=== PATIENT | male | born 1960 | race Hispanic/Latino ===

== ENCOUNTER 2018-12-23 13:56 | Inpatient (IN) | payer MEDICARE ==
[2018-12-23] MEDS ORDERED: D50W (25GM) Syringe IV PRN (15:18)
[2018-12-23] MEDS ORDERED: TYLENOL PO PRN (15:34)
[2018-12-23] MEDS ORDERED: DULCOLAX PR PRN (15:34)
--- NOTE | 2018-12-23 15:45 | History and Physical Report ---
History of Present Illness Date: 12/23/18 Date of admission: 12/23/2018 Chief Complaint: Left BKA History of present illness: 58-year-old gentleman with a recent history of left great toe amputation was discharged home with IV antibiotics. Developed worsening infection and upon evaluation at the ER was admitted for further treatment of the infection with more antibiotics. Vascular surgery was consulted and after further evaluation recommended BKA due to gangrenous changes and poor vascular supply. He was evaluated by therapy and found to need acute inpatient rehabilitation in order to facilitate a safe discharge home with the best functional improvement po ssible. He will need a follow-up appointment with his vascular surgeon in the next week or so. Pain is poorly controlled and the patient states that he was on IV pain medications up until time of discharge. Informed him that he will be on oral pain medications here and that he should've been transitioned to oral pain medications before he was transferred for rehabilitation. We'll monitor his pain level and treat appropriately he is currently taking Dilaudid by mouth. Patient also states that he is having significant nausea without vomiting. In going over his medications it also appears that he has chronic constipation at home for which he does take lactulose on a daily basis with each meal. After the patient was cleared medically he was transferred for further rehabilitation. Past History Past Medical History: CAD, diabetes (Type 1), dialysis, hypertension, PVD, renal failure (hemodialysis) Past Surgical History: cholecystectomy, CABG, Other (fistula, lens implants, renal stone) Social history: , lives with family, full code. denies: smoking, alcohol abuse, prescription drug abuse Family history: CAD, diabetes, stroke Medications and Allergies Allergies Allergy/AdvReac Type Severity Reaction Status Date / Time morphine Allergy Nausea Verified 12/23/18 14:00 &VOMITING oxycodone Allergy Nausea & Verified 12/23/18 14:00 VOMITING Active Meds: Active Medications Acetaminophen (Tylenol) 650 mg PO Q6H PRN PRN Reason: Non Cardiac Pain or Temp>100.5 Amlodipine Besylate (Norvasc) 10 mg PO QDAY ESTELA Ascorbic Acid (Vitamin C) 250 mg PO QDAY ESTELA Aspirin (Halfprin Ec) 81 mg PO QDAY ESTELA Bisacodyl (Dulcolax) 10 mg [place] QDAY PRN PRN Reason: Constipation Calcitriol (Rocaltrol) 0.25 mcg PO QDAY ESTELA Dextrose (D50w (25gm) Syringe) 50 ml IV PRN PRN PRN Reason: Hypoglycemia Heparin Sodium (Porcine) (Heparin) 5,000 unit SUB-Q Q8HR ESTELA Hydromorphone HCl (Dilaudid) 2 mg PO Q6H PRN PRN Reason: Pain , Severe (7-10) Insulin Human Lispro (Humalog) 0 unit SUB-Q ACHS ESTELA; Protocol Isosorbide Mononitrate (Imdur) 60 mg PO QDAY ESTELA Lanthanum Carbonate (Fosrenol) 1,000 mg PO TIDWM [facility] Ondansetron HCl (Zofran Odt) 4 mg PO Q8H PRN PRN Reason: Nausea And Vomiting Pantoprazole Sodium (Protonix) 40 mg PO QDAY ESTELA Polyethylene Glycol (Miralax 3350) 17 gm PO QDAY PRN PRN Reason: Constipation Sodium Hypochlorite (Dakin's Half Strength) 1 applic TP DAILY ESTELA Zinc Sulfate (Zinc Sulfate) 220 mg PO QDAY ESTELA Review of Systems All systems: negative (ROS negative for 12 systems except as noted below with pertinent positives and negatives.) Constitutional: fatigue, no weight loss Ears, nose, mouth and throat: no decreased hearing, no dysphagia Cardiovascular: high blood pressure, decreased exercise tolerance, no chest pain, no orthopnea, no palpitations, no rapid/irregular heart beat Respiratory: snoring, no shortness of breath, no dyspnea on exertion Gastrointestinal: nausea, constipation, no vomiting, no diarrhea Genitourinary Male: no dysuria Musculoskeletal: shooting leg pain, leg numbness/tingling, limitation of motion, gait dysfunction, prior amputations, no shooting arm pain, no arm numbness/tingling Integumentary: wounds (left BKA), no rash, no pruritis, no redness Neurological: weakness, numbness, tingling, no head injury Psychiatric: no anxiety, no memory loss Endocrine: no cold intolerance Exam - Exam Narrative exam: MUSCULOSKELETAL SPECIALTY EXAM CONSTITUTIONAL: Well developed, well nourished, appropriately groomed LYMPHATIC: No appreciable abnormalities palpable in neck EENT: Visual scott full to confrontation. EOMI. Oropharynx clear. Hearing intact to soft voice RESPIRATORY: Clear to auscultation bilaterally, no increased work of breathing CARDIOVASCULAR: Regular Rate/ Rhythm, no swelling, edema or tenderness in BUE or BLE. Pulses palpable in all extremities. All extremities warm. GI: + bowel sounds, soft, NTTP, nondistended. INTEGUMENTARY: Normal, no lesion, rash, masses or bruising noted in extremities except for left BKA MUSCULOSKELETAL: BUE and BLE normal without defect, crepitus, subluxation, effusion, arthritic changes or TTP except for left BKA. BUE 4+/5, good ROM, with normal tone. RLE 4+/5 good ROM, with normal tone. LLE is reduced range of motion and strength primarily due to pain. NEURO: CN 2-12 grossly intact. Sensation intact in all extremities. Reflexes 2+ bilaterally at biceps, brachioradialis and right patella. No clonus at ankle. Coordination intact in BUE. No tremor noted in 4 extremities. POSTURE and GAIT: Sitting posture good. Balance appears reasonable. Gait deferred until seen with therapy. PSYCH: Alert, oriented x3, affect appears normal. Insight appears intact. Assessment and Plan Assessment and plan: Patient was assessed and evaluated for Acute Inpatient Rehab Unit. Due to the patients above-mentioned medical complexity, along with decreased functional mobility and self care, this patient continues to require and be sabiha ropriate for a comprehensive, multidisciplinary [id number] rehabilitation program. These needs cannot be met in an outpatient or other less intensive setting. The patient would continue to benefit from skilled therapy intervention for at least 3 hours per day, five days a week, with techniques specific to the needs of the patient to improve function, activities of daily living, and reintegration into the community. The patient continues to require: -- OT to improve ROM, self-care, and learn use of adaptive equipment -- PT to improve strength and balance, functional transfers, and ambulation with energy conservation techniques to improve functional mobility -- 24 hour RN to ensure and prevent skin breakdown, promote progressive independence while ensuring safety, ensure education regarding medications, and incorporation of the rehabilitation at the bedside -- 24 hour Poly Area Supervisor to coordinate this interdisciplinary program, and to manage/prevent complications as a result of the patients medical comorbidities. -Plan of care by day 4 -Weekly team conferences With such a program, there is a reasonable certainty that the goals individualized for this patient can be achieved within the specified length of stay. Status post left BKA: Monitor residual limb for any signs of infection are skin breakdown. We'll also monitor for any phantom sensation or phantom pain which the patient denies at this time. Patient does have sharp postsurgical pain which is still present and poorly controlled. Encouraged patient to maintain the stump protector in order to protect the residual limb. We'll work with the patient to develop his ability to improve his independent mobility, range of motion and strengthening of the residual limb in order to be an acceptable candidate for a prosthesis. Have discussed with the patient the increased level of work that is required to ambulate with a prosthetic limb and will encourage him to continue with maintaining his cardiovascular health. Diabetes type 1: Maintain the patient on his insulin pump. He is able to maintain his sugars reasonably at home and should be O to continue with that here. We will spot check him with our meter as well to ensure that he is not getting hyper-or hypoglycemic. Hypertension continue medications and adjust as needed for normotension. End-stage renal disease on hemodialysis: Thursday. Medications have been started from previous hospital. Have consulted nephrology for management of end-stage renal disease and hemodialysis. CAD: Continue aspirin, monitor for any further signs of cardiac issues. Patient is s/p CABG Constipation: Problem for the patient at home as well, he states that he does take lactulose typically with every meal. Have order that for him here as well with hold orders. Z73.6 ADL dysfunction: OT will work on improving ability to perform ADLs (including assistive devices) to increase independence and decrease caregiver burden and improve functional transfers and mobility training. R26.2 Difficulty walking: PT will work on gait training and proper use of assistive devices and advance as appropriate to use of stairs and outside ambulation on uneven surfaces. R26.81 Unsteadiness on feet: PT will work on improving static and dynamic sitting and standing balance as well as proper use of assistive devices to decrease risk of falls. R26.89 Abnormality of gait: PT will work to improve safety and efficiency of gait through neuromotor training and gait training along with instruction on proper use of assistive devices. M62.81 Muscle weakness: PT & OT will work on strengthening exercises to improve functional strength including mixture of closed and open kinetic chain exercises. R53.81 Debility: PT & OT will work on improving overall functional status to improve participation with ADLs, mobility and social involvement. R53.83 Fatigue: PT & OT will work on improving endurance through aerobic exercises and therapeutic activity while monitoring patients tolerance for activity and vital signs as needed. DVT ppx: Heparin Pain: Continue physical modalities in therapy and pain medications as needed to achieve functional pain control. Sleep: Monitor and address as needed. Bowel: Monitor and address as needed. Appetite: Monitor and address as needed. Discharge planning: Pending therapy progress and care plan meeting. Will continue discussion with therapy team, SW, patient and family. Restrictions/ Precautions: Falls WB status: FWB Functional Hx: ADLs: Independent Cognition: Independent Mobility: No AD Barriers to Discharge: Decreased mobility and ability to perform self care, balance deficits, weakness, poorly controlled pain, constipation Estimated Length of Stay: 1418 days Discharge Destination: Home with family POST ADMISSION PHYSICIAN EVALUATION I have examined the patient and find that functional status, medical condition and appropriateness for IRF admission are essentially unchanged from those described in the preadmission screening. Will monitor for worsening pain from the amputation site as well as phantom pain, wound infection, DVT/PE, bowel and bladder complications and complications due to ESRD, hypertension, diabetes and electrolyte abnormalities. Will attempt to avoid occurrence of these issues or treat them if they present themselves.
[2018-12-23] MEDS ORDERED: HumaLOG SUB-Q SCH (16:30)
[2018-12-23] MEDS: DILAUDID PO PRN ×2 (17:26→23:36)
[2018-12-23] MEDS ORDERED: Renal Caps PO ONE (18:00)
[2018-12-23] MEDS: [UNRECOGNIZED DRUG - OTHER] SUB-Q SCH (22:12)
[2018-12-23] MEDS: FOSRENOL PO SCH (22:13)
[2018-12-23] MEDS: HEPARIN SUB-Q SCH (22:13)
[2018-12-23] MEDS: CEPHULAC PO SCH (22:13)
[2018-12-24] MEDS: DILAUDID PO PRN ×3 (05:35→22:06)
[2018-12-24] MEDS: HEPARIN SUB-Q SCH ×3 (05:36→22:07)
[2018-12-24] MEDS: ZOFRAN ODT PO PRN (05:41)
[2018-12-24 06:32] LABS: Hematocrit 25.6 % (35.5-45.6); Hemoglobin 8.6 gm/dl (11.8-15.2); Mean Corpuscular HGB Conc 34 % (32-34); Mean Corpuscular Volume 97 fl (84-94); Platelet Count 244 K/mm3 (140-440); Red Blood Count 2.64 M/mm3 (3.65-5.03); Red Cell Distribution Width 14.5 % (13.2-15.2)
[2018-12-24 06:52] LABS: Albumin 3.1 g/dL (3.9-5); Calcium 9.2 mg/dL (8.4-10.2)
[2018-12-24] MEDS: [UNRECOGNIZED DRUG - OTHER] SUB-Q SCH ×4 (08:00→23:27)
[2018-12-24] MEDS: VITAMIN C PO SCH (08:45)
[2018-12-24] MEDS: ROCALTROL PO SCH (08:45)
[2018-12-24] MEDS: IMDUR PO SCH (08:45)
[2018-12-24] MEDS: NORVASC PO SCH (08:45)
[2018-12-24] MEDS: CEPHULAC PO SCH ×3 (08:46→22:06)
[2018-12-24] MEDS: HALFPRIN EC PO SCH (08:46)
[2018-12-24] MEDS: FOSRENOL PO SCH ×3 (08:46→22:07)
[2018-12-24] MEDS: PROTONIX PO SCH (08:46)
[2018-12-24] MEDS ORDERED: NACL 0.9% 100 ML IV PRN (09:00)
[2018-12-24] MEDS ORDERED: DAKIN'S HALF STRENGTH TP SCH (10:00)
[2018-12-24] MEDS: DAKIN'S HALF STRENGTH TP SCH (11:05)
[2018-12-24 11:15] LABS: Hepatitis B Surface Antigen Non-Reactive (Negative); Hepatitis C Virus Antibody Non-Reactive (NonReactive)
[2018-12-24] MEDS: ZINC SULFATE PO SCH (12:21)
--- NOTE | 2018-12-24 13:36 | Progress Note ---
Subjective Date of service: 12/24/18 Principal diagnosis: Left BKA Interval history: 58-year-old gentleman with a recent history of left great toe amputation was discharged home with IV antibiotics. Developed worsening infection and upon evaluation at the ER was admitted for further treatment of the infection with more antibiotics. Vascular surgery was consulted and after further evaluation recommended BKA due to gangrenous changes and poor vascular supply. He was evaluated by therapy and found to need acute inpatient rehabilitation in order to facilitate a safe discharge home with the best functional improvement possible. He will need a follow-up appointment with his vascular surgeon in the next week or so. Pain is poorly controlled and the patient states that he was on IV pain medications up until time of discharge. Informed him that he will be on oral pain medications here and that he should've been transitioned to oral pain medications before he was transferred for rehabilitation. We'll monitor his pain level and treat appropriately he is currently taking Dilaudid by mouth. Patient also states that he is having significant nausea without vomiting. In going over his medications it also appears that he has chronic constipation at home for which he does take lactulose on a daily basis with each meal. After the patient was cleared medically he was transferred for further rehabilitation. Patient is participating in therapy and making reasonable progress. Taking rest breaks as needed. -BM / + flatus. Discussed use of suppository. States pain is not well controlled. Will increase frequency of pain medication. Denies palpitations, dyspnea, cough, N/V, weakness, or joint pain. Looked at wound with team this AM. All records, vitals, labs and medications were reviewed. No other issues per patient, nursing or therapy. Objective - Exam Narrative Exam: MUSCULOSKELETAL SPECIALTY EXAM CONSTITUTIONAL: Well developed, well nourished, appropriately groomed EENT: EOMI. Hearing intact to soft voice RESPIRATORY: Clear to auscultation bilaterally, no increased work of breathing CARDIOVASCULAR: Regular Rate/ Rhythm, no swelling, edema or tenderness in BUE or BLE. All extremities warm. GI: + bowel sounds, soft, NTTP, nondistended. INTEGUMENTARY: Normal, no lesion, rash, masses or bruising noted in extremities except for left BKA which has sutures and pao in place with minimal serosanguinous drainage. No signs of infection MUSCULOSKELETAL: BUE and BLE normal without defect, crepitus, subluxation, effusion, arthritic changes or TTP except for left BKA. BUE 4+/5, good ROM, with normal tone. RLE 4+/5 good ROM, with normal tone. LLE is reduced range of motion and strength primarily due to pain. NEURO: CN 2-12 grossly intact. Sensation intact in all extremities. No tremor noted in 4 extremities. POSTURE and GAIT: Sitting posture good. Balance appears reasonable. Gait deferred until seen with therapy. PSYCH: Alert, oriented x3, affect appears normal. Insight appears intact. - Constitutional Vitals: Vital Signs - 12hr 12/24/18 12/24/18 12/24/18 04:01 04:44 07:34 Temperature 36.3 C L 37.1 C 36.8 C Pulse Rate 102 H 96 H Respiratory 18 18 Rate Blood Pressure 152/65 160/65 O2 Sat by Pulse 97 94 Oximetry 12/24/18 12/24/18 08:45 12:14 Temperature 36.7 C Pulse Rate 96 H 117 H Respiratory 18 Rate Blood Pressure 160/65 178/64 O2 Sat by Pulse 98 Oximetry - Allied health notes Allied health notes reviewed: nursing, PT, OT FIMS assessment as documented by PT/OT/ST: Social interaction/Memory/Problem solving Social Interaction FIM Score 7. Complete [place] (Interacts appropriately. Controls temper.) Memory FIM Score 7. Complete [place] (Remembers people and routines.) Problem Solving FIM Score 7. Complete [place] (Solves complex problems. Self corrects.) - Labs CBC & Chem 7: 12/24/18 06:14 12/24/18 06:14 Labs: Laboratory Results - last 72 hr 12/24/18 12/24/18 12/24/18 06:14 06:14 10:01 WBC 11.3 H RBC 2.64 L Hgb 8.6 L Hct 25.6 L MCV 97 H MCH 33 H MCHC 34 RDW 14.5 Plt Count 244 Sodium 136 L Potassium 4.7 Chloride 95.0 L Carbon Dioxide 28 Anion Gap 18 BUN 35 H Creatinine 6.9 H Estimated GFR 8 BUN/Creatinine Ratio 5 Glucose 123 H POC Glucose Calcium 9.2 Total Bilirubin 0.30 AST 24 ALT 20 Alkaline Phosphatase 98 Total Protein 6.0 L Albumin 3.1 L Albumin/Globulin Ratio 1.1 Hepatitis A IgM Ab Non-reactive Hep Bs Antigen Non-reactive Hep B Core IgM Ab Non-reactive Hepatitis C Antibody Non-reactive 12/24/18 11:59 WBC RBC Hgb Hct MCV MCH MCHC RDW Plt Count Sodium Potassium Chloride Carbon Dioxide Anion Gap BUN Creatinine Estimated GFR BUN/Creatinine Ratio Glucose POC Glucose 215 H Calcium Total Bilirubin AST ALT Alkaline Phosphatase Total Protein Albumin Albumin/Globulin Ratio Hepatitis A IgM Ab Hep Bs Antigen Hep B Core IgM Ab Hepatitis C Antibody Assessment and Plan Status post left BKA: Monitor residual limb for any signs of infection are skin breakdown. We'll also monitor for any phantom sensation or phantom pain which the patient denies at this time. Patient does have sharp postsurgical pain which is still present and poorly controlled. Encouraged patient to maintain the stump protector in order to protect the residual limb. We'll work with the patient to develop his ability to improve his independent mobility, range of motion and strengthening of the residual limb in order to be an acceptable candidate for a prosthesis. Have discussed with the patient the increased level of work that is required to ambulate with a prosthetic limb and will encourage him to continue with maintaining his cardiovascular health. Diabetes type 1: Maintain the patient on his insulin pump. He is able to maintain his sugars reasonably at home and should be able to continue with that here. We will spot check him with our meter as well to ensure that he is not getting hyper-or hypoglycemic. Hypertension continue medications and adjust as needed for normotension. End-stage renal disease on hemodialysis: Thursday. Medications have been started from previous hospital. Have consulted nephrology for management of end-stage renal disease and hemodialysis. CAD: Continue aspirin, monitor for any further signs of cardiac issues. Patient is s/p CABG Constipation: Problem for the patient at home as well, he states that he does take lactulose typically with every meal. Have order that for him here as well with hold orders. Z73.6 ADL dysfunction: OT will work on improving ability to perform ADLs (including assistive devices) to increase independence and decrease caregiver burden and improve functional transfers and mobility training. R26.2 Difficulty walking: PT will work on gait training and proper use of assistive devices and advance as appropriate to use of stairs and outside ambulation on uneven surfaces. R26.81 Unsteadiness on feet: PT will work on improving static and dynamic sitting and standing balance as well as proper use of assistive devices to decrease risk of falls. R26.89 Abnormality of gait: PT will work to improve safety and efficiency of gait through neuromotor training and gait training along with instruction on proper use of assistive devices. M62.81 Muscle weakness: PT & OT will work on strengthening exercises to improve functional strength including mixture of closed and open kinetic chain exercises. R53.81 Debility: PT & OT will work on improving overall functional status to improve participation with ADLs, mobility and social involvement. R53.83 Fatigue: PT & OT will work on improving endurance through aerobic exercises and therapeutic activity while monitoring patients tolerance for activity and vital signs as needed. DVT ppx: Heparin Pain: Continue physical modalities in therapy and pain medications as needed to achieve functional pain control. Increase pain med frequency Sleep: Monitor and address as needed. Bowel: Monitor and address as needed. Appetite: Monitor and address as needed. Discharge planning: Pending therapy progress and care plan meeting. Will con tinue discussion with therapy team, SW, patient and family. Restrictions/ Precautions: Falls WB status: FWB Functional Hx: ADLs: Independent Cognition: Independent Mobility: No AD Barriers to Discharge: Decreased mobility and ability to perform self care, balance deficits, weakness, poorly controlled pain, constipation Estimated Length of Stay: 1418 days Discharge Destination: Home with family
--- NOTE | 2018-12-24 14:01 | Consultation ---
History of Present Illness - Reason for Consult Consult date: 12/24/18 end stage renal disease - History of Present Illness This is a 58 year old man with ESRD who presents for acute inpatient rehab. He had a recent left great toe amputation but developed worsening infection and ultimately had BKA due to gangrenous changes and poor vascular supply. He usually dialyzes MWF at [facility], and has been doing well his recent sessions and denies any issues with HD. No recent cramping, lightheadedness, dizziness. Currently, in good spirits and states that he wants to work on his strength. No chest pain, dyspnea, nausea, vomiting noted. Access has been working well. Past History Past Medical History: CAD, diabetes (Type 1), dialysis, hypertension, PVD, renal failure (hemodialysis) Past Surgical History: cholecystectomy, CABG, Other (fistula, lens implants, renal stone) Social history: , lives with family, full code. denies: smoking, alcohol abuse, prescription drug abuse Family history: CAD, diabetes, stroke Medications and Allergies Allergies Allergy/AdvReac Type Severity Reaction Status Date / Time morphine Allergy Nausea Verified 12/23/18 14:00 &VOMITING oxycodone Allergy Nausea & Verified 12/23/18 14:00 VOMITING Home Medications Medication Instructions Recorded Confirmed Last Taken Type Ascorbic Acid [Vitamin C] 250 mg PO QDAY 12/24/18 12/24/18 Unknown History Bimatoprost [Lumigan] 1 drop OU HS 12/24/18 12/24/18 Unknown History Calcitriol [Rocaltrol] 0.25 mcg PO DAILY 12/24/18 12/24/18 Unknown History ISOSORBIDE MONOnitrate [Imdur ER] 60 mg PO DAILY 12/24/18 12/24/18 Unknown History Lactulose 20 gram PO TID 12/24/18 12/24/18 Unknown History Lanthanum Carbonate [Fosrenol] 1,000 mg PO DAILY 12/24/18 12/24/18 Unknown H istory Latanoprost 0.005% 1 drop OU HS 12/24/18 12/24/18 Unknown History Losartan [Cozaar] 25 mg PO DAILY 12/24/18 12/24/18 Unknown History Pantoprazole [Protonix] 40 mg PO QDAY 12/24/18 12/24/18 Unknown History Prochlorperazine [Compazine] 1 tab PO TID PRN 12/24/18 12/24/18 Unknown History Rivaroxaban [Xarelto] 2.5 mg PO DAILY 12/24/18 12/24/18 Unknown History Senna 1 tab PO BID 12/24/18 12/24/18 Unknown History Zinc Sulfate 1 cap PO DAILY 12/24/18 12/24/18 Unknown History amLODIPine [Norvasc] 10 mg PO DAILY 12/24/18 12/24/18 Unknown History Active Meds: Active Medications Acetaminophen (Tylenol) 650 mg PO Q6H PRN PRN Reason: Non Cardiac Pain or Temp>100.5 Amlodipine Besylate (Norvasc) 10 mg PO QDAY [facility] Last Admin: 12/24/18 08:45 Dose: 10 mg Documented by: Ascorbic Acid (Vitamin C) 250 mg PO QDAY [facility] Last Admin: 12/24/18 08:45 Dose: 250 mg Documented by: Aspirin (Halfprin Ec) 81 mg PO QDAY [facility] Last Admin: 12/24/18 08:46 Dose: 81 mg Documented by: Bisacodyl (Dulcolax) 10 mg [place] QDAY PRN PRN Reason: Constipation Calcitriol (Rocaltrol) 0.25 mcg PO QDAY [facility] Last Admin: 12/24/18 08:45 Dose: 0.25 mcg Documented by: Dextrose (D50w (25gm) Syringe) 50 ml IV PRN PRN PRN Reason: Hypoglycemia Epoetin Zack (Procrit) 4,000 unit IV ALFRED PRN PRN Reason: hemodialysis Heparin Sodium (Porcine) (Heparin) 5,000 unit SUB-Q Q8HR [facility] Last Admin: 12/24/18 05:36 Dose: 5,000 unit Documented by: Heparin Sodium (Porcine) (Heparin 10,000 Units/10 Ml) 2,000 unit IV ALFRED PRN PRN Reason: hemodialysis Heparin Sodium (Porcine) (Heparin 10,000 Units/10 Ml) 400 unit IV ALFRED PRN PRN Reason: hemodialysis Hydromorphone HCl (Dilaudid) 2 mg PO Q4H PRN PRN Reason: Pain , Severe (7-10) Sodium Chloride (Nacl 0.9%) 100 mls @ 999 mls/hr IV ALFRED PRN PRN Reason: Hypotension Isosorbide Mononitrate (Imdur) 60 mg PO QDAY [facility] Last Admin: 12/24/18 08:45 Dose: 60 mg Documented by: Lactulose (Cephulac) 20 gm PO TID [facility] Last Admin: 12/24/18 08:46 Dose: 20 gm Documented by: Lanthanum Carbonate (Fosrenol) 1,000 mg PO TIDWM [facility] Last Admin: 12/24/18 12:21 Dose: 1,000 mg Documented by: Miscellaneous Medication (Nph) 0 pump SUB-Q ACHS [facility] Last Admin: 12/24/18 12:03 Dose: Not Given Documented by: Ondansetron HCl (Zofran Odt) 4 mg PO Q8H PRN PRN Reason: Nausea And Vomiting Last Admin: 12/24/18 05:41 Dose: 4 mg Documented by: Pantoprazole Sodium (Protonix) 40 mg PO QDAY [facility] Last Admin: 12/24/18 08:46 Dose: 40 mg Documented by: Paricalcitol (Zemplar) 1 mcg IV ALFRED PRN PRN Reason: hemodialysis Polyethylene Glycol (Miralax 3350) 17 gm PO QDAY PRN PRN Reason: Constipation Sodium Hypochlorite (Dakin's Half Strength) 1 applic TP DAILY [facility] Zinc Sulfate (Zinc Sulfate) 220 mg PO QDAY [facility] Last Admin: 12/24/18 12:21 Dose: 220 mg Documented by: Review of Systems All systems: negative (as per HPI) Exam - Vital Signs Vital signs: Vital Signs Resp 18 12/23/18 17:26 - General Appearance General appearance: well-developed, well-nourished, appears stated age EENT: PERRL, mucous membranes moist Neck: Present: neck supple, trachea midline. Absent: JVD/HJR, Masses Respiratory: Clear to Ascultation Heart: regular, normal heart rate, S1S2, no murmurs Gastrointestinal: Present: normal. Absent: tenderness, distended, masses, guarding Integumentary: no rash, warm and dry Neurologic: no focal deficit, alert and oriented x3, gait normal, strength 5/5 Musculoskeletal: Present: other (BKA noted) Psychiatric: mood/affect appropriate, cooperative Additional exam: RUE AVF with good thrill, bruit Results - Lab Results 12/24/18 06:14 12/24/18 06:14 Most recent lab results Calcium 9.2 mg/dL (8.4-10.2) 12/24/18 06:14 Assessment and Plan Assessment: -ESRD on HD -s/p left BKA -DM on insulin pump -HTN -CAD s/p CABG This is a 58 year old man with ESRD who presents with need for inpatient rehab s/p BKA Plan: -continue HD MWF while inpatient -will continue outpatient ESAs and vitamin D agonists with HD -hold IV iron given need for antibiotics -UF as tolerated -continue home HTN medications -avoid nephrotoxins, renally dose all medications Thank you for this consult. Please do not hesitate to reach out to us with questions or concerns.
[2018-12-24] MEDS: HEPARIN 10,000 UNITS/10 ML IV PRN ×2 (15:35→16:00)
[2018-12-24] MEDS ORDERED: NACL 0.9 (PRIMING MACHINE ONLY DIALYSIS) MC ONE (17:42)
[2018-12-24] MEDS: ZEMPLAR IV PRN (18:34)
[2018-12-24] MEDS: PROCRIT IV PRN (18:34)
[2018-12-25] MEDS: HEPARIN SUB-Q SCH ×3 (05:35→23:59)
[2018-12-25] MEDS: DILAUDID PO PRN ×2 (05:38→20:20)
[2018-12-25] MEDS: IMDUR PO SCH (09:14)
[2018-12-25] MEDS: HALFPRIN EC PO SCH (09:14)
[2018-12-25] MEDS: ZINC SULFATE PO SCH (09:14)
[2018-12-25] MEDS: CEPHULAC PO SCH ×3 (09:14→22:09)
[2018-12-25] MEDS: VITAMIN C PO SCH (09:14)
[2018-12-25] MEDS: FOSRENOL PO SCH ×3 (09:15→17:32)
[2018-12-25] MEDS: PROTONIX PO SCH (09:15)
[2018-12-25] MEDS: NORVASC PO SCH (09:15)
[2018-12-25] MEDS: ROCALTROL PO SCH (09:15)
[2018-12-25] MEDS: [UNRECOGNIZED DRUG - OTHER] SUB-Q SCH ×4 (09:23→23:35)
[2018-12-25] MEDS: DAKIN'S HALF STRENGTH TP SCH (12:45)
[2018-12-25] MEDS: ZOFRAN ODT PO PRN (12:46)
--- NOTE | 2018-12-25 13:11 | Progress Note ---
Assessment and Plan Assessment: -ESRD on HD -s/p left BKA -DM on insulin pump -HTN -CAD s/p CABG Plan: -continue HD MWF while inpatient -will continue outpatient ESAs and vitamin D agonists with HD -hold IV iron given need for antibiotics -UF as tolerated -continue home HTN medications -avoid nephrotoxins, renally dose all medications Subjective Date of service: 12/25/18 Principal diagnosis: Left BKA Interval history: resting in bed today Objective - Exam Narrative Exam: General appearance: well-developed, well-nourished, appears stated age EENT: PERRL, mucous membranes moist Neck: Present: neck supple, trachea midline. Absent: JVD/HJR, Masses Respiratory: Clear to Ascultation Heart: regular, normal heart rate, S1S2, no murmurs Gastrointestinal: Present: normal. Absent: tenderness, distended, masses, guarding Integumentary: no rash, warm and dry Neurologic: no focal deficit, alert and oriented x3, gait normal, strength 5/5 Musculoskeletal: Present: other (BKA noted) Psychiatric: mood/affect appropriate, cooperative Additional exam: RUE AVF with good thrill, bruit - Vital Signs Vital signs: Vital Signs - 12hr 12/25/18 12/25/18 12/25/18 05:00 07:58 09:14 Temperature 98.3 F 98.7 F Pulse Rate 96 H 84 84 Respiratory 18 18 Rate Blood Pressure 143/57 143/57 Blood Pressure 146/51 [Left] O2 Sat by Pulse 97 96 Oximetry 12/25/18 12:01 Temperature 98.1 F Pulse Rate 93 H Respiratory 18 Rate Blood Pressure 131/47 Blood Pressure [Left] O2 Sat by Pulse 98 Oximetry - Lab 12/24/18 06:14 12/24/18 06:14 Most recent lab results Calcium 9.2 mg/dL (8.4-10.2) 12/24/18 06:14 Medications & Allergies - Medications Allergies/Adverse Reactions: Allergies morphine Allergy (Verified 12/23/18 14:00) Nausea &VOMITING oxycodone Allergy (Verified 12/23/18 14:00) Nausea & VOMITING Home Medications: Home Medications Medication Instructions Recorded Confirmed Last Taken Type Ascorbic Acid [Vitamin C] 250 mg PO QDAY 12/24/18 12/24/18 Unknown History Bimatoprost [Lumigan] 1 drop OU HS 12/24/18 12/24/18 Unknown History Calcitriol [Rocaltrol] 0.25 mcg PO DAILY 12/24/18 12/24/18 Unknown History ISOSORBIDE MONOnitrate [Imdur ER] 60 mg PO DAILY 12/24/18 12/24/18 Unknown History Lactulose 20 gram PO TID 12/24/18 12/24/18 Unknown History Lanthanum Carbonate [Fosrenol] 1,000 mg PO DAILY 12/24/18 12/24/18 Unknown History Latanoprost 0.005% 1 drop OU HS 12/24/18 12/24/18 Unknown History Losartan [Cozaar] 25 mg PO DAILY 12/24/18 12/24/18 Unknown History Pantoprazole [Protonix] 40 mg PO QDAY 12/24/18 12/24/18 Unknown History Prochlorperazine [Compazine] 1 tab PO TID PRN 12/24/18 12/24/18 Unknown History Rivaroxaban [Xarelto] 2.5 mg PO DAILY 12/24/18 12/24/18 Unknown History Senna 1 tab PO BID 12/24/18 12/24/18 Unknown History Zinc Sulfate 1 cap PO DAILY 12/24/18 12/24/18 Unknown History amLODIPine [Norvasc] 10 mg PO DAILY 12/24/18 12/24/18 Unknown History Active Medications: Generic Name Dose Route Start Last Admin Trade Name Freq PRN Reason Stop Dose Admin Acetaminophen 650 mg 12/23/18 15:34 Tylenol PO Q6H PRN Non Cardiac Pain or Temp>100.5 Amlodipine Besylate 10 mg 12/24/18 08:00 12/25/18 09:15 Norvasc PO 10 mg QDAY ESTELA Administration Ascorbic Acid 250 mg 12/24/18 08:00 12/25/18 09:14 Vitamin C PO 250 mg QDAY ESTELA Administration Aspirin 81 mg 12/24/18 08:00 12/25/18 09:14 Halfprin Ec PO 81 mg QDAY ESTELA Administration Bisacodyl 10 mg 12/23/18 15:34 Dulcolax [place] QDAY PRN Constipation Calcitriol 0.25 mcg 12/24/18 08:00 12/25/18 09:15 Rocaltrol PO 0.25 mcg QDAY ESTELA Administration Dextrose 50 ml 12/23/18 15:18 D50w (25gm) Syringe IV PRN PRN Hypoglycemia Epoetin Zack 4,000 unit 12/24/18 09:00 12/24/18 18:34 Procrit IV 4,000 unit ALFRED PRN Administration hemodialysis Heparin Sodium (Porcine) 5,000 unit 12/23/18 22:00 12/25/18 05:35 Heparin SUB-Q 5,000 unit Q8HR ESTELA Administration Heparin Sodium (Porcine) 2,000 unit 12/24/18 09:00 12/24/18 15:35 Heparin 10,000 Units/10 Ml IV 2,000 unit ALFRED PRN Administration hemodialysis Heparin Sodium (Porcine) 400 unit 12/24/18 09:00 12/24/18 16:00 Heparin 10,000 Units/10 Ml IV 400 unit ALFRED PRN Administration hemodialysis Hydromorphone HCl 2 mg 12/24/18 12:41 12/25/18 05:38 Dilaudid PO 2 mg Q4H PRN Administration Pain , Severe (7-10) Sodium Chloride 100 mls @ 999 mls/hr 12/24/18 09:00 Nacl 0.9% IV ALFRED PRN Hypotension Isosorbide Mononitrate 60 mg 12/24/18 08:00 12/25/18 09:14 Imdur PO 60 mg QDAY ESTELA Administration Lactulose 20 gm 12/23/18 20:00 12/25/18 09:14 Cephulac PO 20 gm TID ESTELA Administration Lanthanum Carbonate 1,000 mg 12/23/18 17:00 12/25/18 12:43 Fosrenol PO 1,000 mg TIDWM ESTELA Administration Miscellaneous Medication 0 pump 12/23/18 22:00 12/25/18 12:52 Nph SUB-Q Not Given ACHS ESTELA Ondansetron HCl 4 mg 12/23/18 15:34 12/25/18 12:46 Zofran Odt PO 4 mg Q8H PRN Administration Nausea And Vomiting Pantoprazole Sodium 40 mg 12/24/18 08:00 12/25/18 09:15 Protonix PO 40 mg QDAY ESTELA Administration Paricalcitol 1 mcg 12/24/18 09:00 12/24/18 18:34 Zemplar IV 1 mcg ALFRED PRN Administration hemodialysis Polyethylene Glycol 17 gm 12/23/18 15:34 Miralax 3350 PO QDAY PRN Constipation Sodium Hypochlorite 1 applic 12/24/18 10:00 12/25/18 12:45 Dakin's Half Strength TP 1 applicatio DAILY ESTELA Administration Zinc Sulfate 220 mg 12/24/18 08:00 12/25/18 09:14 Zinc Sulfate PO 220 mg QDAY ESTELA Administration
[2018-12-25] MEDS ORDERED: ZOFRAN ODT PO PRN (17:44)
--- NOTE | 2018-12-25 18:25 | XRay Report ---
ABDOMEN 1 VIEW INDICATION / CLINICAL INFORMATION: Nausea with vomiting, constipation. COMPARISON: None available. FINDINGS: TUBES / LINES: None. BOWEL GAS PATTERN: The colon contains a very large amount of stool with scattered gas. No dilated bow el loops are seen. FREE AIR / EXTRALUMINAL GAS: None seen. ADDITIONAL FINDINGS: There is severe generalized atherosclerosis. IMPRESSION: Findings consistent with constipation. Signer Name: Abdulkadir Salomon MD Signed: 12/25/2018 6:21 PM Workstation Name: [id number]
[2018-12-25 19:54] LABS: Hematocrit 26.7 % (35.5-45.6); Mean Corpuscular HGB Conc 34 % (32-34); Mean Corpuscular Volume 97 fl (84-94); Platelet Count 289 K/mm3 (140-440); Red Blood Count 2.75 M/mm3 (3.65-5.03); Red Cell Distribution Width 15.4 % (13.2-15.2)
[2018-12-25] MEDS: PHENERGAN PO PRN (20:19)
[2018-12-25 21:29] LABS: Calcium 9.4 mg/dL (8.4-10.2)
--- NOTE | 2018-12-25 21:35 | IRU Plan of Care ---
Interdisciplinary Plan of Care - IP IRU INTERDISCIPLINARY PLAN: [facility] Unit Plan of Care IRU Interdisciplinary Care Plan Start: 12/23/18 16:58 Freq: Admission then PRN Status: Active Protocol: Document 12/25/18 19:20 TH (Rec: 12/25/18 19:24 TH [id number]) Interdisciplinary Problem List Interdisciplinary Problem List Interdisciplinary Problem List Impaired Dressing,Impaired Query Text:Answers will Trigger Problems Mobility,Impaired Transfers, and Outcomes on Worklist. Impaired Toileting,Pain Management,Knowledge Deficits, Impaired Skin/Tissue Integrity ,Adjustment to Disability, Discharge Concerns,Community Reintergration,Impaired Home Management,Impaired Safety, Medications Education,Impaired Cardiovascular System IRU Interdisciplinary Care Plan Therapy Services Therapy Services Will Include: Physical Therapy,Occupational Query Text:Patient will be seen for a Therapy minimum of 3 hours of daily therapy 5 out of 7 days a week. Therapy intensity may be adjusted within a 7 consecutive day period to effectively serve the individual needs of the patient. Treatment Frequency/Intensity/Duration Treatment Frequency 5 days per week Treatment Intensity 3 hours per day Treatment Duration 10-14 days Problem Area: Eating/Swallowing Eating/Swallowing Outcomes Eating/Swallowing Interventions Problem Area: Bathing/Grooming Bathing/Grooming Outcomes Improve [place] w/ Grooming,Improve [place] w/ Bathing Bathing/Grooming Interventions ADL Training,Use of Assistive Devices,Therapeutic Exercise, Therapeutic Activity, Neuromuscular Re-Education, Balance Work,Activity Tolerance Work,Patient/ Caregiver Education Problem Area: Dressing Dressing Outcomes Improve [place] w/ UB Dressing,Improve [place] w/ LB Dressing Dressing Interventions ADL Training,Use of Assistive Devices,Neuromuscular Re- Education,Therapeutic Exercise ,Balance Work,Modalities, Patient/Caregiver Education Problem Area: Mobility Mobility Outcomes Improve [place] w/ Bed Mobility,Improve [place] w/ Ambulation,Improve [place] w/ Wheelchair Mobility Interventions Therapeutic Exercise, Neuromuscular Re-Ed.,Activity Tolerance Work,Modalities,Use of Assistive Devices,Patient/ Caregiver Education,Bed Mobility Work,Household Mobility Work,W/C Mobility Work Problem Area: Transfers Transfers Outcomes Improve [place] w/ Bed Transfers,Improve [place] w/ Toilet Transfers,Improve [place] w/ Tub/Shower Transfers Transfers Interventions Transfer Training,Therapeutic Exercise,Neuromuscular Re- Education,Visual/Perceptual Training,Activity Tolerance Work,Use of Assistive Devices, Patient/Caregiver Education Problem Area: Bowel/Bladder Managment Bowel/Bladder Outcomes Bowel/Bladder Interventions Problem Area: Toileting Toileting Outcomes Improve [place] w/ Toileting Toileting Interventions ADL Training,Balance Work Problem Area: Nutrition Nutrition Outcomes Nutrition Interventions Problem Area: Comprehension Comprehension Outcomes Comprehension Interventions Problem Area: Expression Expression Outcomes Expression Interventions Problem Area: Problem Solving Problem Solving Outcomes Problem Solving Interventions Problem Area: Memory Memory Outcomes Memory Interventions Problem Area: Pain Management Pain Management Outcomes Pain Management Interventions Problem Area: Knowledge Deficits Knowledge Deficits Outcomes Knowledge Deficits Interventions Problem Area: Skin/Tissue Integrity Skin/Tissue Integrity Outcomes Exhibit Healing of Wound/ Incision,Demonstrate Understanding of Self Wound Care Skin/Tissue Integrity Interventions Skin/Wound Care,Dressing Change Education Problem Area: Social Interaction Social Interaction Outcomes Social Interaction Interventions Problem Area: Adjustment to Disability Adjustment to Disability Outcomes Adjustment to Disability Interventions Problem Area: Discharge Concerns Discharge Concerns Outcomes Discharge w/ Necessary Equipment,Have Home Health/ Outpatient Services Discharge Concerns Interventions Discharge Planning,Family/ Caregiver Training Problem Area: Community Reintegration Community Reintegration Outcomes Community Reintegration Interventions Problem Area: Home Management Home Management Outcomes Improve [place] w/ Home Management Home Management Interventions Meal Preparation,Clothing Care ,Activity Tolerance Work, Leisure Skills Development, House Cleaning,Shopping, Patient/Caregiver Education Problem Area: Safety Safety Outcomes Provide Safe Environment, Perform Selfcare Safely, Demonstrate Good Safety w/ Transfers/Mobility Safety Interventions Identify Fall Risk,[place] Pt. to Environment,Reduce Environmental Hazards,Neuro Check Assessment,Implement Mechanical Devices, i.e. Chair Alarm (Post Fall Update),Re- Educate Patient/Caregiver for Safety (Post Fall Update) Problem Area: Medication Education Medication Education Outcomes Medication Education Interventions Problem Area: Diabetes Education Diabetes Education Outcomes Demonstrate Knowledge of Resources Availlable in Diabetic Ed. Folder Diabetes Education Interventions Give Pt. Diabetes Education Folder,Discuss Pathophysiology of Diabetes Problem Area: Oxygenation Oxygenation Outcomes Oxygenation Interventions Problem Area: Cardiovascular Cardiovascular Outcomes Cardiovascular Interventions Physician Only Medical Prognosis and Rehabilitation Good medical prognosis and good rehab potential. Will continue to work to improve ability to perform ADLs and mobility and prepare him for acceptance of prosthesis and return home. Potential (Completed by Physician) This plan of care has been developed based on the findings from the pre- admission assessment, post admission physician evaluation, information gathered from the assessments from all therapy disciplines and other pertinent clinicians. The plan of care has been reviewed and discussed in collaboration with the interdisciplinary team. The plan of care will be reviewed and updated at least weekly.
[2018-12-25] MEDS ORDERED: FLEET MINERAL OIL PR ONE (22:00)
[2018-12-25] MEDS: SENOKOT PO SCH (23:00)
[2018-12-26] MEDS: HEPARIN SUB-Q SCH ×4 (05:41→22:39)
[2018-12-26] MEDS: DILAUDID PO PRN ×3 (06:27→20:10)
[2018-12-26] MEDS: PHENERGAN PO PRN ×2 (06:31→18:26)
[2018-12-26] MEDS: [UNRECOGNIZED DRUG - OTHER] SUB-Q SCH ×4 (08:35→22:40)
[2018-12-26] MEDS: PROTONIX PO SCH (10:30)
[2018-12-26] MEDS: ZINC SULFATE PO SCH (10:30)
[2018-12-26] MEDS: SENOKOT PO SCH ×2 (10:30→22:38)
[2018-12-26] MEDS: ROCALTROL PO SCH (10:30)
[2018-12-26] MEDS: VITAMIN C PO SCH (10:30)
[2018-12-26] MEDS: IMDUR PO SCH (10:31)
[2018-12-26] MEDS: HALFPRIN EC PO SCH (10:31)
[2018-12-26] MEDS: NORVASC PO SCH (10:31)
[2018-12-26] MEDS: FOSRENOL PO SCH ×3 (10:32→17:51)
[2018-12-26] MEDS: CEPHULAC PO SCH ×3 (10:39→20:11)
[2018-12-26] MEDS: DAKIN'S HALF STRENGTH TP SCH (13:15)
[2018-12-27] MEDS: HEPARIN SUB-Q SCH ×3 (05:46→21:51)
[2018-12-27 07:54] LABS: Hematocrit 26.8 % (35.5-45.6); Mean Corpuscular HGB Conc 34 % (32-34); Mean Corpuscular Volume 98 fl (84-94); Platelet Count 282 K/mm3 (140-440); Red Blood Count 2.74 M/mm3 (3.65-5.03); Red Cell Distribution Width 15.2 % (13.2-15.2)
[2018-12-27 08:05] LABS: Calcium 9.2 mg/dL (8.4-10.2)
[2018-12-27] MEDS: FOSRENOL PO SCH ×4 (09:14→21:48)
[2018-12-27] MEDS: PROTONIX PO SCH (09:14)
[2018-12-27] MEDS: ZINC SULFATE PO SCH (09:14)
[2018-12-27] MEDS: HALFPRIN EC PO SCH (09:15)
[2018-12-27] MEDS: ROCALTROL PO SCH (09:15)
[2018-12-27] MEDS: CEPHULAC PO SCH ×3 (09:15→21:48)
[2018-12-27] MEDS: VITAMIN C PO SCH (09:15)
[2018-12-27] MEDS: SENOKOT PO SCH ×2 (09:16→22:03)
[2018-12-27] MEDS: DILAUDID PO PRN ×2 (09:16→21:50)
[2018-12-27] MEDS: [UNRECOGNIZED DRUG - OTHER] SUB-Q SCH ×4 (09:17→21:54)
[2018-12-27] MEDS: IMDUR PO SCH (09:21)
[2018-12-27] MEDS: NORVASC PO SCH (09:21)
[2018-12-27] MEDS: PHENERGAN PO PRN (09:27)
--- NOTE | 2018-12-27 09:53 | Progress Note ---
Subjective Date of service: 12/27/18 Principal diagnosis: Left BKA Interval history: 58-year-old gentleman with a recent history of left great toe amputation was discharged home with IV antibiotics. Developed worsening infection and upon evaluation at the ER was admitted for further treatment of the infection with more antibiotics. Vascular surgery was consulted and after further evaluation recommended BKA due to gangrenous changes and poor vascular supply. He was evaluated by therapy and found to need acute inpatient rehabilitation in order to facilitate a safe discharge home with the best functional improvement possible. He will need a follow-up appointment with his vascular surgeon in the next week or so. Pain is poorly controlled and the patient states that he was on IV pain medications up until time of discharge. Informed him that he will be on oral pain medications here and that he should've been transitioned to oral pain medications before he was transferred for rehabilitation. We'll monitor his pain level and treat appropriately he is currently taking Dilaudid by mouth. Patient also states that he is having significant nausea without vomiting. In going over his medications it also appears that he has chronic constipation at home for which he does take lactulose on a daily basis with each meal. After the patient was cleared medically he was transferred for further rehabilitation. Patient is participating in therapy and making reasonable progress. Taking rest breaks as needed. +BM. I was called this weekend due to nausea and vomiting. Patient has issues with constipation so I ordered a KUB which showed significant stool burden without signs of ileus or obstruction. I adjusted bowel medications based on those findings. Patient apparently refused an enema but did finally started to have several large bowel movements with the rest of the medications he was taking. He states today that he is not having nausea and vomiting and feels better than he did over the weekend. States pain is still not well controlled and feels like the pain medications are not lasting long enough. On Thursday we decreased the interval time from every 6 hours to every 4 hours. He still describes the pain as sharp in nature with an occasional feeling of an electrical shock, improved with medication but states this wears off fairly quickly. He is aware of taking more pain medications will also increase his issue with constipation. Denies palpitations, dyspnea, cough, N/V, weakness, or joint pain. Looked at wound this morning and he still has some scant drainage on the lateral side that is serosanguineous in nature. The lateral side also has a little more erythema than previous on the flap. Contacted his vascular surgeon to report the findings and he asked for IV vanc. Slight transient WBC increase over the weekend without fever, no other signs of infection. All records, vitals, labs and medications were reviewed. No other issues per patient, nursing or therapy. Objective - Exam Narrative Exam: MUSCULOSKELETAL SPECIALTY EXAM CONSTITUTIONAL: Well developed, well nourished, appropriately groomed EENT: EOMI. Hearing intact to soft voice RESPIRATORY: Clear to auscultation bilaterally, no increased work of breathing CARDIOVASCULAR: Regular Rate/ Rhythm, no swelling, edema or tenderness in BUE or BLE. All extremities warm. GI: + bowel sounds, soft, NTTP, nondistended. INTEGUMENTARY: Normal, no lesion, rash, masses or bruising noted in extremities except for left BKA which has sutures and pao in place with minimal serosanguinous drainage and slight erythema today. No signs of infection MUSCULOSKELETAL: BUE and BLE normal without defect, crepitus, subluxation, effusion, arthritic changes or TTP except for left BKA. BUE 4+/5, good ROM, with normal tone. RLE 4+/5 good ROM, with normal tone. LLE is reduced range of motion and strength primarily due to pain. NEURO: CN 2-12 grossly intact. Sensation intact in all extremities. No tremor noted in 4 extremities. POSTURE and GAIT: Sitting posture good. Balance appears reasonable. Gait deferred until seen with therapy. PSYCH: Alert, oriented x3, affect appears normal. Insight appears intact. - Constitutional Vitals: Vital Signs - 12hr 12/27/18 12/27/18 12/27/18 05:55 07:51 09:16 Temperature 36.4 C 36.7 C Pulse Rate 93 H 92 H Respiratory 18 18 20 Rate Blood Pressure 133/55 152/69 O2 Sat by Pulse 96 99 Oximetry - Allied health notes Allied health notes reviewed: nursing, PT, OT FIMS assessment as documented by PT/OT/ST: Grooming Patient cleans teeth/dentures: Yes Patient brooks/brushes hair: Yes Patient washes, rinses and Yes dries face: Patient washes, rinses and Yes dries hands: Patient shaves: No Patient applies make-up: No Patient performs (no make-up/ /4 (100%) shaving): Grooming FIM Score 5. Supervision ([place] applies toothpaste or opens containers.) Toileting Toileting Device Urinal Patient able to: Adjust clothes before,Clean self,Adjust clothes after Patient able to perform: 3/3 (100%) Toileting FIM Score 5. Supv./Set-Up (Needs stand-by, set-up, applying prosth/orth.) Social interaction/Memory/Problem solving Social Interaction FIM Score 6. Mod. [place] (Mostly appropriate. May need meds. No supv.) Memory FIM Score 5. Supervision (Needs cueing <10%, stressful/ unfamiliar situations.) Problem Solving FIM Score 5. Supervision (Needs cueing <10% to solve routine problems.) Transfers Mode of Locomotion: Wheelchair Bed/Chair/Wheelchair Transfers 5. Supervision (Needs supv. or set-up for FIM Score sliding board, foot rests.) Toilet Transfers FIM Score 4. Minimal Assistance (Patient = 75% or more. Needs touching.) Patient transferred to: Shower Shower Transfers FIM Score 4. Minimal Assistance (Patient = 75% or more. Needs touching.) Locomotion- Stairs Device used on Stairs Handrail/s Number of Stairs Ascended/ 2 Descended Patient used handrail/support: Yes Stairs FIM Score 1. Total Assistance (Pt. < 25%, 2 person assist, or <4 stairs.) Locomotion- walk/wheelchair Most Frequent Mode of Wheelchair Locomotion: Ambulation Distance 45 Walking FIM Score 1. Total Assistance (Pt. < 25%, 2 or more person assist, or <50 ft.) Wheelchair Propulsion Distance 240 Wheelchair FIM Score 5. Supervision (Minimum 150 ft. supv./cues or 50 ft. independently.) Eating Eating FIM Score 6. Modified [place] (Special consistency or uses device.) Dressing-Upper body Patient retrieves clothing No items: Patient applies/removes UE No prosthesis or orthosis: Upper Body Dressing FIM Score 6. Modified [place] (Needs equipment, velcro or pros./orth.) Dressing-lower body Patient retrieves clothing No items: Patient applies/removes LE No prosthesis or orthosis: Lower Body Dressing FIM Score 5. Supv./Set-Up ([place] sets out clothes or applies pros./orth.) - Labs CBC & Chem 7: 12/27/18 06:56 12/27/18 06:56 Labs: Laboratory Results - last 72 hr 12/24/18 12/24/18 12/24/18 10:01 11:59 21:31 WBC RBC Hgb Hct MCV MCH MCHC RDW Plt Count Sodium Potassium Chloride Carbon Dioxide Anion Gap BUN Creatinine Estimated GFR BUN/Creatinine Ratio Glucose POC Glucose 215 H 118 H Calcium Hepatitis A IgM Ab Non-reactive Hep Bs Antigen Non-reactive Hep B Core IgM Ab Non-reactive Hepatitis C Antibody Non-reactive 12/25/18 12/25/18 12/25/18 19:41 19:44 22:03 WBC 12.7 H RBC 2.75 L Hgb 9.0 L Hct 26.7 L MCV 97 H MCH 33 H MCHC 34 RDW 15.4 H Plt Count 289 Sodium 136 L Potassium 4.6 Chloride 95.1 L Carbon Dioxide 30 Anion Gap 16 BUN 25 H Creatinine 5.6 H Estimated GFR 11 BUN/Creatinine Ratio 4 Glucose 104 H POC Glucose 86 Calcium 9.4 Hepatitis A IgM Ab Hep Bs Antigen Hep B Core IgM Ab Hepatitis C Antibody 12/26/18 12/27/18 12/27/18 21:39 06:56 06:56 WBC 11.9 H RBC 2.74 L Hgb 9.0 L Hct 26.8 L MCV 98 H MCH 33 H MCHC 34 RDW 15.2 Plt Count 282 Sodium 136 L Potassium 4.8 Chloride 94.9 L Carbon Dioxide 28 Anion Gap 18 BUN 41 H Creatinine 7.8 H Estimated GFR 7 BUN/Creatinine Ratio 5 Glucose 154 H POC Glucose 57 L Calcium 9.2 Hepatitis A IgM Ab Hep Bs Antigen Hep B Core IgM Ab Hepatitis C Antibody - Imaging and cardiology Abdominal x-ray: report reviewed, image reviewed Assessment and Plan Status post left BKA: Monitor residual limb for any signs of infection are skin breakdown. We'll also monitor for any phantom sensation or phantom pain which the patient denies at this time. Patient does have sharp postsurgical pain which is still present and poorly controlled. Encouraged patient to maintain the stump protector in order to protect the residual limb. We'll work with the patient to develop his ability to improve his independent mobility, range of m otion and strengthening of the residual limb in order to be an acceptable candidate for a prosthesis. Have discussed with the patient the increased level of work that is required to ambulate with a prosthetic limb and will encourage him to continue with maintaining his cardiovascular health. Start vanc for wound infection ppx in residual limb. Diabetes type 1: Maintain the patient on his insulin pump. He is able to maintain his sugars reasonably at home and should be able to continue with that here. We will spot check him with our meter as well to ensure that he is not getting hyper-or hypoglycemic. Hypertension continue medications and adjust as needed for normotension. End-stage renal disease on hemodialysis: Thursday. Medications have been started from previous hospital. Have consulted nephrology for management of end-stage renal disease and hemodialysis. CAD: Continue aspirin, monitor for any further signs of cardiac issues. Patient is s/p CABG Constipation: Problem for the patient at home as well, he states that he does take lactulose typically with every meal. Have order that for him here as well with hold orders. KUB showed significant stool burden. Increased meds over weekend with final success. De-escalate as needed. Z73.6 ADL dysfunction: OT will work on improving ability to perform ADLs (including assistive devices) to increase independence and decrease caregiver burden and improve functional transfers and mobility training. R26.2 Difficulty walking: PT will work on gait training and proper use of assistive devices and advance as appropriate to use of stairs and outside ambulation on uneven surfaces. R26.81 Unsteadiness on feet: PT will work on improving static and dynamic sitting and standing balance as well as proper use of assistive devices to decrease risk of falls. R26.89 Abnormality of gait: PT will work to improve safety and efficiency of gait through neuromotor training and gait training along with instruction on pr oper use of assistive devices. M62.81 Muscle weakness: PT & OT will work on strengthening exercises to improve functional strength including mixture of closed and open kinetic chain exercises. R53.81 Debility: PT & OT will work on improving overall functional status to improve participation with ADLs, mobility and social involvement. R53.83 Fatigue: PT & OT will work on improving endurance through aerobic exercises and therapeutic activity while monitoring patients tolerance for activity and vital signs as needed. DVT ppx: Heparin Pain: Continue physical modalities in therapy and pain medications as needed to achieve functional pain control. Increase pain med frequency Sleep: Monitor and address as needed. Bowel: Monitor and address as needed. Appetite: Monitor and address as needed. Discharge planning: Pending therapy progress and care plan meeting. Will continue discussion with therapy team, SW, patient and family. Restrictions/ Precautions: Falls WB status: FWB Functional Hx: ADLs: Independent Cognition: Independent Mobility: No AD Barriers to Discharge: Decreased mobility and ability to perform self care, balance deficits, weakness, poorly controlled pain, constipation Estimated Length of Stay: 1418 days Discharge Destination: Home with family
--- NOTE | 2018-12-27 11:12 | Progress Note ---
Assessment and Plan - Patient Problems (1) End stage renal disease Current Visit: Yes Status: Acute Plan to address problem: End-stage renal disease dialysis AV fistula We'll initiate dialysis Continue Thursday (2) Hyponatremia Current Visit: Yes Status: Acute Plan to address problem: Hyponatremia : - 2/2 free water excess : - free water restriction - HD. (3) Hypertension Current Visit: Yes Status: Acute Plan to address problem: Hypertension controlled Ensure medications Monitor fingerstick. (4) Diabetes mellitus Current Visit: Yes Status: Acute Qualifiers: Diabetes mellitus complication detail: with other circulatory complications Plan to address problem: Diabetes mellitus type 2 status below knee amputation Subjective Principal diagnosis: Left BKA Interval history: 58-year-old gentleman with metastatic renal disease on hemodialysis Thursday Status post amputation below the knee amputation possible underlying history of diabetes and hypertension patient seen today Denies any orthopnea PND Denies any fevers or chills Objective - Vital Signs Vital signs: Vital Signs - 12hr 12/27/18 12/27/18 12/27/18 05:55 07:51 09:16 Temperature 97.6 F 98.0 F Pulse Rate 93 H 92 H Respiratory 18 18 20 Rate Blood Pressure 133/55 152/69 O2 Sat by Pulse 96 99 Oximetry - General Appearance General appearance: well-developed, well-nourished EENT: ATNC, PERRL Neck: no JVD Respiratory: Present: Clear to Ascultation Cardiology: regular, S1S2 Gastrointestinal: normal, normoactive bowel sounds Neurologic: alert and oriented x3, CN 3-12 intact Psychiatric: mood/affect appropriate - Lab 12/27/18 06:56 12/27/18 06:56 Most recent lab results Calcium 9.2 mg/dL (8.4-10.2) 12/27/18 06:56 - Imaging Chest x-ray: image reviewed (I reviewed chest x-ray without overt edema) Medications & Allergies - Medications Allergies/Adverse Reactions: Allergies morphine Allergy (Verified 12/23/18 14:00) Nausea &VOMITING oxycodone Allergy (Verified 12/23/18 14:00) Nausea & VOMITING Home Medications: Home Medications Medication Instructions Recorded Confirmed Last Taken Type Ascorbic Acid [Vitamin C] 250 mg PO QDAY 12/24/18 12/24/18 Unknown History Bimatoprost [Lumigan] 1 drop OU HS 12/24/18 12/24/18 Unknown History Calcitriol [Rocaltrol] 0.25 mcg PO DAILY 12/24/18 12/24/18 Unknown History ISOSORBIDE MONOnitrate [Imdur ER] 60 mg PO DAILY 12/24/18 12/24/18 Unknown History Lactulose 20 gram PO TID 12/24/18 12/24/18 Unknown History Lanthanum Carbonate [Fosrenol] 1,000 mg PO DAILY 12/24/18 12/24/18 Unknown History Latanoprost 0.005% 1 drop OU HS 12/24/18 12/24/18 Unknown History Losartan [Cozaar] 25 mg PO DAILY 12/24/18 12/24/18 Unknown History Pantoprazole [Protonix] 40 mg PO QDAY 12/24/18 12/24/18 Unknown History Prochlorperazine [Compazine] 1 tab PO TID PRN 12/24/18 12/24/18 Unknown History Rivaroxaban [Xarelto] 2.5 mg PO DAILY 12/24/18 12/24/18 Unknown History Senna 1 tab PO BID 12/24/18 12/24/18 Unknown History Zinc Sulfate 1 cap PO DAILY 12/24/18 12/24/18 Unknown History amLODIPine [Norvasc] 10 mg PO DAILY 12/24/18 12/24/18 Unknown History Active Medications: Generic Name Dose Route Start Last Admin Trade Name Freq PRN Reason Stop Dose Admin Acetaminophen 650 mg 12/23/18 15:34 Tylenol PO Q6H PRN Non Cardiac Pain or Temp>100.5 Amlodipine Besylate 10 mg 12/24/18 08:00 12/27/18 09:21 Norvasc PO Not Given QDAY ESTELA Ascorbic Acid 250 mg 12/24/18 08:00 12/27/18 09:15 Vitamin C PO 250 mg QDAY ESTELA Administration Aspirin 81 mg 12/24/18 08:00 12/27/18 09:15 Halfprin Ec PO 81 mg QDAY ESTELA Administration Bisacodyl 10 mg 12/23/18 15:34 Dulcolax DE QDAY PRN Constipation Calcitriol 0.25 mcg 12/24/18 08:00 12/27/18 09:15 Rocaltrol PO 0.25 mcg QDAY ESTELA Administration Dextrose 50 ml 12/23/18 15:18 D50w (25gm) Syringe IV PRN PRN Hypoglycemia Epoetin Zack 4,000 unit 12/24/18 09:00 12/24/18 18:34 Procrit IV 4,000 unit ALFRED PRN Administration hemodialysis Heparin Sodium (Porcine) 5,000 unit 12/23/18 22:00 12/27/18 05:46 Heparin SUB-Q 5,000 unit Q8HR ESTELA Administration Heparin Sodium (Porcine) 2,000 unit 12/24/18 09:00 12/24/18 15:35 Heparin 10,000 Units/10 Ml IV 2,000 unit ALFRED PRN Administration hemodialysis Heparin Sodium (Porcine) 400 unit 12/24/18 09:00 12/24/18 16:00 Heparin 10,000 Units/10 Ml IV 400 unit ALFRED PRN Administration hemodialysis Hydromorphone HCl 2 mg 12/24/18 12:41 12/27/18 09:16 Dilaudid PO 2 mg Q4H PRN Administration Pain , Severe (7-10) Sodium Chloride 100 mls @ 999 mls/hr 12/24/18 09:00 Nacl 0.9% IV ALFRED PRN Hypotension Isosorbide Mononitrate 60 mg 12/24/18 08:00 12/27/18 09:21 Imdur PO Not Given QDAY [facility] Lactulose 20 gm 12/23/18 20:00 12/27/18 09:15 Cephulac PO Not Given TID [facility] Lanthanum Carbonate 1,000 mg 12/23/18 17:00 12/27/18 09:14 Fosrenol PO 1,000 mg TIDWM ESTELA Administration Miscellaneous Medication 0 pump 12/23/18 22:00 12/27/18 09:17 Nph SUB-Q Not Given ACHS [facility] Ondansetron HCl 8 mg 12/25/18 17:44 Zofran Odt PO Q8H PRN Nausea And Vomiting Pantoprazole Sodium 40 mg 12/24/18 08:00 12/27/18 09:14 Protonix PO 40 mg QDAY ESTELA Administration Paricalcitol 1 mcg 12/24/18 09:00 12/24/18 18:34 Zemplar IV 1 mcg ALFRED PRN Administration hemodialysis Polyethylene Glycol 17 gm 12/23/18 15:34 Miralax 3350 PO QDAY PRN Constipation Promethazine HCl 25 mg 12/25/18 17:52 12/27/18 09:27 Phenergan PO 25 mg Q6H PRN Administration Nausea And Vomiting Senna 8.6 mg 12/25/18 22:00 12/27/18 09:16 Senokot PO Not Given Q12H [facility] Sodium Hypochlorite 1 applic 12/24/18 10:00 12/26/18 13:15 Dakin's Half Strength TP 1 applicatio DAILY ESTELA Administration Zinc Sulfate 220 mg 12/24/18 08:00 12/27/18 09:14 Zinc Sulfate PO 220 mg QDAY ESTELA Administration
[2018-12-27] MEDS: DAKIN'S HALF STRENGTH TP SCH (11:27)
[2018-12-27] MEDS ORDERED: VANCOMYCIN PHARMACY TO DOSE IV SCH (12:00)
[2018-12-27] MEDS: HEPARIN 10,000 UNITS/10 ML IV PRN ×2 (16:08→16:12)
[2018-12-27] MEDS ORDERED: NACL 0.9 (PRIMING MACHINE ONLY DIALYSIS) MC ONE (16:24)
[2018-12-27] MEDS ORDERED: VANCOMYCIN 1,250 MG in NACL 0.9% 250ML 250 ML IV ONE (20:00)
[2018-12-28] MEDS: HEPARIN SUB-Q SCH ×3 (05:15→22:24)
[2018-12-28 06:38] LABS: Hematocrit 28.5 % (35.5-45.6); Hemoglobin 9.6 gm/dl (11.8-15.2); Mean Corpuscular HGB Conc 34 % (32-34); Mean Corpuscular Volume 98 fl (84-94); Platelet Count 289 K/mm3 (140-440); Red Blood Count 2.91 M/mm3 (3.65-5.03); Red Cell Distribution Width 15.5 % (13.2-15.2)
[2018-12-28 07:01] LABS: Calcium 8.9 mg/dL (8.4-10.2)
[2018-12-28] MEDS: [UNRECOGNIZED DRUG - OTHER] SUB-Q SCH ×4 (07:49→22:27)
[2018-12-28] MEDS: ZINC SULFATE PO SCH (08:37)
[2018-12-28] MEDS: VITAMIN C PO SCH (08:38)
[2018-12-28] MEDS: HALFPRIN EC PO SCH (08:38)
[2018-12-28] MEDS: PROTONIX PO SCH (08:38)
[2018-12-28] MEDS: ROCALTROL PO SCH (08:39)
[2018-12-28] MEDS: NORVASC PO SCH (08:39)
[2018-12-28] MEDS: CEPHULAC PO SCH ×3 (08:44→22:26)
[2018-12-28] MEDS: IMDUR PO SCH (08:44)
[2018-12-28] MEDS: DILAUDID PO PRN ×2 (08:45→22:23)
[2018-12-28] MEDS: FOSRENOL PO SCH ×3 (08:45→17:05)
[2018-12-28] MEDS: SENOKOT PO SCH ×2 (09:09→22:23)
--- NOTE | 2018-12-28 09:37 | Progress Note ---
Subjective Date of service: 12/28/18 Principal diagnosis: Left BKA Interval history: 58-year-old gentleman with a recent history of left great toe amputation was discharged home with IV antibiotics. Developed worsening infection and upon evaluation at the ER was admitted for further treatment of the infection with more antibiotics. Vascular surgery was consulted and after further evaluation recommended BKA due to gangrenous changes and poor vascular supply. He was evaluated by therapy and found to need acute inpatient rehabilitation in order to facilitate a safe discharge home with the best functional improvement possible. He will need a follow-up appointment with his vascular surgeon in the next week or so. Pain is poorly controlled and the patient states that he was on IV pain medications up until time of discharge. Informed him that he will be on oral pain medications here and that he should've been transitioned to oral pain medications before he was transferred for rehabilitation. We'll monitor his pain level and treat appropriately he is currently taking Dilaudid by mouth. Patient also states that he is having significant nausea without vomiting. In going over his medications it also appears that he has chronic constipation at home for which he does take lactulose on a daily basis with each meal. After the patient was cleared medically he was transferred for further rehabilitation. Patient is participating in therapy and making reasonable progress. Taking rest breaks as needed. +BM. Feels much better after several BMs. Pain seems a little better controlled, he still describes the pain as sharp in nature with an occasional feeling of an electrical shock, improved with medication. Denies palpitations, dyspnea, cough, N/V, weakness, or joint pain. Pt denied phantom pain but said he had some with therapy. WIll monitor, may need low dose gabapentin. Tolerated Vanc, WBC improved, afebrile, no other signs of infection. Volunteered to allow nursing students to examine his fistula and was very interactive with them. All records, vitals, labs and medications were reviewed. No other issues per patient, nursing or therapy. Objective - Exam Narrative Exam: MUSCULOSKELETAL SPECIALTY EXAM CONSTITUTIONAL: Well developed, well nourished, appropriately groomed EENT: EOMI. Hearing intact to soft voice RESPIRATORY: Clear to auscultation bilaterally, no increased work of breathing CARDIOVASCULAR: Regular Rate/ Rhythm, no swelling, edema or tenderness in BUE or BLE. All e xtremities warm. GI: + bowel sounds, soft, NTTP, nondistended. INTEGUMENTARY: Normal, no lesion, rash, masses or bruising noted in extremities except for left BKA which has sutures and pao in place. MUSCULOSKELETAL: BUE and BLE normal without defect, crepitus, subluxation, effusion, arthritic changes or TTP except for left BKA. BUE 4+/5, good ROM, with normal tone. RLE 4+/5 good ROM, with normal tone. LLE is reduced range of motion and strength primarily due to pain. NEURO: CN 2-12 grossly intact. Sensation intact in all extremities. No tremor noted in 4 extremities. POSTURE and GAIT: Sitting posture good. Balance appears reasonable. Gait with RW and hops progressing. PSYCH: Alert, oriented x3, affect appears normal. Insight appears intact. - Constitutional Vitals: Vital Signs - 12hr 12/28/18 12/28/18 12/28/18 04:44 08:00 08:39 Temperature 36.7 C 36.8 C Pulse Rate 92 H 81 93 H Respiratory 19 20 Rate Blood Pressure 157/64 Blood Pressure 165/53 143/55 [Left] O2 Sat by Pulse 97 98 Oximetry 12/28/18 12/28/18 08:44 08:45 Temperature Pulse Rate 93 H Respiratory 20 Rate Blood Pressure 157/64 Blood Pressure [Left] O2 Sat by Pulse Oximetry - Allied health notes Allied health notes reviewed: nursing, PT, OT FIMS assessment as documented by PT/OT/ST: Grooming Patient cleans teeth/dentures: Yes Patient brooks/brushes hair: Yes Patient washes, rinses and Yes dries face: Patient washes, rinses and Yes dries hands: Patient shaves: Yes Patient applies make-up: No Patient performs (no make-up/ 4/4 (100%) shaving): Patient performs (w/ make-up/ 5/5 (100%) shaving): Grooming FIM Score 5. Supervision (Platinum applies toothpaste or opens containers.) Toileting Toileting Device Commode over Toilet Patient able to: Adjust clothes before,Clean self,Adjust clothes after Patient able to perform: 3/3 (100%) Toileting FIM Score 5. Supv./Set-Up (Needs stand-by, set-up, applying prosth/orth.) Social interaction/Memory/Problem solving Social Interaction FIM Score 7. Complete Lander (Interacts appropriately. Controls temper.) Memory FIM Score 6. Modified Lander(Mild difficulty remembering people/routines.) Problem Solving FIM Score 5. Supervision (Needs cueing <10% to solve routine problems.) Transfers Mode of Locomotion: Wheelchair Bed/Chair/Wheelchair Transfers 5. Supervision (Needs supv. or set-up for FIM Score sliding board, foot rests.) Toilet Transfers FIM Score 5. Supervision (Needs supervision or cueing.) Patient transferred to: Shower Shower Transfers FIM Score 4. Minimal Assistance (Patient = 75% or more. Needs touching.) Locomotion- Stairs Device used on Stairs Handrail/s Number of Stairs Ascended/ 2 Descended Patient used handrail/support: Yes Stairs FIM Score 1. Total Assistance (Pt. < 25%, 2 person assist, or <4 stairs.) Locomotion- walk/wheelchair Most Frequent Mode of Wheelchair Locomotion: Ambulation Distance 100 Walking FIM Score 2. Maximal Assistance (Patient = 25% or more. Minimum of 50 ft.) Wheelchair Propulsion Distance 250 Wheelchair FIM Score 5. Supervision (Minimum 150 ft. supv./cues or 50 ft. independently.) Eating Eating FIM Score 6. Modified Lander (Special consistency or uses device.) Dressing-Upper body Patient retrieves clothing Yes items: Patient applies/removes UE No prosthesis or orthosis: Upper Body Dressing FIM Score 5. Supv./Set-Up (Platinum sets out clothes or applies pros./orth.) Dressing-lower body Patient retrieves clothing Yes items: Patient applies/removes LE Yes prosthesis or orthosis: Lower Body Dressing FIM Score 5. Supv./Set-Up (Platinum sets out clothes or applies pros./orth.) - Labs CBC & Chem 7: 12/28/18 06:24 12/28/18 06:24 Labs: Laboratory Results - last 72 hr 12/25/18 12/25/18 12/25/18 19:41 19:44 22:03 WBC 12.7 H RBC 2.75 L Hgb 9.0 L Hct 26.7 L MCV 97 H MCH 33 H MCHC 34 RDW 15.4 H Plt Count 289 Sodium 136 L Potassium 4.6 Chloride 95.1 L Carbon Dioxide 30 Anion Gap 16 BUN 25 H Creatinine 5.6 H Estimated GFR 11 BUN/Creatinine Ratio 4 Glucose 104 H POC Glucose 86 Calcium 9.4 12/26/18 12/27/18 12/27/18 21:39 06:56 06:56 WBC 11.9 H RBC 2.74 L Hgb 9.0 L Hct 26.8 L MCV 98 H MCH 33 H MCHC 34 RDW 15.2 Plt Count 282 Sodium 136 L Potassium 4.8 Chloride 94.9 L Carbon Dioxide 28 Anion Gap 18 BUN 41 H Creatinine 7.8 H Estimated GFR 7 BUN/Creatinine Ratio 5 Glucose 154 H POC Glucose 57 L Calcium 9.2 12/28/18 12/28/18 12/28/18 06:24 06:24 07:48 WBC 9.0 RBC 2.91 L Hgb 9.6 L Hct 28.5 L MCV 98 H MCH 33 H MCHC 34 RDW 15.5 H Plt Count 289 Sodium 138 Potassium 4.1 Chloride 97.6 L Carbon Dioxide 28 Anion Gap 17 BUN 26 H Creatinine 4.8 H Estimated GFR 13 BUN/Creatinine Ratio 5 Glucose 201 H POC Glucose 259 H Calcium 8.9 Assessment and Plan Status post left BKA: Monitor residual limb for any signs of infection are skin breakdown. We'll also monitor for any phantom sensation or phantom pain which the patient denies at this time. Patient does have sharp postsurgical pain which is still present and poorly controlled. Encouraged patient to maintain the stump protector in order to protect the residual limb. We'll work with the patient to develop his ability to improve his independent mobility, range of motion and strengthening of the residual limb in order to be an acceptable candidate for a prosthesis. Have discussed with the patient the increased level of work that is required to ambulate with a prosthetic limb and will encourage him to continue with maintaining his cardiovascular health. Start vanc for wound infection ppx in residual limb. Diabetes type 1: Maintain the patient on his insulin pump. He is able to maintain his sugars reasonably at home and should be able to continue with that here. We will spot check him with our meter as well to ensure that he is not getting hyper-or hypoglycemic. Hypertension continue medications and adjust as needed for normotension. Slightly elevated earlier today, monitor End-stage renal disease on hemodialysis: Thursday. Medications have been started from previous hospital. Have consulted nephrology for manage ment of end-stage renal disease and hemodialysis. CAD: Continue aspirin, monitor for any further signs of cardiac issues. Patient is s/p CABG Constipation: Problem for the patient at home as well, he states that he does take lactulose typically with every meal. Have order that for him here as well with hold orders. KUB showed significant stool burden. Increased meds over weekend with final success. De-escalate as needed. Z73.6 ADL dysfunction: OT will work on improving ability to perform ADLs (including assistive devices) to increase independence and decrease caregiver burden and improve functional transfers and mobility training. R26.2 Difficulty walking: PT will work on gait training and proper use of assistive devices and advance as appropriate to use of stairs and outside ambul ation on uneven surfaces. R26.81 Unsteadiness on feet: PT will work on improving static and dynamic sitting and standing balance as well as proper use of assistive devices to decrease risk of falls. R26.89 Abnormality of gait: PT will work to improve safety and efficiency of gait through neuromotor training and gait training along with instruction on proper use of assistive devices. M62.81 Muscle weakness: PT & OT will work on strengthening exercises to improve functional strength including mixture of closed and open kinetic chain exercises. R53.81 Debility: PT & OT will work on improving overall functional status to improve participation with ADLs, mobility and social involvement. R53.83 Fatigue: PT & OT will work on improving endurance through aerobic exercises and therapeutic activity while monitoring patients tolerance for activity and vital signs as needed. DVT ppx: Heparin Pain: Continue physical modalities in therapy and pain medications as needed to achieve functional pain control. Increase pain med frequency Sleep: Monitor and address as needed. Bowel: Monitor and address as needed. Appetite: Monitor and address as needed. Discharge planning: Pending therapy progress and care plan meeting. Will continue discussion with therapy team, SW, patient and family. Restrictions/ Precautions: Falls WB status: FWB Functional Hx: ADLs: Independent Cognition: Independent Mobility: No AD Barriers to Discharge: Decreased mobility and ability to perform self care, balance deficits, weakness, poorly controlled pain, constipation Estimated Length of Stay: 1418 days Discharge Destination: Home with family
[2018-12-28] MEDS: DAKIN'S HALF STRENGTH TP SCH (14:00)
--- NOTE | 2018-12-28 15:42 | Progress Note ---
Assessment and Plan - Patient Problems (1) End stage renal disease Current Visit: Yes Status: Acute Plan to address problem: End-stage renal disease dialysis AV fistula We'll initiate dialysis Continue Thursday (2) Hyponatremia Current Visit: Yes Status: Acute Plan to address problem: Hyponatremia : - 2/2 free water excess : - free water restriction - continue HD. (3) Hypertension Current Visit: Yes Status: Acute Plan to address problem: Hypertension controlled Ensure medications Monitor blood pressure. (4) Diabetes mellitus Current Visit: Yes Status: Acute Qualifiers: Diabetes mellitus complication detail: with other circulatory complications Plan to address problem: Diabetes mellitus type 2 status below knee amputation ensure medicatiosn Monitor fingerstick. Subjective Principal diagnosis: Left BKA Interval history: 58-year-old gentleman with metastatic renal disease on hemodialysis Thursday Status post amputation below the knee amputation possible underlying history of diabetes and hypertension He is undergoing rehab. Denies any orthopnea PND Denies any fevers or chills Objective - Vital Signs Vital signs: Vital Signs - 12hr 12/28/18 12/28/18 12/28/18 04:44 08:00 08:39 Temperature 98.1 F 98.2 F Pulse Rate 92 H 81 93 H Respiratory 19 20 Rate Blood Pressure 157/64 Blood Pressure 165/53 143/55 [Left] O2 Sat by Pulse 97 98 Oximetry 12/28/18 12/28/18 08:44 08:45 Temperature Pulse Rate 93 H Respiratory 20 Rate Blood Pressure 157/64 Blood Pressure [Left] O2 Sat by Pulse Oximetry - General Appearance General appearance: well-developed, well-nourished EENT: ATNC, PERRL, mucous membranes moist Neck: no JVD Respiratory: Present: Clear to Ascultation Cardiology: regular, S1S2 Gastrointestinal: normal, normoactive bowel sounds Integumentary: no rash Neurologic: alert and oriented x3, CN 3-12 intact Psychiatric: mood/affect appropriate - Lab 12/28/18 06:24 12/28/18 06:24 Most recent lab results Calcium 8.9 mg/dL (8.4-10.2) 12/28/18 06:24 - Imaging Other: image reviewed (I reviewed abdominal x ray with evidence of constipation ) Medications & Allergies - Medications Allergies/Adverse Reactions: Allergies morphine Allergy (Verified 12/23/18 14:00) Nausea &VOMITING oxycodone Allergy (Verified 12/23/18 14:00) Nausea & VOMITING Home Medications: Home Medications Medication Instructions Recorded Confirmed Last Taken Type Ascorbic Acid [Vitamin C] 250 mg PO QDAY 12/24/18 12/24/18 Unknown History Bimatoprost [Lumigan] 1 drop OU HS 12/24/18 12/24/18 Unknown History Calcitriol [Rocaltrol] 0.25 mcg PO DAILY 12/24/18 12/24/18 Unknown History ISOSORBIDE MONOnitrate [Imdur ER] 60 mg PO DAILY 12/24/18 12/24/18 Unknown History Lactulose 20 gram PO TID 12/24/18 12/24/18 Unknown History Lanthanum Carbonate [Fosrenol] 1,000 mg PO DAILY 12/24/18 12/24/18 Unknown History Latanoprost 0.005% 1 drop OU HS 12/24/18 12/24/18 Unknown History Losartan [Cozaar] 25 mg PO DAILY 12/24/18 12/24/18 Unknown History Pantoprazole [Protonix] 40 mg PO QDAY 12/24/18 12/24/18 Unknown History Prochlorperazine [Compazine] 1 tab PO TID PRN 12/24/18 12/24/18 Unknown History Rivaroxaban [Xarelto] 2.5 mg PO DAILY 12/24/18 12/24/18 Unknown History Senna 1 tab PO BID 12/24/18 12/24/18 Unknown History Zinc Sulfate 1 cap PO DAILY 12/24/18 12/24/18 Unknown History amLODIPine [Norvasc] 10 mg PO DAILY 12/24/18 12/24/18 Unknown History Active Medications: Generic Name Dose Route Start Last Admin Trade Name Freq PRN Reason Stop Dose Admin Acetaminophen 650 mg 12/23/18 15:34 Tylenol PO Q6H PRN Non Cardiac Pain or Temp>100.5 Amlodipine Besylate 10 mg 12/24/18 08:00 12/28/18 08:39 Norvasc PO 10 mg QDAY ESTELA Administration Ascorbic Acid 250 mg 12/24/18 08:00 12/28/18 08:38 Vitamin C PO 250 mg QDAY ESTELA Administration Aspirin 81 mg 12/24/18 08:00 12/28/18 08:38 Halfprin Ec PO 81 mg QDAY ESTELA Administration Bisacodyl 10 mg 12/23/18 15:34 Dulcolax [place] QDAY PRN Constipation Calcitriol 0.25 mcg 12/24/18 08:00 12/28/18 08:39 Rocaltrol PO 0.25 mcg QDAY ESTELA Administration Dextrose 50 ml 12/23/18 15:18 D50w (25gm) Syringe IV PRN PRN Hypoglycemia Epoetin Zack 4,000 unit 12/24/18 09:00 12/24/18 18:34 Procrit IV 4,000 unit ALFRED PRN Administration hemodialysis Heparin Sodium (Porcine) 5,000 unit 12/23/18 22:00 12/28/18 14:12 Heparin SUB-Q 5,000 unit Q8HR ESTELA Administration Heparin Sodium (Porcine) 2,000 unit 12/24/18 09:00 12/27/18 16:08 Heparin 10,000 Units/10 Ml IV 2,000 unit ALFRED PRN Administration hemodialysis Heparin Sodium (Porcine) 400 unit 12/24/18 09:00 12/27/18 16:12 Heparin 10,000 Units/10 Ml IV 400 unit ALFRED PRN Administration hemodialysis Hydromorphone HCl 2 mg 12/24/18 12:41 12/28/18 08:45 Dilaudid PO 2 mg Q4H PRN Administration Pain , Severe (7-10) Sodium Chloride 100 mls @ 999 mls/hr 12/24/18 09:00 Nacl 0.9% IV ALFRED PRN Hypotension Vancomycin HCl 1 gm in 250 mls @ 167.007 mls/hr 12/29/18 18:00 Vancomycin/Ns 1 Gm/250 Ml IV 01/10/19 19:30 [email or web address] [facility] Isosorbide Mononitrate 60 mg 12/24/18 08:00 12/28/18 08:44 Imdur PO Not Given QDAY [facility] Lactulose 20 gm 12/23/18 20:00 12/28/18 14:00 Cephulac PO Not Given TID [facility] Lanthanum Carbonate 1,000 mg 12/23/18 17:00 12/28/18 12:07 Fosrenol PO 1,000 mg TIDWM ESTELA Administration Miscellaneous Medication 0 pump 12/23/18 22:00 12/28/18 12:09 Nph SUB-Q Not Given ACHS ESTELA Ondansetron HCl 8 mg 12/25/18 17:44 Zofran Odt PO Q8H PRN Nausea And Vomiting Pantoprazole Sodium 40 mg 12/24/18 08:00 12/28/18 08:38 Protonix PO 40 mg QDAY ESTELA Administration Paricalcitol 1 mcg 12/24/18 09:00 12/24/18 18:34 Zemplar IV 1 mcg ALFRED PRN Administration hemodialysis Polyethylene Glycol 17 gm 12/23/18 15:34 Miralax 3350 PO QDAY PRN Constipation Promethazine HCl 25 mg 12/25/18 17:52 12/27/18 09:27 Phenergan PO 25 mg Q6H PRN Administration Nausea And Vomiting Senna 8.6 mg 12/25/18 22:00 12/28/18 09:09 Senokot PO 8.6 mg Q12H ESTELA Administration Zinc Sulfate 220 mg 12/24/18 08:00 12/28/18 08:37 Zinc Sulfate PO 220 mg QDAY ESTELA Administration
[2018-12-29] MEDS: HEPARIN SUB-Q SCH ×3 (05:24→23:55)
[2018-12-29 07:16] LABS: Hematocrit 27.7 % (35.5-45.6); Hemoglobin 9.6 gm/dl (11.8-15.2); Mean Corpuscular HGB Conc 35 % (32-34); Mean Corpuscular Volume 98 fl (84-94); Platelet Count 298 K/mm3 (140-440); Red Blood Count 2.84 M/mm3 (3.65-5.03); Red Cell Distribution Width 15.4 % (13.2-15.2)
[2018-12-29 07:28] LABS: Calcium 9.5 mg/dL (8.4-10.2)
[2018-12-29] MEDS: [UNRECOGNIZED DRUG - OTHER] SUB-Q SCH ×4 (07:30→23:53)
--- NOTE | 2018-12-29 07:55 | Progress Note ---
Subjective Date of service: 12/29/18 Principal diagnosis: Left BKA Interval history: 58-year-old gentleman with a recent history of left great toe amputation was discharged home with IV antibiotics. Developed worsening infection and upon evaluation at the ER was admitted for further treatment of the infection with more antibiotics. Vascular surgery was consulted and after further evaluation recommended BKA due to gangrenous changes and poor vascular supply. He was evaluated by therapy and found to need acute inpatient rehabilitation in order to facilitate a safe discharge home with the best functional improvement possible. He will need a follow-up appointment with his vascular surgeon in the next week or so. Pain is poorly controlled and the patient states that he was on IV pain medications up until time of discharge. Informed him that he will be on oral pain medications here and that he should've been transitioned to oral pain medications before he was transferred for rehabilitation. We'll monitor his pain level and treat appropriately he is currently taking Dilaudid by mouth. Patient also states that he is having significant nausea without vomiting. In going over his medications it also appears that he has chronic constipation at home for which he does take lactulose on a daily basis with each meal. After the patient was cleared medically he was transferred for further rehabilitation. Patient is participating in therapy and making reasonable progress. Taking rest breaks as needed. Had an episode of N/V this AM, small amount, no distress. If it continues will obtain another KUB. Had several large BMs since previous KUB. +BM. Pain better controlled, he still describes the pain as sharp in nature with an occasional feeling of an electrical shock, improved with medication. Denies palpitations, dyspnea, cough, weakness, or joint pain. Cont to monitor for phantom pain. Tolerating Vanc, WBC improved, afebrile, no other signs of infection. All records, vitals, labs and medications were reviewed. No other issues per patient, nursing or therapy. Objective - Exam Narrative Exam: MUSCULOSKELETAL SPECIALTY EXAM CONSTITUTIONAL: Well developed, well nourished, appropriately groomed EENT: EOMI. Hearing intact to soft voice RESPIRATORY: Clear to auscultation bilaterally, no increased work of breathing CARDIOVASCULAR: Regular Rate/ Rhythm, no swelling, edema or tenderness in BUE or BLE. All extremities warm. GI: + bowel sounds, soft, NTTP, nondistended. INTEGUMENTARY: Normal, no lesion, rash, masses or bruising noted in extremities except for left BKA which has sutures and pao in place. MUSCULOSKELETAL: BUE and BLE normal without defect, crepitus, subluxation, effusion, arthritic changes or TTP except for left BKA. BUE 4+/5, good ROM, with normal tone. RLE 4+/5 good ROM, with normal tone. LLE is reduced range of motion and strength primarily due to pain. NEURO: CN 2-12 grossly intact. Sensation intact in all extremities. No tremor noted in 4 extremities. POSTURE and GAIT: Sitting posture good. Balance appears reasonable. Gait with RW and hops progressing. PSYCH: Alert, oriented x3, affect appears normal. Insight appears intact. - Constitutional Vitals: Vital Signs - 12hr 12/29/18 12/29/18 12/29/18 04:46 07:30 07:45 Temperature 36.6 C 36.1 C L 36.6 C Pulse Rate 89 80 Respiratory 18 20 Rate Blood Pressure 145/59 Blood Pressure 131/54 [Left] O2 Sat by Pulse 99 98 Oximetry - Allied health notes Allied health notes reviewed: nursing, PT, OT FIMS assessment as documented by PT/OT/ST: Grooming Patient cleans teeth/dentures: Yes Patient brooks/brushes hair: Yes Patient washes, rinses and Yes dries face: Patient washes, rinses and Yes dries hands: Patient shaves: Yes Patient applies make-up: No Patient performs (no make-up/ /4 (100%) shaving): Patient performs (w/ make-up/ 5/5 (100%) shaving): Grooming FIM Score 5. Supervision ([place] applies toothpaste or opens containers.) Toileting Toileting Device Commode over Toilet Patient able to: Adjust clothes before,Clean self,Adjust clothes after Patient able to perform: 3/3 (100%) Toileting FIM Score 5. Supv./Set-Up (Needs stand-by, set-up, applying prosth/orth.) Social interaction/Memory/Problem solving Social Interaction FIM Score 7. Complete [place] (Interacts appropriately. Controls temper.) Memory FIM Score 6. Modified [place](Mild difficulty remembering people/routines.) Problem Solving FIM Score 5. Supervision (Needs cueing <10% to solve routine problems.) Transfers Mode of Locomotion: Wheelchair Bed/Chair/Wheelchair Transfers 5. Supervision (Needs supv. or set-up for FIM Score sliding board, foot rests.) Toilet Transfers FIM Score 5. Supervision (Needs supervision or cueing.) Patient transferred to: Shower Shower Transfers FIM Score 4. Minimal Assistance (Patient = 75% or more. Needs touching.) Locomotion- Stairs Device used on Stairs Handrail/s Number of Stairs Ascended/ 2 Descended Patient used handrail/support: Yes Stairs FIM Score 1. Total Assistance (Pt. < 25%, 2 person assist, or <4 stairs.) Locomotion- walk/wheelchair Most Frequent Mode of Wheelchair Locomotion: Ambulation Distance 100 Walking FIM Score 2. Maximal Assistance (Patient = 25% or more. Minimum of 50 ft.) Wheelchair Propulsion Distance 250 Wheelchair FIM Score 5. Supervision (Minimum 150 ft. supv./cues or 50 ft. independently.) Eating Eating FIM Score 6. Modified [place] (Special consistency or uses device.) Dressing-Upper body Patient retrieves clothing Yes items: Patient applies/removes UE No prosthesis or orthosis: Upper Body Dressing FIM Score 5. Supv./Set-Up ([place] sets out clothes or applies pros./orth.) Dressing-lower body Patient retrieves clothing Yes items: Patient applies/removes LE Yes prosthesis or orthosis: Lower Body Dressing FIM Score 5. Supv./Set-Up ([place] sets out clothes or applies pros./orth.) - Labs CBC & Chem 7: 12/29/18 07:10 12/29/18 07:10 Labs: Laboratory Results - last 72 hr 12/26/18 12/27/18 12/27/18 21:39 06:56 06:56 WBC 11.9 H RBC 2.74 L Hgb 9.0 L Hct 26.8 L MCV 98 H MCH 33 H MCHC 34 RDW 15.2 Plt Count 282 Sodium 136 L Potassium 4.8 Chloride 94.9 L Carbon Dioxide 28 Anion Gap 18 BUN 41 H Creatinine 7.8 H Estimated GFR 7 BUN/Creatinine Ratio 5 Glucose 154 H POC Glucose 57 L Calcium 9.2 12/28/18 12/28/18 12/28/18 06:24 06:24 07:48 WBC 9.0 RBC 2.91 L Hgb 9.6 L Hct 28.5 L MCV 98 H MCH 33 H MCHC 34 RDW 15.5 H Plt Count 289 Sodium 138 Potassium 4.1 Chloride 97.6 L Carbon Dioxide 28 Anion Gap 17 BUN 26 H Creatinine 4.8 H Estimated GFR 13 BUN/Creatinine Ratio 5 Glucose 201 H POC Glucose 259 H Calcium 8.9 12/28/18 12/28/18 12/29/18 11:26 20:49 07:10 WBC 9.9 RBC 2.84 L Hgb 9.6 L Hct 27.7 L MCV 98 H MCH 34 H MCHC 35 H RDW 15.4 H Plt Count 298 Sodium Potassium Chloride Carbon Dioxide Anion Gap BUN Creatinine Estimated GFR BUN/Creatinine Ratio Glucose POC Glucose 120 H 204 H Calcium 12/29/18 07:10 WBC RBC Hgb Hct MCV MCH MCHC RDW Plt Count Sodium 136 L Potassium 4.3 Chloride 96.2 L Carbon Dioxide 31 H Anion Gap 13 BUN 39 H Creatinine 6.2 H Estimated GFR 9 BUN/Creatinine Ratio 6 Glucose 126 H POC Glucose Calcium 9.5 Assessment and Plan Status post left BKA: Monitor residual limb for any signs of infection are skin breakdown. We'll also monitor for any phantom sensation or phantom pain which the patient denies at this time. Patient does have sharp postsurgical pain which is still present and poorly controlled. Encouraged patient to maintain the stump protector in order to protect the residual limb. We'll work with the patient to develop his ability to improve his independent mobility, range of motion and strengthening of the residual limb in order to be an acceptable candidate for a prosthesis. Have discussed with the patient the increased level of work that is required to ambulate with a prosthetic limb and will encourage him to continue with maintaining his cardiovascular health. Start vanc for wound infection ppx in residual limb. Diabetes type 1: Maintain the patient on his insulin pump. He is able to maintain his sugars reasonably at home and should be able to continue with that here. We will spot check him with our meter as well to ensure that he is not ge tting hyper-or hypoglycemic. Hypertension continue medications and adjust as needed for normotension. Slightly elevated in mornings, monitor End-stage renal disease on hemodialysis: Thursday. Medications have been started from previous hospital. Have consulted nephrology for prabhjot gement of end-stage renal disease and hemodialysis. CAD: Continue aspirin, monitor for any further signs of cardiac issues. Patient is s/p CABG Constipation: Problem for the patient at home as well, he states that he does take lactulose typically with every meal. Have order that for him here as well with hold orders. KUB showed significant stool burden. Increased meds over weekend with final success. De-escalate as needed. Z73.6 ADL dysfunction: OT will work on improving ability to perform ADLs (including assistive devices) to increase independence and decrease caregiver burden and improve functional transfers and mobility training. R26.2 Difficulty walking: PT will work on gait training and proper use of assistive devices and advance as appropriate to use of stairs and outside amb ulation on uneven surfaces. R26.81 Unsteadiness on feet: PT will work on improving static and dynamic sitting and standing balance as well as proper use of assistive devices to decrease risk of falls. R26.89 Abnormality of gait: PT will work to improve safety and efficiency of gait through neuromotor training and gait training along with instruction on proper use of assistive devices. M62.81 Muscle weakness: PT & OT will work on strengthening exercises to improve functional strength including mixture of closed and open kinetic chain exercises. R53.81 Debility: PT & OT will work on improving overall functional status to improve participation with ADLs, mobility and social involvement. R53.83 Fatigue: PT & OT will work on improving endurance through aerobic exercises and therapeutic activity while monitoring patients tolerance for activity and vital signs as needed. DVT ppx: Heparin Pain: Continue physical modalities in therapy and pain medications as needed to achieve functional pain control. Increase pain med frequency Sleep: Monitor and address as needed. Bowel: Monitor and address as needed. Appetite: Monitor and address as needed. Discharge planning: Pending therapy progress and care plan meeting. Will continue discussion with therapy team, SW, patient and family. Restrictions/ Precautions: Falls WB status: FWB Functional Hx: ADLs: Independent Cognition: Independent Mobility: No AD Barriers to Discharge: Decreased mobility and ability to perform self care, bal ance deficits, weakness, poorly controlled pain, constipation Estimated Length of Stay: 1418 days Discharge Destination: Home with family
[2018-12-29] MEDS: VITAMIN C PO SCH (08:24)
[2018-12-29] MEDS: PROTONIX PO SCH (08:25)
[2018-12-29] MEDS: HALFPRIN EC PO SCH (08:25)
[2018-12-29] MEDS: ROCALTROL PO SCH (08:25)
[2018-12-29] MEDS: ZINC SULFATE PO SCH (08:25)
[2018-12-29] MEDS: FOSRENOL PO SCH ×3 (08:26→18:53)
[2018-12-29] MEDS: NORVASC PO SCH (08:26)
[2018-12-29] MEDS: IMDUR PO SCH (08:29)
[2018-12-29] MEDS: CEPHULAC PO SCH ×3 (08:30→23:37)
[2018-12-29] MEDS: SENOKOT PO SCH ×3 (08:36→23:50)
--- NOTE | 2018-12-29 14:33 | Progress Note ---
Assessment and Plan - Patient Problems (1) End stage renal disease Current Visit: Yes Status: Acute Plan to address problem: End-stage renal disease dialysis AV fistula We'll initiate dialysis Continue Thursday (2) Hyponatremia Current Visit: Yes Status: Acute Plan to address problem: Hyponatremia : - 2/2 free water excess : - free water restriction - continue HD. (3) Hypertension Current Visit: Yes Status: Acute Qualifiers: Hypertension type: essential hypertension Qualified Code(s): I10 - Essential (primary) hypertension Plan to address problem: Hypertension controlled Ensure medications Monitor blood pressure. (4) Diabetes mellitus Current Visit: Yes Status: Acute Qualifiers: Diabetes mellitus complication detail: with other circulatory complications Plan to address problem: Diabetes mellitus type 2 status below knee amputation ensure medicatiosn Monitor fingerstick. Subjective Principal diagnosis: Left BKA Interval history: 58-year-old gentleman with metastatic renal disease on hemodialysis Thursday Status post amputation below the knee amputation possible underlying history of diabetes and hypertension He is undergoing rehab. Denies any orthopnea PND Denies any fevers or chills plan for dialysis MWF. Objective - Vital Signs Vital signs: Vital Signs - 12hr 12/29/18 12/29/18 12/29/18 04:46 07:30 07:45 Temperature 97.9 F 97 F L 97.9 F Pulse Rate 89 80 Respiratory 18 20 Rate Blood Pressure 145/59 Blood Pressure 131/54 [Left] O2 Sat by Pulse 99 98 Oximetry 12/29/18 12/29/18 12/29/18 08:26 08:29 11:00 Temperature 98.3 F Pulse Rate 90 90 79 Respiratory 20 Rate Blood Pressure 154/53 154/53 120/48 Blood Pressure [Left] O2 Sat by Pulse 97 Oximetry - General Appearance General appearance: well-developed, well-nourished, appears stated age EENT: ATNC, PERRL, mucous membranes moist Neck: no JVD Respiratory: Present: Clear to Ascultation Cardiology: regular, S1S2 Gastrointestinal: normal, normoactive bowel sounds Integumentary: no rash Neurologic: alert and oriented x3, CN 3-12 intact Musculoskeletal: other (left BKA. ) Psychiatric: mood/affect appropriate - Lab 12/29/18 07:10 12/29/18 07:10 Most recent lab results Calcium 9.5 mg/dL (8.4-10.2) 12/29/18 07:10 Medications & Allergies - Medications Allergies/Adverse Reactions: Allergies morphine Allergy (Verified 12/23/18 14:00) Nausea &VOMITING oxycodone Allergy (Verified 12/23/18 14:00) Nausea & VOMITING Home Medications: Home Medications Medication Instructions Recorded Confirmed Last Taken Type Ascorbic Acid [Vitamin C] 250 mg PO QDAY 12/24/18 12/24/18 Unknown History Bimatoprost [Lumigan] 1 drop OU HS 12/24/18 12/24/18 Unknown History Calcitriol [Rocaltrol] 0.25 mcg PO DAILY 12/24/18 12/24/18 Unknown History ISOSORBIDE MONOnitrate [Imdur ER] 60 mg PO DAILY 12/24/18 12/24/18 Unknown History Lactulose 20 gram PO TID 12/24/18 12/24/18 Unknown History Lanthanum Carbonate [Fosrenol] 1,000 mg PO DAILY 12/24/18 12/24/18 Unknown History Latanoprost 0.005% 1 drop OU HS 12/24/18 12/24/18 Unknown History Losartan [Cozaar] 25 mg PO DAILY 12/24/18 12/24/18 Unknown History Pantoprazole [Protonix] 40 mg PO QDAY 12/24/18 12/24/18 Unknown History Prochlorperazine [Compazine] 1 tab PO TID PRN 12/24/18 12/24/18 Unknown History Rivaroxaban [Xarelto] 2.5 mg PO DAILY 12/24/18 12/24/18 Unknown History Senna 1 tab PO BID 12/24/18 12/24/18 Unknown History Zinc Sulfate 1 cap PO DAILY 12/24/18 12/24/18 Unknown History amLODIPine [Norvasc] 10 mg PO DAILY 12/24/18 12/24/18 Unknown History Active Medications: Generic Name Dose Route Start Last Admin Trade Name Freq PRN Reason Stop Dose Admin Acetaminophen 650 mg 12/23/18 15:34 Tylenol PO Q6H PRN Non Cardiac Pain or Temp>100.5 Amlodipine Besylate 10 mg 12/24/18 08:00 12/29/18 08:26 Norvasc PO 10 mg QDAY ESTELA Administration Ascorbic Acid 250 mg 12/24/18 08:00 12/29/18 08:24 Vitamin C PO 250 mg QDAY ESTELA Administration Aspirin 81 mg 12/24/18 08:00 12/29/18 08:25 Halfprin Ec PO 81 mg QDAY ESTELA Administration Bisacodyl 10 mg 12/23/18 15:34 Dulcolax [place] QDAY PRN Constipation Calcitriol 0.25 mcg 12/24/18 08:00 12/29/18 08:25 Rocaltrol PO 0.25 mcg QDAY ESTELA Administration Dextrose 50 ml 12/23/18 15:18 D50w (25gm) Syringe IV PRN PRN Hypoglycemia Epoetin Zack 4,000 unit 12/24/18 09:00 12/24/18 18:34 Procrit IV 4,000 unit ALFRED PRN Administration hemodialysis Heparin Sodium (Porcine) 5,000 unit 12/23/18 22:00 12/29/18 05:24 Heparin SUB-Q 5,000 unit Q8HR ESTELA Administration Heparin Sodium (Porcine) 2,000 unit 12/24/18 09:00 12/27/18 16:08 Heparin 10,000 Units/10 Ml IV 2,000 unit ALFRED PRN Administration hemodialysis Heparin Sodium (Porcine) 400 unit 12/24/18 09:00 12/27/18 16:12 Heparin 10,000 Units/10 Ml IV 400 unit ALFRED PRN Administration hemodialysis Hydromorphone HCl 2 mg 12/24/18 12:41 12/28/18 22:23 Dilaudid PO 2 mg Q4H PRN Administration Pain , Severe (7-10) Sodium Chloride 100 mls @ 999 mls/hr 12/24/18 09:00 Nacl 0.9% IV ALFRED PRN Hypotension Vancomycin HCl 1 gm in 250 mls @ 167.007 mls/hr 12/29/18 18:00 Vancomycin/Ns 1 Gm/250 Ml IV 01/10/19 19:30 [email or web address] [facility] Isosorbide Mononitrate 60 mg 12/24/18 08:00 12/29/18 08:29 Imdur PO Not Given QDAY [facility] Lactulose 20 gm 12/23/18 20:00 12/29/18 08:30 Cephulac PO Not Given TID [facility] Lanthanum Carbonate 1,000 mg 12/23/18 17:00 12/29/18 08:26 Fosrenol PO 1,000 mg TIDWM ESTELA Administration Miscellaneous Medication 0 pump 12/23/18 22:00 12/29/18 12:24 Nph SUB-Q Not Given ACHS [facility] Ondansetron HCl 8 mg 12/25/18 17:44 12/29/18 08:24 Zofran Odt PO 8 mg Q8H PRN Administration Nausea And Vomiting Pantoprazole Sodium 40 mg 12/24/18 08:00 12/29/18 08:25 Protonix PO 40 mg QDAY [facility] Administration Paricalcitol 1 mcg 12/24/18 09:00 12/24/18 18:34 Zemplar IV 1 mcg ALFRED PRN Administration hemodialysis Polyethylene Glycol 17 gm 12/23/18 15:34 Miralax 3350 PO QDAY PRN Constipation Promethazine HCl 25 mg 12/25/18 17:52 12/27/18 09:27 Phenergan PO 25 mg Q6H PRN Administration Nausea And Vomiting Senna 8.6 mg 12/25/18 22:00 12/29/18 08:36 Senokot PO 8.6 mg Q12H ESTELA Administration Zinc Sulfate 220 mg 12/24/18 08:00 12/29/18 08:25 Zinc Sulfate PO 220 mg QDAY ESTELA Administration
[2018-12-29] MEDS: VANCOMYCIN/NS 1 GM/250 ML 1 GM/250 ML BAG IV SCH (23:36)
[2018-12-29] MEDS: PROCRIT IV PRN (23:37)
[2018-12-29] MEDS: ZEMPLAR IV PRN (23:38)
[2018-12-30] MEDS: HEPARIN SUB-Q SCH ×3 (05:47→21:37)
[2018-12-30 06:17] LABS: Hematocrit 29.2 % (35.5-45.6); Hemoglobin 9.8 gm/dl (11.8-15.2); Mean Corpuscular HGB Conc 34 % (32-34); Mean Corpuscular Volume 97 fl (84-94); Platelet Count 308 K/mm3 (140-440); Red Cell Distribution Width 15.1 % (13.2-15.2)
[2018-12-30 06:25] LABS: Calcium 9.2 mg/dL (8.4-10.2)
[2018-12-30] MEDS: [UNRECOGNIZED DRUG - OTHER] SUB-Q SCH ×4 (07:45→21:35)
[2018-12-30] MEDS: PROTONIX PO SCH (08:15)
[2018-12-30] MEDS: ROCALTROL PO SCH (08:15)
[2018-12-30] MEDS: PHENERGAN PO PRN (08:15)
[2018-12-30] MEDS: FOSRENOL PO SCH ×3 (08:15→17:59)
[2018-12-30] MEDS: HALFPRIN EC PO SCH (08:15)
[2018-12-30] MEDS: CEPHULAC PO SCH ×3 (08:15→21:37)
[2018-12-30] MEDS: NORVASC PO SCH (08:16)
[2018-12-30] MEDS: ZINC SULFATE PO SCH (08:16)
[2018-12-30] MEDS: VITAMIN C PO SCH (08:31)
--- NOTE | 2018-12-30 09:08 | Progress Note ---
Subjective Date of service: 12/30/18 Principal diagnosis: Left BKA Interval history: 58-year-old gentleman with a recent history of left great toe amputation was discharged home with IV antibiotics. Developed worsening infection and upon evaluation at the ER was admitted for further treatment of the infection with more antibiotics. Vascular surgery was consulted and after further evaluation recommended BKA due to gangrenous changes and poor vascular supply. He was evaluated by therapy and found to need acute inpatient rehabilitation in order to facilitate a safe discharge home with the best functional improvement possible. He will need a follow-up appointment with his vascular surgeon in the next week or so. Pain is poorly controlled and the patient states that he was on IV pain medications up until time of discharge. Informed him that he will be on oral pain medications here and that he should've been transitioned to oral pain medications before he was transferred for rehabilitation. We'll monitor his pain level and treat appropriately he is currently taking Dilaudid by mouth. Patient also states that he is having significant nausea without vomiting. In going over his medications it also appears that he has chronic constipation at home for which he does take lactulose on a daily basis with each meal. After the patient was cleared medically he was transferred for further rehabilitation. Patient is participating in therapy and making reasonable progress. Taking rest breaks as needed. No N/V this AM. Had several large BMs since previous KUB. - BM today so far. Pain better controlled and less frequent, he still describes the pain as sharp in nature with an occasional feeling of an electrical shock, improved with medication. Denies palpitations, dyspnea, cough, weakness, or joint pain. Cont to monitor for phantom pain. Tolerating Vanc, WBC improved, afebrile, no other signs of infection. Discussed in Team Conference. Doing ok with therapy progress, limited due to GI upset at times. Performing most ADLs independently or before OT arrives. Siomara- Sup for mobility. Will look to d/c next week 01/05. Will need w/c, 3 in 1. Follow up with surgeon for staple removal. Will need to continue vancomycin in dialysis. All records, vitals, labs and medications were reviewed. No other issues per patient, nursing or therapy. Objective - Exam Narrative Exam: MUSCULOSKELETAL SPECIALTY EXAM CONSTITUTIONAL: Well developed, well nourished, appropriately groomed EENT: EOMI. Hearing intact to soft voice RESPIRATORY: Clear to auscultation bilaterally, no increased work of breathing CARDIOVASCULAR: Regular Rate/ Rhythm, no swelling, edema or tenderness in BUE or BLE. All extr emities warm. GI: + bowel sounds, soft, NTTP, nondistended. INTEGUMENTARY: Normal, no lesion, rash, masses or bruising noted in extremities except for left BKA which has sutures and pao in place. MUSCULOSKELETAL: BUE and BLE normal without defect, crepitus, subluxation, effusion, arthritic changes or TTP except for left BKA. BUE 4+/5, good ROM, with normal tone. RLE 4+/5 good ROM, with normal tone. LLE is reduced range of motion and strength primarily due to pain. NEURO: CN 2-12 grossly intact. Sensation intact in all extremities. No tremor noted in 4 extremities. POSTURE and GAIT: Sitting posture good. Balance appears reasonable. Gait with RW and hops progressing. PSYCH: Alert, oriented x3, affect appears normal. Insight appears intact. - Constitutional Vitals: Vital Signs - 12hr 12/29/18 12/29/18 12/29/18 21:15 21:30 21:45 Temperature Pulse Rate 82 81 83 Respiratory Rate Blood Pressure 140/69 137/68 130/61 O2 Sat by Pulse Oximetry 12/29/18 12/29/18 12/29/18 22:00 22:15 22:30 Temperature 36.6 C Pulse Rate 81 83 83 Respiratory 18 Rate Blood Pressure 126/61 124/61 124/64 O2 Sat by Pulse Oximetry 12/29/18 12/30/18 23:39 04:56 Temperature 36.4 C 36.9 C Pulse Rate 90 86 Respiratory 18 18 Rate Blood Pressure 137/56 122/50 O2 Sat by Pulse 99 99 Oximetry - Allied health notes Allied health notes reviewed: nursing, PT, OT FIMS assessment as documented by PT/OT/ST: Grooming Patient cleans teeth/dentures: Yes Patient brooks/brushes hair: Yes Patient washes, rinses and Yes dries face: Patient washes, rinses and Yes dries hands: Patient shaves: Yes Patient applies make-up: No Patient performs (no make-up/ / (100%) shaving): Patient performs (w/ make-up/ 5/5 (100%) shaving): Grooming FIM Score 5. Supervision ([place] applies toothpaste or opens containers.) Toileting Toileting Device Commode over Toilet Patient able to: Adjust clothes before,Clean self,Adjust clothes after Patient able to perform: 3/3 (100%) Toileting FIM Score 5. Supv./Set-Up (Needs stand-by, set-up, applying prosth/orth.) Social interaction/Memory/Problem solving Social Interaction FIM Score 7. Complete [place] (Interacts appropriately. Controls temper.) Memory FIM Score 6. Modified [place](Mild difficulty remembering people/routines.) Problem Solving FIM Score 5. Supervision (Needs cueing <10% to solve routine problems.) Transfers Mode of Locomotion: Wheelchair Bed/Chair/Wheelchair Transfers 6. Modified [place] (Uses device, sliding FIM Score board, prosth./orth.) Toilet Transfers FIM Score 5. Supervision (Needs supervision or cueing.) Patient transferred to: Shower Shower Transfers FIM Score 4. Minimal Assistance (Patient = 75% or more. Needs touching.) Locomotion- Stairs Device used on Stairs Handrail/s Number of Stairs Ascended/ 2 Descended Patient used handrail/support: Yes Stairs FIM Score 1. Total Assistance (Pt. < 25%, 2 person assist, or <4 stairs.) Locomotion- walk/wheelchair Most Frequent Mode of Wheelchair Locomotion: Ambulation Distance 100 Walking FIM Score 2. Maximal Assistance (Patient = 25% or more. Minimum of 50 ft.) Wheelchair Propulsion Distance 250 Wheelchair FIM Score 5. Supervision (Minimum 150 ft. supv./cues or 50 ft. independently.) Eating Eating FIM Score 6. Modified [place] (Special consistency or uses device.) Dressing-Upper body Patient retrieves clothing Yes items: Patient applies/removes UE No prosthesis or orthosis: Upper Body Dressing FIM Score 5. Supv./Set-Up ([place] sets out clothes or applies pros./orth.) Dressing-lower body Patient retrieves clothing Yes items: Patient applies/removes LE Yes prosthesis or orthosis: Lower Body Dressing FIM Score 5. Supv./Set-Up ([place] sets out clothes or applies pros./orth.) - Labs CBC & Chem 7: 12/30/18 05:47 12/30/18 05:47 Labs: Laboratory Results - last 72 hr 12/28/18 12/28/18 12/28/18 06:24 06:24 07:48 WBC 9.0 RBC 2.91 L Hgb 9.6 L Hct 28.5 L MCV 98 H MCH 33 H MCHC 34 RDW 15.5 H Plt Count 289 Sodium 138 Potassium 4.1 Chloride 97.6 L Carbon Dioxide 28 Anion Gap 17 BUN 26 H Creatinine 4.8 H Estimated GFR 13 BUN/Creatinine Ratio 5 Glucose 201 H POC Glucose 259 H Calcium 8.9 12/28/18 12/28/18 12/29/18 11:26 20:49 07:10 WBC 9.9 RBC 2.84 L Hgb 9.6 L Hct 27.7 L MCV 98 H MCH 34 H MCHC 35 H RDW 15.4 H Plt Count 298 Sodium Potassium Chloride Carbon Dioxide Anion Gap BUN Creatinine Estimated GFR BUN/Creatinine Ratio Glucose POC Glucose 120 H 204 H Calcium 12/29/18 12/29/18 12/30/18 07:10 23:43 05:47 WBC 8.4 RBC 3.00 L Hgb 9.8 L Hct 29.2 L MCV 97 H MCH 33 H MCHC 34 RDW 15.1 Plt Count 308 Sodium 136 L Potassium 4.3 Chloride 96.2 L Carbon Dioxide 31 H Anion Gap 13 BUN 39 H Creatinine 6.2 H Estimated GFR 9 BUN/Creatinine Ratio 6 Glucose 126 H POC Glucose 186 H Calcium 9.5 12/30/18 05:47 WBC RBC Hgb Hct MCV MCH MCHC RDW Plt Count Sodium 140 Potassium 4.1 Chloride 98.5 Carbon Dioxide 33 H Anion Gap 13 BUN 23 H Creatinine 4.2 H Estimated GFR 15 BUN/Creatinine Ratio 5 Glucose 152 H POC Glucose Calcium 9.2 Assessment and Plan Status post left BKA: Monitor residual limb for any signs of infection are skin breakdown. We'll also monitor for any phantom sensation or phantom pain which the patient denies at this time. Patient does have sharp postsurgical pain which is still present and poorly controlled. Encouraged patient to maintain the stump protector in order to protect the residual limb. We'll work with the patient to develop his ability to improve his independent mobility, range of motion and strengthening of the residual limb in order to be an acceptable candidate for a prosthesis. Have discussed with the patient the increased level of work that is required to ambulate with a prosthetic limb and will encourage him to continue with maintaining his cardiovascular health. Start vanc for wound infection ppx in residual limb. Diabetes type 1: Maintain the patient on his insulin pump. He is able to maintain his sugars reasonably at home and should be able to continue with that here. We will spot check him with our meter as well to ensure that he is not getting hyper-or hypoglycemic. Hypertension continue medications and adjust as needed for normotension. Slightly elevated in mornings, monitor End-stage renal disease on hemodialysis: Thursday. Medications have been started from previous hospital. Have consulted nephrology for management of end-stage renal disease and hemodialysis. CAD: Continue aspirin, monitor for any further signs of cardiac issues. Patient is s/p CABG Constipation: Problem for the patient at home as well, he states that he does take lactulose typically with every meal. Have order that for him here as well with hold orders. KUB showed significant stool burden. Increased meds over weekend with final success. De-escalate as needed. Z73.6 ADL dysfunction: OT will work on improving ability to perform ADLs (including assistive devices) to increase independence and decrease caregiver burden and improve functional transfers and mobility training. R26.2 Difficulty walking: PT will work on gait training and proper use of assistive devices and advance as appropriate to use of stairs and outside ambulation on uneven surfaces. R26.81 Unsteadiness on feet: PT will work on improving static and dynamic si tting and standing balance as well as proper use of assistive devices to decrease risk of falls. R26.89 Abnormality of gait: PT will work to improve safety and efficiency of gait through neuromotor training and gait training along with instruction on proper use of assistive devices. M62.81 Muscle weakness: PT & OT will work on strengthening exercises to improve functional strength including mixture of closed and open kinetic chain exercises. R53.81 Debility: PT & OT will work on improving overall functional status to improve participation with ADLs, mobility and social involvement. R53.83 Fatigue: PT & OT will work on improving endurance through aerobic exercises and therapeutic activity while monitoring patients tolerance for activity and vital signs as needed. DVT ppx: Heparin Pain: Continue physical modalities in therapy and pain medications as needed to achieve functional pain control. Increase pain med frequency Sleep: Monitor and address as needed. Bowel: Monitor and address as needed. Appetite: Monitor and address as needed. Discharge planning: Pending therapy progress and care plan meeting. Will continue discussion with therapy team, SW, patient and family. Plan to discharge 01/05 with w/c, 3 in1 Restrictions/ Precautions: Falls WB status: FWB Functional Hx: ADLs: Independent Cognition: Independent Mobility: No AD Barriers to Discharge: Decreased mobility and ability to perform self care, balance deficits, weakness, poorly controlled pain, constipation Estimated Length of Stay: 1418 days Discharge Destination: Home with family
[2018-12-30] MEDS: SENOKOT PO SCH ×2 (10:50→21:38)
--- NOTE | 2018-12-30 17:45 | Progress Note ---
Assessment and Plan - Patient Problems (1) End stage renal disease Current Visit: Yes Status: Acute Plan to address problem: End-stage renal disease dialysis AV fistula continue dialysis Continue Thursday (2) Hyponatremia Current Visit: Yes Status: Acute Plan to address problem: Hyponatremia : - 2/2 free water excess : - free water restriction - continue HD. (3) Hypertension Current Visit: Yes Status: Acute Qualifiers: Hypertension type: essential hypertension Plan to address problem: Hypertension controlled Ensure medications Monitor blood pressure. (4) Diabetes mellitus Current Visit: Yes Status: Acute Qualifiers: Diabetes mellitus complication detail: with other circulatory complications Plan to address problem: Diabetes mellitus type 2 status below knee amputation ensure medications Monitor fingerstick. Subjective Principal diagnosis: Left BKA Interval history: 58-year-old gentleman with metastatic renal disease on hemodialysis Thursday Status post amputation below the knee amputation possible underlying history of diabetes and hypertension He is undergoing rehab. Denies any orthopnea PND Denies any fevers or chills plan for dialysis MWF. Received HD late last night. Objective - Vital Signs Vital signs: Vital Signs - 12hr 12/30/18 12/30/18 11:24 15:40 Temperature 98.6 F 98.3 F Pulse Rate 90 78 Respiratory 18 18 Rate Blood Pressure 118/88 128/54 O2 Sat by Pulse 97 100 Oximetry - General Appearance General appearance: well-developed, well-nourished EENT: ATNC, PERRL, mucous membranes moist Neck: no JVD Respiratory: Present: Clear to Ascultation Cardiology: regular, S1S2 Gastrointestinal: normal, normoactive bowel sounds Integumentary: no rash Neurologic: alert and oriented x3, CN 3-12 intact Psychiatric: mood/affect appropriate - Lab 12/30/18 05:47 12/30/18 05:47 Most recent lab results Calcium 9.2 mg/dL (8.4-10.2) 12/30/18 05:47 Medications & Allergies - Medications Allergies/Adverse Reactions: Allergies morphine Allergy (Verified 12/23/18 14:00) Nausea &VOMITING oxycodone Allergy (Verified 12/23/18 14:00) Nausea & VOMITING Home Medications: Home Medications Medication Instructions Recorded Confirmed Last Taken Type Ascorbic Acid [Vitamin C] 250 mg PO QDAY 12/24/18 12/24/18 Unknown History Bimatoprost [Lumigan] 1 drop OU HS 12/24/18 12/24/18 Unknown History Calcitriol [Rocaltrol] 0.25 mcg PO DAILY 12/24/18 12/24/18 Unknown History ISOSORBIDE MONOnitrate [Imdur ER] 60 mg PO DAILY 12/24/18 12/24/18 Unknown History Lactulose 20 gram PO TID 12/24/18 12/24/18 Unknown History Lanthanum Carbonate [Fosrenol] 1,000 mg PO DAILY 12/24/18 12/24/18 Unknown Hi story Latanoprost 0.005% 1 drop OU HS 12/24/18 12/24/18 Unknown History Losartan [Cozaar] 25 mg PO DAILY 12/24/18 12/24/18 Unknown History Pantoprazole [Protonix] 40 mg PO QDAY 12/24/18 12/24/18 Unknown History Prochlorperazine [Compazine] 1 tab PO TID PRN 12/24/18 12/24/18 Unknown History Rivaroxaban [Xarelto] 2.5 mg PO DAILY 12/24/18 12/24/18 Unknown History Senna 1 tab PO BID 12/24/18 12/24/18 Unknown History Zinc Sulfate 1 cap PO DAILY 12/24/18 12/24/18 Unknown History amLODIPine [Norvasc] 10 mg PO DAILY 12/24/18 12/24/18 Unknown History Active Medications: Generic Name Dose Route Start Last Admin Trade Name Freq PRN Reason Stop Dose Admin Acetaminophen 650 mg 12/23/18 15:34 Tylenol PO Q6H PRN Non Cardiac Pain or Temp>100.5 Amlodipine Besylate 10 mg 12/24/18 08:00 12/30/18 08:16 Norvasc PO 10 mg QDAY ESTELA Administration Ascorbic Acid 250 mg 12/24/18 08:00 12/30/18 08:31 Vitamin C PO 250 mg QDAY ESTELA Administration Aspirin 81 mg 12/24/18 08:00 12/30/18 08:15 Halfprin Ec PO 81 mg QDAY ESTELA Administration Bisacodyl 10 mg 12/23/18 15:34 Dulcolax [place] QDAY PRN Constipation Calcitriol 0.25 mcg 12/24/18 08:00 12/30/18 08:15 Rocaltrol PO 0.25 mcg QDAY ESTELA Administration Dextrose 50 ml 12/23/18 15:18 D50w (25gm) Syringe IV PRN PRN Hypoglycemia Epoetin Zack 4,000 unit 12/24/18 09:00 12/29/18 23:37 Procrit IV 4,000 unit ALFRED PRN Administration hemodialysis Heparin Sodium (Porcine) 5,000 unit 12/23/18 22:00 12/30/18 13:03 Heparin SUB-Q 5,000 unit Q8HR ESTELA Administration Heparin Sodium (Porcine) 2,000 unit 12/24/18 09:00 12/27/18 16:08 Heparin 10,000 Units/10 Ml IV 2,000 unit ALFRED PRN Administration hemodialysis Heparin Sodium (Porcine) 400 unit 12/24/18 09:00 12/27/18 16:12 Heparin 10,000 Units/10 Ml IV 400 unit ALFRED PRN Administration hemodialysis Hydromorphone HCl 2 mg 12/24/18 12:41 12/28/18 22:23 Dilaudid PO 2 mg Q4H PRN Administration Pain , Severe (7-10) Sodium Chloride 100 mls @ 999 mls/hr 12/24/18 09:00 Nacl 0.9% IV ALFRED PRN Hypotension Vancomycin HCl 1 gm in 250 mls @ 167.007 mls/hr 12/29/18 18:00 12/29/18 23:36 Vancomycin/Ns 1 Gm/250 Ml IV 01/10/19 19:30 167.007 mls/hr [email or web address] ESTELA Administration Isosorbide Mononitrate 60 mg 12/24/18 08:00 12/29/18 08:29 Imdur PO Not Given QDAY ESTELA Lactulose 20 gm 12/23/18 20:00 12/30/18 08:15 Cephulac PO 20 gm TID ESTELA Administration Lanthanum Carbonate 1,000 mg 12/23/18 17:00 12/30/18 12:17 Fosrenol PO 1,000 mg TIDWM ESTELA Administration Miscellaneous Medication 0 pump 12/23/18 22:00 12/29/18 23:53 Nph SUB-Q Not Given ACHS ESTELA Ondansetron HCl 8 mg 12/25/18 17:44 12/29/18 08:24 Zofran Odt PO 8 mg Q8H PRN Administration Nausea And Vomiting Pantoprazole Sodium 40 mg 12/24/18 08:00 12/30/18 08:15 Protonix PO 40 mg QDAY ESTELA Administration Paricalcitol 1 mcg 12/24/18 09:00 12/29/18 23:38 Zemplar IV 1 mcg ALFRED PRN Administration hemodialysis Polyethylene Glycol 17 gm 12/23/18 15:34 Miralax 3350 PO QDAY PRN Constipation Promethazine HCl 25 mg 12/25/18 17:52 12/30/18 08:15 Phenergan PO 25 mg Q6H PRN Administration Nausea And Vomiting Senna 8.6 mg 12/25/18 22:00 12/29/18 23:50 Senokot PO Not Given Q12H ESTELA Zinc Sulfate 220 mg 12/24/18 08:00 12/30/18 08:16 Zinc Sulfate PO 220 mg QDAY ESTELA Administration
[2018-12-31 05:36] LABS: Hematocrit 29.8 % (35.5-45.6); Mean Corpuscular HGB Conc 34 % (32-34); Mean Corpuscular Volume 98 fl (84-94); Platelet Count 316 K/mm3 (140-440); Red Blood Count 3.06 M/mm3 (3.65-5.03); Red Cell Distribution Width 15.4 % (13.2-15.2)
[2018-12-31 06:00] LABS: Calcium 9.5 mg/dL (8.4-10.2)
[2018-12-31] MEDS: HEPARIN SUB-Q SCH ×3 (06:49→21:37)
[2018-12-31] MEDS: [UNRECOGNIZED DRUG - OTHER] SUB-Q SCH ×4 (07:44→23:37)
[2018-12-31] MEDS: FOSRENOL PO SCH ×3 (08:35→17:48)
[2018-12-31] MEDS: ZINC SULFATE PO SCH (08:36)
[2018-12-31] MEDS: ROCALTROL PO SCH (08:37)
[2018-12-31] MEDS: HALFPRIN EC PO SCH (08:38)
[2018-12-31] MEDS: VITAMIN C PO SCH (08:39)
[2018-12-31] MEDS: CEPHULAC PO SCH ×3 (08:47→23:00)
[2018-12-31] MEDS: IMDUR PO SCH ×2 (08:47→13:38)
[2018-12-31] MEDS: SENOKOT PO SCH ×2 (10:46→21:38)
[2018-12-31] MEDS: PROTONIX PO SCH (13:40)
[2018-12-31] MEDS: NORVASC PO SCH (13:41)
--- NOTE | 2018-12-31 16:26 | Progress Note ---
Subjective Date of service: 12/31/18 Principal diagnosis: Left BKA Interval history: 58-year-old gentleman with a recent history of left great toe amputation was discharged home with IV antibiotics. Developed worsening infection and upon evaluation at the ER was admitted for further treatment of the infection with more antibiotics. Vascular surgery was consulted and after further evaluation recommended BKA due to gangrenous changes and poor vascular supply. He was evaluated by therapy and found to need acute inpatient rehabilitation in order to facilitate a safe discharge home with the best functional improvement possible. He will need a follow-up appointment with his vascular surgeon in the next week or so. Pain is poorly controlled and the patient states that he was on IV pain medications up until time of discharge. Informed him that he will be on oral pain medications here and that he should've been transitioned to oral pain medications before he was transferred for rehabilitation. We'll monitor his pain level and treat appropriately he is currently taking Dilaudid by mouth. Patient also states that he is having significant nausea without vomiting. In going over his medications it also appears that he has chronic constipation at home for which he does take lactulose on a daily basis with each meal. After the patient was cleared medically he was transferred for further rehabilitation. Patient is participating in therapy and making reasonable progress. Taking rest breaks as needed. No N/V this AM. Had several large BMs since previous KUB. - BM today so far. Pain better controlled and less frequent, he still describes the pain as sharp in nature with an occasional feeling of an electrical shock, improved with medication. Denies palpitations, dyspnea, cough, weakness, or joint pain. Cont to monitor for phantom pain. Tolerating Vanc - called by nursing and informed IV came out and he refused a new one. Seemed to understand that he needed it. WBC improved, afebrile, no signs of infection. Plan to d/c next Thursday. Dialysis center notified and Rx for vanc sent. All records, vitals, labs and medications were reviewed. No other issues per patient, nursing or therapy. Objective - Exam Narrative Exam: MUSCULOSKELETAL SPECIALTY EXAM CONSTITUTIONAL: Well developed, well nourished, appropriately groomed EENT: EOMI. Hearing intact to soft voice RESPIRATORY: Clear to auscultation bilaterally, no increased work of breathing CARDIOVASCULAR: Regular Rate/ Rhythm, no swelling, edema or tenderness in BUE or BLE. All extremities warm. GI: + bowel sounds, soft, NTTP, nondistended. INTEGUMENTARY: Normal, no lesion, rash, masses or bruising noted in extremities except for left BKA which has sutures and pao in place. MUSCULOSKELETAL: BUE and BLE normal without defect, crepitus, subluxation, effusion, arthritic changes or TTP except for left BKA. BUE 4+/5, good ROM, with normal tone. RLE 4+/5 good ROM, with normal tone. LLE is reduced range of motion and strength primarily due to pain. NEURO: CN 2-12 grossly intact. Sensation intact in all extremities. No tremor noted in 4 extremities. POSTURE and GAIT: Sitting posture good. Balance appears reasonable. Gait with RW and hops progressing. Doing well with transfers PSYCH: Alert, oriented x3, affect appears normal. Insight appears intact. - Constitutional Vitals: Vital Signs - 12hr 12/31/18 05:09 Temperature 36.9 C Pulse Rate 89 Respiratory 18 Rate Blood Pressure 148/60 O2 Sat by Pulse 98 Oximetry - Allied health notes Allied health notes reviewed: nursing, PT, OT FIMS assessment as documented by PT/OT/ST: Grooming Patient cleans teeth/dentures: Yes Patient brooks/brushes hair: Yes Patient washes, rinses and Yes dries face: Patient washes, rinses and Yes dries hands: Patient shaves: Yes Patient applies make-up: No Patient performs (no make-up/ /4 (100%) shaving): Patient performs (w/ make-up/ 5/5 (100%) shaving): Grooming FIM Score 5. Supervision ([place] applies toothpaste or opens containers.) Toileting Toileting Device Commode over Toilet Patient able to: Adjust clothes before,Clean self,Adjust clothes after Patient able to perform: 3/3 (100%) Toileting FIM Score 5. Supv./Set-Up (Needs stand-by, set-up, applying prosth/orth.) Social interaction/Memory/Problem solving Social Interaction FIM Score 6. Mod. Bland (Mostly appropriate. May need meds. No supv.) Memory FIM Score 6. Modified Bland(Mild difficulty remembering people/routines.) Problem Solving FIM Score 6. Mod. Bland (Mild difficulty or needs more time w/ complex.) Transfers Mode of Locomotion: Wheelchair Bed/Chair/Wheelchair Transfers 5. Supervision (Needs supv. or set-up for FIM Score sliding board, foot rests.) Toilet Transfers FIM Score 5. Supervision (Needs supervision or cueing.) Patient transferred to: Shower Shower Transfers FIM Score 4. Minimal Assistance (Patient = 75% or more. Needs touching.) Locomotion- Stairs Device used on Stairs Handrail/s Number of Stairs Ascended/ 2 Descended Patient used handrail/support: Yes Stairs FIM Score 1. Total Assistance (Pt. < 25%, 2 person assist, or <4 stairs.) Locomotion- walk/wheelchair Most Frequent Mode of Wheelchair Locomotion: Ambulation Distance 150 Walking FIM Score 2. Maximal Assistance (Patient = 25% or more. Minimum of 50 ft.) Wheelchair Propulsion Distance 250 Wheelchair FIM Score 6. Modified Bland (Wheels a minimum of 150 ft.) Eating Eating FIM Score 6. Modified Bland (Special consistency or uses device.) Dressing-Upper body Patient retrieves clothing Yes items: Patient applies/removes UE No prosthesis or orthosis: Upper Body Dressing FIM Score 6. Modified Bland (Needs equipment, velcro or pros./orth.) Dressing-lower body Patient retrieves clothing Yes items: Patient applies/removes LE Yes prosthesis or orthosis: Lower Body Dressing FIM Score 6. Modified Bland (Needs equipment, velcro or pros./orth.) - Labs CBC & Chem 7: 01/01/19 06:36 12/31/18 05:26 Labs: Laboratory Results - last 72 hr 12/28/18 12/29/18 12/29/18 20:49 07:10 07:10 WBC 9.9 RBC 2.84 L Hgb 9.6 L Hct 27.7 L MCV 98 H MCH 34 H MCHC 35 H RDW 15.4 H Plt Count 298 Sodium 136 L Potassium 4.3 Chloride 96.2 L Carbon Dioxide 31 H Anion Gap 13 BUN 39 H Creatinine 6.2 H Estimated GFR 9 BUN/Creatinine Ratio 6 Glucose 126 H POC Glucose 204 H Calcium 9.5 Random Vancomycin 12/29/18 12/30/18 12/30/18 23:43 05:47 05:47 WBC 8.4 RBC 3.00 L Hgb 9.8 L Hct 29.2 L MCV 97 H MCH 33 H MCHC 34 RDW 15.1 Plt Count 308 Sodium 140 Potassium 4.1 Chloride 98.5 Carbon Dioxide 33 H Anion Gap 13 BUN 23 H Creatinine 4.2 H Estimated GFR 15 BUN/Creatinine Ratio 5 Glucose 152 H POC Glucose 186 H Calcium 9.2 Random Vancomycin 12/31/18 12/31/18 12/31/18 05:26 05:26 05:26 WBC 9.4 RBC 3.06 L Hgb 10.0 L Hct 29.8 L MCV 98 H MCH 33 H MCHC 34 RDW 15.4 H Plt Count 316 Sodium 137 Potassium 4.9 Chloride 95.9 L Carbon Dioxide 29 Anion Gap 17 BUN 35 H Creatinine 6.1 H Estimated GFR 10 BUN/Creatinine Ratio 6 Glucose 195 H POC Glucose Calcium 9.5 Random Vancomycin 22.5 Assessment and Plan Status post left BKA: Monitor residual limb for any signs of infection are skin breakdown. We'll also monitor for any phantom sensation or phantom pain which the patient denies at this time. Patient does have sharp postsurgical pain which is still present and poorly controlled. Encouraged patient to maintain the stump protector in order to protect the residual limb. We'll work with the patient to develop his ability to improve his independent mobility, range of motion and strengthening of the residual limb in order to be an acceptable candidate for a prosthesis. Have discussed with the patient the increased level of work that is required to ambulate with a prosthetic limb and will encourage h im to continue with maintaining his cardiovascular health. Start vanc for wound infection ppx in residual limb. Diabetes type 1: Maintain the patient on his insulin pump. He is able to maintain his sugars reasonably at home and should be able to continue with that here. We will spot check him with our meter as well to ensure that he is not getting hyper-or hypoglycemic. Hypertension continue medications and adjust as needed for normotension. Slightly elevated in mornings, monitor End-stage renal disease on hemodialysis: Thursday. Medications have been started from previous hospital. Have consulted nephrology for management of end-stage renal disease and hemodialysis. CAD: Continue aspirin, monitor for any further signs of cardiac issues. Patient is s/p CABG Constipation: Problem for the patient at home as well, he states that he does take lactulose typically with every meal. Have order that for him here as well with hold orders. KUB showed significant stool burden. Several BMs. De- escalate as needed. Z73.6 ADL dysfunction: OT will work on improving ability to perform ADLs (including assistive devices) to increase independence and decrease caregiver bu rden and improve functional transfers and mobility training. R26.2 Difficulty walking: PT will work on gait training and proper use of assistive devices and advance as appropriate to use of stairs and outside ambulation on uneven surfaces. R26.81 Unsteadiness on feet: PT will work on improving static and dynamic sitting and standing balance as well as proper use of assistive devices to decrease risk of falls. R26.89 Abnormality of gait: PT will work to improve safety and efficiency of gait through neuromotor training and gait training along with instruction on proper use of assistive devices. M62.81 Muscle weakness: PT & OT will work on strengthening exercises to improve functional strength including mixture of closed and open kinetic chain exercises. R53.81 Debility: PT & OT will work on improving overall functional status to improve participation with ADLs, mobility and social involvement. R53.83 Fatigue: PT & OT will work on improving endurance through aerobic exercises and therapeutic activity while monitoring patients tolerance for activity and vital signs as needed. DVT ppx: Heparin Pain: Continue physical modalities in therapy and pain medications as needed to achieve functional pain control. Increase pain med frequency Sleep: Monitor and address as needed. Bowel: Monitor and address as needed. Appetite: Monitor and address as needed. Discharge planning: Pending therapy progress and care plan meeting. Will continue discussion with therapy team, SW, patient and family. Plan to discharge 01/05 with w/c, 3 in1 Restrictions/ Precautions: Falls WB status: FWB Functional Hx: ADLs: Independent Cognition: Independent Mobility: No AD Barriers to Discharge: Decreased mobility and ability to perform self care, balance deficits, weakness, poorly controlled pain, constipation Estimated Length of Stay: 1418 days Discharge Destination: Home with family
[2018-12-31] MEDS: Renal Caps PO SCH (16:48)
--- NOTE | 2018-12-31 16:55 | Progress Note ---
Assessment and Plan - Patient Problems (1) End stage renal disease Current Visit: Yes Status: Acute Plan to address problem: End-stage renal disease dialysis AV fistula continue dialysis Continue Thursday (2) Hyponatremia Current Visit: Yes Status: Acute Plan to address problem: Hyponatremia : - 2/2 free water excess : - free water restriction - continue HD. (3) Hypertension Current Visit: Yes Status: Acute Qualifiers: Hypertension type: essential hypertension Plan to address problem: Hypertension controlled Ensure medications Monitor blood pressure. (4) Diabetes mellitus Current Visit: Yes Status: Acute Qualifiers: Diabetes mellitus complication detail: with other circulatory complications Plan to address problem: Diabetes mellitus type 2 status below knee amputation ensure medications Monitor fingerstick. Subjective Principal diagnosis: Left BKA Interval history: 58-year-old gentleman with metastatic renal disease on hemodialysis Thursday Status post amputation below the knee amputation possible underlying history of diabetes and hypertension He is undergoing rehab. Denies any orthopnea PND Denies any fevers or chills I attest I saw the patient on dialysis Objective - Vital Signs Vital signs: Vital Signs - 12hr 12/31/18 12/31/18 12/31/18 05:09 15:45 16:00 Temperature 98.5 F 98.5 F Pulse Rate 89 74 73 Respiratory 18 18 Rate Blood Pressure 148/60 111/46 118/52 O2 Sat by Pulse 98 Oximetry 12/31/18 16:15 Temperature Pulse Rate 70 Respiratory Rate Blood Pressure 126/56 O2 Sat by Pulse Oximetry - General Appearance General appearance: well-developed, well-nourished EENT: ATNC, PERRL Neck: no JVD Respiratory: Present: Clear to Ascultation Cardiology: regular, S1S2 Gastrointestinal: normal, normoactive bowel sounds Integumentary: no rash Neurologic: alert and oriented x3, CN 3-12 intact Musculoskeletal: deferred - Lab 12/31/18 05:26 12/31/18 05:26 Most recent lab results Calcium 9.5 mg/dL (8.4-10.2) 12/31/18 05:26 - Imaging Chest x-ray: image reviewed (I reviewed chest x-ray without overt edema) Medications & Allergies - Medications Allergies/Adverse Reactions: Allergies morphine Allergy (Verified 12/23/18 14:00) Nausea &VOMITING oxycodone Allergy (Verified 12/23/18 14:00) Nausea & VOMITING Home Medications: Home Medications Medication Instructions Recorded Confirmed Last Taken Type Ascorbic Acid [Vitamin C] 250 mg PO QDAY 12/24/18 12/24/18 Unknown History Bimatoprost [Lumigan] 1 drop OU HS 12/24/18 12/24/18 Unknown History Calcitriol [Rocaltrol] 0.25 mcg PO DAILY 12/24/18 12/24/18 Unknown History ISOSORBIDE MONOnitrate [Imdur ER] 60 mg PO DAILY 12/24/18 12/24/18 Unknown History Lactulose 20 gram PO TID 12/24/18 12/24/18 Unknown History Lanthanum Carbonate [Fosrenol] 1,000 mg PO DAILY 12/24/18 12/24/18 Unknown History Latanoprost 0.005% 1 drop OU HS 12/24/18 12/24/18 Unknown History Losartan [Cozaar] 25 mg PO DAILY 12/24/18 12/24/18 Unknown History Pantoprazole [Protonix] 40 mg PO QDAY 12/24/18 12/24/18 Unknown History Prochlorperazine [Compazine] 1 tab PO TID PRN 12/24/18 12/24/18 Unknown History Rivaroxaban [Xarelto] 2.5 mg PO DAILY 12/24/18 12/24/18 Unknown History Senna 1 tab PO BID 12/24/18 12/24/18 Unknown History Zinc Sulfate 1 cap PO DAILY 12/24/18 12/24/18 Unknown History amLODIPine [Norvasc] 10 mg PO DAILY 12/24/18 12/24/18 Unknown History Active Medications: Generic Name Dose Route Start Last Admin Trade Name Freq PRN Reason Stop Dose Admin Acetaminophen 650 mg 12/23/18 15:34 Tylenol PO Q6H PRN Non Cardiac Pain or Temp>100.5 Amlodipine Besylate 10 mg 12/24/18 08:00 12/31/18 13:41 Norvasc PO 10 mg QDAY ESTELA Administration Ascorbic Acid 250 mg 12/24/18 08:00 12/31/18 08:39 Vitamin C PO 250 mg QDAY ESTELA Administration Aspirin 81 mg 12/24/18 08:00 12/31/18 08:38 Halfprin Ec PO 81 mg QDAY ESTELA Administration Bisacodyl 10 mg 12/23/18 15:34 Dulcolax SC QDAY PRN Constipation Calcitriol 0.25 mcg 12/24/18 08:00 12/31/18 08:37 Rocaltrol PO 0.25 mcg QDAY ESTELA Administration Dextrose 50 ml 12/23/18 15:18 D50w (25gm) Syringe IV PRN PRN Hypoglycemia Epoetin Zack 4,000 unit 12/24/18 09:00 12/29/18 23:37 Procrit IV 4,000 unit ALFRED PRN Administration hemodialysis Heparin Sodium (Porcine) 5,000 unit 12/23/18 22:00 12/31/18 13:59 Heparin SUB-Q 5,000 unit Q8HR ESTELA Administration Heparin Sodium (Porcine) 2,000 unit 12/24/18 09:00 12/27/18 16:08 Heparin 10,000 Units/10 Ml IV 2,000 unit ALFRED PRN Administration hemodialysis Heparin Sodium (Porcine) 400 unit 12/24/18 09:00 12/27/18 16:12 Heparin 10,000 Units/10 Ml IV 400 unit ALFRED PRN Administration hemodialysis Hydromorphone HCl 2 mg 12/24/18 12:41 12/28/18 22:23 Dilaudid PO 2 mg Q4H PRN Administration Pain , Severe (7-10) Sodium Chloride 100 mls @ 999 mls/hr 12/24/18 09:00 Nacl 0.9% IV ALFRED PRN Hypotension Vancomycin HCl 1 gm in 250 mls @ 167.007 mls/hr 12/29/18 18:00 12/29/18 23:36 Vancomycin/Ns 1 Gm/250 Ml IV 01/10/19 19:30 167.007 mls/hr [email or web address] ESTELA Administration Isosorbide Mononitrate 60 mg 12/24/18 08:00 12/31/18 13:38 Imdur PO 60 mg QDAY ESTELA Administration Lactulose 20 gm 12/23/18 20:00 12/30/18 21:37 Cephulac PO 20 gm TID ESTELA Administration Lanthanum Carbonate 1,000 mg 12/23/18 17:00 12/31/18 08:36 Fosrenol PO 1,000 mg TIDWM ESTELA Administration Miscellaneous Medication 0 pump 12/23/18 22:00 12/30/18 21:35 Nph SUB-Q Not Given ACHS ESTELA Multivit/Ca Carb/B Cmplx/FA/Prenat 1 cap 12/31/18 16:00 Renal Caps PO QDAY ESTELA Ondansetron HCl 8 mg 12/25/18 17:44 12/29/18 08:24 Zofran Odt PO 8 mg Q8H PRN Administration Nausea And Vomiting Pantoprazole Sodium 40 mg 12/24/18 08:00 12/31/18 13:40 Protonix PO 40 mg QDAY [facility] Administration Paricalcitol 1 mcg 12/24/18 09:00 12/29/18 23:38 Zemplar IV 1 mcg ALFRED PRN Administration hemodialysis Polyethylene Glycol 17 gm 12/23/18 15:34 Miralax 3350 PO QDAY PRN Constipation Promethazine HCl 25 mg 12/25/18 17:52 12/30/18 08:15 Phenergan PO 25 mg Q6H PRN Administration Nausea And Vomiting Senna 8.6 mg 12/25/18 22:00 12/30/18 21:38 Senokot PO Not Given Q12H [facility] Zinc Sulfate 220 mg 12/24/18 08:00 12/31/18 08:36 Zinc Sulfate PO 220 mg QDAY ESTELA Administration
[2018-12-31] MEDS: ZEMPLAR IV PRN (19:33)
[2018-12-31] MEDS: PROCRIT IV PRN (19:33)
[2018-12-31] MEDS ORDERED: NACL 0.9 (PRIMING MACHINE ONLY DIALYSIS) MC ONE (19:35)
[2018-12-31] MEDS: VANCOMYCIN/NS 1 GM/250 ML 1 GM/250 ML BAG IV SCH ×2 (19:48→22:29)
[2018-12-31] MEDS: MIRALAX 3350 PO PRN (21:41)
[2019-01-01 06:49] LABS: Hematocrit 29.2 % (35.5-45.6); Mean Corpuscular HGB Conc 34 % (32-34); Mean Corpuscular Volume 98 fl (84-94); Platelet Count 303 K/mm3 (140-440); Red Blood Count 2.99 M/mm3 (3.65-5.03); Red Cell Distribution Width 15.8 % (13.2-15.2)
[2019-01-01] MEDS: HEPARIN SUB-Q SCH ×3 (07:05→21:47)
[2019-01-01 07:14] LABS: Calcium 9.2 mg/dL (8.4-10.2)
--- NOTE | 2019-01-01 08:02 | Progress Note ---
Subjective Date of service: 01/01/19 Principal diagnosis: Left BKA Interval history: 58-year-old gentleman with a recent history of left great toe amputation was discharged home with IV antibiotics. Developed worsening infection and upon evaluation at the ER was admitted for further treatment of the infection with more antibiotics. Vascular surgery was consulted and after further evaluation recommended BKA due to gangrenous changes and poor vascular supply. He was evaluated by therapy and found to need acute inpatient rehabilitation in order to facilitate a safe discharge home with the best functional improvement possible. He will need a follow-up appointment with his vascular surgeon in the next week or so. Pain is poorly controlled and the patient states that he was on IV pain medications up until time of discharge. Informed him that he will be on oral pain medications here and that he should've been transitioned to oral pain medications before he was transferred for rehabilitation. We'll monitor his pain level and treat appropriately he is currently taking Dilaudid by mouth. Patient also states that he is having significant nausea without vomiting. In going over his medications it also appears that he has chronic constipation at home for which he does take lactulose on a daily basis with each meal. After the patient was cleared medically he was transferred for further rehabilitation. Patient is participating in therapy and making reasonable progress. Taking rest breaks as needed. No N/V this AM. -BM. Reminded of meds available. Pain better controlled and less frequent, he still describes the pain as sharp in nature with an occasional feeling of an electrical shock, improved with medication. May need low dose gabapentin if this worsens. Denies palpitations, dyspnea, cough, weakness, or joint pain. Cont to monitor for phantom pain. Cont Vanc on HD days until 01/10. WBC improved, afebrile, no signs of infection. Plan to d/c Thursday. Dialysis center notified and Rx for vanc sent. All records, vitals, labs and medications were reviewed. No other issues per patient, nursing or therapy. Objective - Exam Narrative Exam: MUSCULOSKELETAL SPECIALTY EXAM CONSTITUTIONAL: Well developed, well nourished, appropriately groomed EENT: EOMI. Hearing intact to soft voice RESPIRATORY: Clear to auscultation bilaterally, no increased work of breathing CARDIOVASCULAR: Regular Rate/ Rhythm, no swelling, edema or tenderness in BUE or BLE. All extremities warm. GI: + bowel sounds, soft, NTTP, nondistended. INTEGUMENTARY: Normal, no lesion, rash, masses or bruising noted in extremities except for left BKA which has sutures and pao in place. MUSCULOSKELETAL: BUE and BLE normal without defect, crepitus, subluxation, effusion, arthritic changes or TTP except for left BKA. BUE 4+/5, good ROM, with normal tone. RLE 4+/5 good ROM, with normal tone. LLE is reduced range of motion and strength primarily due to pain. NEURO: CN 2-12 grossly intact. Sensation intact in all extremities. No tremor noted in 4 extremities. POSTURE and GAIT: Sitting posture good. Balance appears reasonable. Gait with RW and hops progressing. Doing well with transfers PSYCH: Alert, oriented x3, affect appears normal. Insight appears intact. - Constitutional Vitals: Vital Signs - 12hr 12/31/18 12/31/18 12/31/18 20:41 21:06 23:58 Temperature 36.9 C 36.7 C 37.0 C Pulse Rate 97 H 57 L 85 Respiratory 17 18 18 Rate Blood Pressure 99/46 100/38 Blood Pressure 138/69 [Left] O2 Sat by Pulse 99 98 97 Oximetry 01/01/19 01/01/19 04:41 07:28 Temperature 37.3 C 36.8 C Pulse Rate 90 90 Respiratory 17 18 Rate Blood Pressure 120/51 115/41 Blood Pressure [Left] O2 Sat by Pulse 98 97 Oximetry - Allied health notes Allied health notes reviewed: nursing, PT, OT FIMS assessment as documented by PT/OT/ST: Grooming Patient cleans teeth/dentures: Yes Patient brooks/brushes hair: Yes Patient washes, rinses and Yes dries face: Patient washes, rinses and Yes dries hands: Patient shaves: Yes Patient applies make-up: No Patient performs (no make-up/ /4 (100%) shaving): Patient performs (w/ make-up/ 5/5 (100%) shaving): Grooming FIM Score 5. Supervision ([place] applies toothpaste or opens containers.) Toileting Toileting Device Commode over Toilet Patient able to: Adjust clothes before,Clean self,Adjust clothes after Patient able to perform: 3/3 (100%) Toileting FIM Score 5. Supv./Set-Up (Needs stand-by, set-up, applying prosth/orth.) Social interaction/Memory/Problem solving Social Interaction FIM Score 6. Mod. [place] (Mostly appropriate. May need meds. No supv.) Memory FIM Score 6. Modified [place](Mild difficulty remembering people/routines.) Problem Solving FIM Score 6. Mod. [place] (Mild difficulty or needs more time w/ complex.) Transfers Mode of Locomotion: Wheelchair Bed/Chair/Wheelchair Transfers 5. Supervision (Needs supv. or set-up for FIM Score sliding board, foot rests.) Toilet Transfers FIM Score 5. Supervision (Needs supervision or cueing.) Patient transferred to: Shower Shower Transfers FIM Score 4. Minimal Assistance (Patient = 75% or more. Needs touching.) Locomotion- Stairs Device used on Stairs Handrail/s Number of Stairs Ascended/ 2 Descended Patient used handrail/support: Yes Stairs FIM Score 1. Total Assistance (Pt. < 25%, 2 person assist, or <4 stairs.) Locomotion- walk/wheelchair Most Frequent Mode of Wheelchair Locomotion: Ambulation Distance 150 Walking FIM Score 2. Maximal Assistance (Patient = 25% or more. Minimum of 50 ft.) Wheelchair Propulsion Distance 250 Wheelchair FIM Score 6. Modified [place] (Wheels a minimum of 150 ft.) Eating Eating FIM Score 6. Modified [place] (Special consistency or uses device.) Dressing-Upper body Patient retrieves clothing Yes items: Patient applies/removes UE No prosthesis or orthosis: Upper Body Dressing FIM Score 6. Modified [place] (Needs equipment, velcro or pros./orth.) Dressing-lower body Patient retrieves clothing Yes items: Patient applies/removes LE Yes prosthesis or orthosis: Lower Body Dressing FIM Score 6. Modified [place] (Needs equipment, velcro or pros./orth.) - Labs CBC & Chem 7: 01/02/19 15:46 01/02/19 15:46 Labs: Laboratory Results - last 72 hr 12/29/18 12/30/18 12/30/18 23:43 05:47 05:47 WBC 8.4 RBC 3.00 L Hgb 9.8 L Hct 29.2 L MCV 97 H MCH 33 H MCHC 34 RDW 15.1 Plt Count 308 Sodium 140 Potassium 4.1 Chloride 98.5 Carbon Dioxide 33 H Anion Gap 13 BUN 23 H Creatinine 4.2 H Estimated GFR 15 BUN/Creatinine Ratio 5 Glucose 152 H POC Glucose 186 H Calcium 9.2 Random Vancomycin 12/31/18 12/31/18 12/31/18 05:26 05:26 05:26 WBC 9.4 RBC 3.06 L Hgb 10.0 L Hct 29.8 L MCV 98 H MCH 33 H MCHC 34 RDW 15.4 H Plt Count 316 Sodium 137 Potassium 4.9 Chloride 95.9 L Carbon Dioxide 29 Anion Gap 17 BUN 35 H Creatinine 6.1 H Estimated GFR 10 BUN/Creatinine Ratio 6 Glucose 195 H POC Glucose Calcium 9.5 Random Vancomycin 22.5 01/01/19 01/01/19 01/01/19 06:36 06:36 07:37 WBC 8.8 RBC 2.99 L Hgb 10.0 L Hct 29.2 L MCV 98 H MCH 33 H MCHC 34 RDW 15.8 H Plt Count 303 Sodium 135 L Potassium 4.2 Chloride 94.0 L Carbon Dioxide 30 Anion Gap 15 BUN 21 H Creatinine 4.4 H Estimated GFR 14 BUN/Creatinine Ratio 5 Glucose 344 H POC Glucose 334 H Calcium 9.2 Random Vancomycin Assessment and Plan Status post left BKA: Monitor residual limb for any signs of infection are skin breakdown. We'll also monitor for any phantom sensation or phantom pain which the patient denies at this time. Patient does have sharp postsurgical pain which is still present and poorly controlled. Encouraged patient to maintain the stump protector in order to protect the residual limb. We'll work with the patient to develop his ability to improve his independent mobility, range of motion and strengthening of the residual limb in order to be an acceptable candidate for a prosthesis. Have discussed with the patient the increased level of work that is required to ambulate with a prosthetic limb and will encourage him to continue with maintaining his cardiovascular health. Start vanc for wound infection ppx in residual limb. Diabetes type 1: Maintain the patient on his insulin pump. He is able to maintain his sugars reasonably at home and should be able to continue with that here. We will spot check him with our meter as well to ensure that he is not getting hyper-or hypoglycemic. Hypertension continue medications and adjust as needed for normotension. Slightly elevated in mornings, monitor End-stage renal disease on hemodialysis: Thursday. Medications have been started from previous hospital. Have consulted nephrology for management of end-stage renal disease and hemodialysis. CAD: Continue aspirin, monitor for any further signs of cardiac issues. Patient is s/p CABG Constipation: Problem for the patient at home as well, he states that he does take lactulose typically with every meal. Have order that for him here as well with hold orders. KUB showed significant stool burden. Several BMs. De- escalate as needed. Z73.6 ADL dysfunction: OT will work on improving ability to perform ADLs (including assistive devices) to increase independence and decrease caregiver burden and improve functional transfers and mobility training. R26.2 Difficulty walking: PT will work on gait training and proper use of assistive devices and advance as appropriate to use of stairs and outside ambulation on uneven surfaces. R26.81 Unsteadiness on feet: PT will work on improving static and dynamic sitting and standing balance as well as proper use of assistive devices to decrease risk of falls. R26.89 Abnormality of gait: PT will work to improve safety and efficiency of gait through neuromotor training and gait training along with instruction on proper use of assistive devices. M62.81 Muscle weakness: PT & OT will work on strengthening exercises to improve functional strength including mixture of closed and open kinetic chain exercises. R53.81 Debility: PT & OT will work on improving overall functional status to improve participation with ADLs, mobility and social involvement. R53.83 Fatigue: PT & OT will work on improving endurance through aerobic exercises and therapeutic activity while monitoring patients tolerance for activity and vital signs as needed. DVT ppx: Heparin Pain: Continue physical modalities in therapy and pain medications as needed to achieve functional pain control. Increase pain med frequency Sleep: Monitor and address as needed. Bowel: Monitor and address as needed. Appetite: Monitor and address as needed. Discharge planning: Pending therapy progress and care plan meeting. Will continue discussion with therapy team, SW, patient and family. Plan to discharge 01/05 with w/c, 3 in1 Restrictions/ Precautions: Falls WB status: FWB Functional Hx: ADLs: Independent Cognition: Independent Mobility: No AD Barriers to Discharge: Decreased mobility and ability to perform self care, balance deficits, weakness, poorly controlled pain, constipation Estimated Length of Stay: 1418 days Discharge Destination: Home with family
[2019-01-01] MEDS: [UNRECOGNIZED DRUG - OTHER] SUB-Q SCH ×3 (08:15→16:10)
[2019-01-01] MEDS: CEPHULAC PO SCH ×3 (09:16→21:47)
[2019-01-01] MEDS: PROTONIX PO SCH (09:20)
[2019-01-01] MEDS: SENOKOT PO SCH ×2 (09:24→21:46)
[2019-01-01] MEDS: ROCALTROL PO SCH (09:24)
[2019-01-01] MEDS: ZINC SULFATE PO SCH (09:24)
[2019-01-01] MEDS: IMDUR PO SCH (09:24)
[2019-01-01] MEDS: VITAMIN C PO SCH (09:25)
[2019-01-01] MEDS: HALFPRIN EC PO SCH (09:25)
[2019-01-01] MEDS: FOSRENOL PO SCH ×3 (09:25→16:11)
[2019-01-01] MEDS: Renal Caps PO SCH (09:25)
[2019-01-01] MEDS: NORVASC PO SCH (09:25)
[2019-01-01] MEDS: MIRALAX 3350 PO PRN (21:52)
[2019-01-02] MEDS: [UNRECOGNIZED DRUG - OTHER] SUB-Q SCH ×5 (00:14→22:02)
[2019-01-02] MEDS: HEPARIN SUB-Q SCH ×4 (07:31→22:01)
[2019-01-02] MEDS: VITAMIN C PO SCH (09:20)
[2019-01-02] MEDS: NORVASC PO SCH (09:20)
[2019-01-02] MEDS: Renal Caps PO SCH (09:20)
[2019-01-02] MEDS: ZINC SULFATE PO SCH (09:20)
[2019-01-02] MEDS: PROTONIX PO SCH (09:20)
[2019-01-02] MEDS: ROCALTROL PO SCH (09:20)
[2019-01-02] MEDS: FOSRENOL PO SCH ×3 (09:20→17:46)
[2019-01-02] MEDS: HALFPRIN EC PO SCH (09:20)
[2019-01-02] MEDS: CEPHULAC PO SCH ×3 (09:21→22:01)
[2019-01-02] MEDS: IMDUR PO SCH (09:25)
[2019-01-02] MEDS: SENOKOT PO SCH ×2 (09:25→22:01)
[2019-01-02 16:16] LABS: Hemoglobin 9.7 gm/dl (11.8-15.2); Mean Corpuscular HGB Conc 36 % (32-34); Mean Corpuscular Volume 97 fl (84-94); Platelet Count 326 K/mm3 (140-440); Red Blood Count 2.79 M/mm3 (3.65-5.03); Red Cell Distribution Width 15.7 % (13.2-15.2)
[2019-01-02 16:30] LABS: Calcium 9.5 mg/dL (8.4-10.2)
[2019-01-03] MEDS: HEPARIN SUB-Q SCH ×3 (06:26→21:06)
[2019-01-03] MEDS: FOSRENOL PO SCH ×3 (08:27→17:50)
[2019-01-03] MEDS: [UNRECOGNIZED DRUG - OTHER] SUB-Q SCH ×4 (08:28→21:06)
[2019-01-03] MEDS: SENOKOT PO SCH ×3 (08:28→21:06)
[2019-01-03] MEDS: VITAMIN C PO SCH (08:28)
[2019-01-03] MEDS: NORVASC PO SCH (08:28)
[2019-01-03] MEDS: ROCALTROL PO SCH (08:28)
[2019-01-03] MEDS: Renal Caps PO SCH (08:28)
[2019-01-03] MEDS: IMDUR PO SCH (08:28)
[2019-01-03] MEDS: HALFPRIN EC PO SCH (08:28)
[2019-01-03] MEDS: ZINC SULFATE PO SCH (08:28)
[2019-01-03] MEDS: PROTONIX PO SCH (08:28)
[2019-01-03] MEDS: CEPHULAC PO SCH ×3 (08:29→21:06)
[2019-01-03 10:38] LABS: Hematocrit 32.6 % (35.5-45.6); Hemoglobin 10.9 gm/dl (11.8-15.2); Mean Corpuscular HGB Conc 34 % (32-34); Mean Corpuscular Volume 98 fl (84-94); Platelet Count 371 K/mm3 (140-440); Red Blood Count 3.32 M/mm3 (3.65-5.03); Red Cell Distribution Width 15.9 % (13.2-15.2)
--- NOTE | 2019-01-03 11:31 | Progress Note ---
Subjective Date of service: 01/03/19 Principal diagnosis: Left BKA Interval history: 58-year-old gentleman with a recent history of left great toe amputation was discharged home with IV antibiotics. Developed worsening infection and upon evaluation at the ER was admitted for further treatment of the infection with more antibiotics. Vascular surgery was consulted and after further evaluation recommended BKA due to gangrenous changes and poor vascular supply. He was evaluated by therapy and found to need acute inpatient rehabilitation in order to facilitate a safe discharge home with the best functional improvement possible. He will need a follow-up appointment with his vascular surgeon in the next week or so. Pain is poorly controlled and the patient states that he was on IV pain medications up until time of discharge. Informed him that he will be on oral pain medications here and that he should've been transitioned to oral pain medications before he was transferred for rehabilitation. We'll monitor his pain level and treat appropriately he is currently taking Dilaudid by mouth. Patient also states that he is having significant nausea without vomiting. In going over his medications it also appears that he has chronic constipation at home for which he does take lactulose on a daily basis with each meal. After the patient was cleared medically he was transferred for further rehabilitation. Patient is participating in therapy and making reasonable progress. Taking rest breaks as needed. No N/V this AM. +BM. I was called yesterday and told that the patient wanted to go home immediately. He was able to calm down and remained continue with therapy. Today he states that he is just going stir crazy and he's been in the hospital too long. He wants to go home tomorrow morning. We will make arrangements to discharge him one day early. Pain better controlled and less frequent, he still describes the pain as sharp in nature with an occasional feeling of an electrical shock, improved with medication. May need low dose gabapentin if this worsens. Denies palpitations, dyspnea, cough, weakness, or joint pain. Cont to monitor for phantom pain. Cont Vanc on HD days until 01/10. WBC improved, afebrile, no signs of infection. Plan to d/c Thursday. We will notify Dialysis center of early discharge, Rx for vanc sent. All records, vitals, labs and medications were reviewed. No other issues per patient, nursing or therapy. Objective - Exam Narrative Exam: MUSCULOSKELETAL SPECIALTY EXAM CONSTITUTIONAL: Well developed, well nourished, appropriately groomed EENT: EOMI. Hearing intact to soft voice RESPIRATORY: Clear to auscultation bilaterally, no increased work of breathing CARDIOVASCULAR: Regular Rate/ Rhythm, no swelling, edema or tenderness in BUE or BLE. All extremities warm. GI: + bowel sounds, soft, NTTP, nondistended. INTEGUMENTARY: Normal, no lesion, rash, masses or bruising noted in extremities except for left BKA which has sutures and pao in place. MUSCULOSKELETAL: BUE and BLE normal without defect, crepitus, subluxation, effusion, arthritic changes or TTP except for left BKA. BUE 4+/5, good ROM, with normal tone. RLE 4+/5 good ROM, with normal tone. LLE is reduced range of motion and strength primarily due to pain. NEURO: CN 2-12 grossly intact. Sensation intact in all extremities. No tremor noted in 4 extremities. POSTURE and GAIT: Sitting posture good. Balance appears reasonable. Gait with RW and hops progressing. Doing well with transfers PSYCH: Alert, oriented x3, affect appears normal. Insight appears intact. - Constitutional Vitals: Vital Signs - 12hr 01/03/19 01/03/19 01/03/19 01:12 04:37 07:21 Temperature 36.8 C 36.6 C 36.8 C Pulse Rate 76 86 87 Respiratory 18 18 20 Rate Blood Pressure 131/47 139/49 Blood Pressure 126/46 [Left] O2 Sat by Pulse 96 98 97 Oximetry - Allied health notes Allied health notes reviewed: nursing, PT, OT FIMS assessment as documented by PT/OT/ST: Grooming Patient cleans teeth/dentures: Yes Patient brooks/brushes hair: Yes Patient washes, rinses and Yes dries face: Patient washes, rinses and Yes dries hands: Patient shaves: Yes Patient applies make-up: No Patient performs (no make-up/ 4/4 (100%) shaving): Patient performs (w/ make-up/ 5/5 (100%) shaving): Grooming FIM Score 5. Supervision ([place] applies toothpaste or opens containers.) Toileting Toileting Device Commode over Toilet Patient able to: Adjust clothes before,Clean self,Adjust clothes after Patient able to perform: 3/3 (100%) Toileting FIM Score 5. Supv./Set-Up (Needs stand-by, set-up, applying prosth/orth.) Social interaction/Memory/Problem solving Social Interaction FIM Score 6. Mod. [place] (Mostly appropriate. May need meds. No supv.) Memory FIM Score 6. Modified [place](Mild difficulty remembering people/routines.) Problem Solving FIM Score 6. Mod. [place] (Mild difficulty or needs more time w/ complex.) Transfers Mode of Locomotion: Wheelchair Bed/Chair/Wheelchair Transfers 5. Supervision (Needs supv. or set-up for FIM Score sliding board, foot rests.) Toilet Transfers FIM Score 5. Supervision (Needs supervision or cueing.) Patient transferred to: Shower Shower Transfers FIM Score 4. Minimal Assistance (Patient = 75% or more. Needs touching.) Locomotion- Stairs Device used on Stairs Handrail/s Number of Stairs Ascended/ 2 Descended Patient used handrail/support: Yes Stairs FIM Score 1. Total Assistance (Pt. < 25%, 2 person assist, or <4 stairs.) Locomotion- walk/wheelchair Most Frequent Mode of Wheelchair Locomotion: Ambulation Distance 150 Walking FIM Score 2. Maximal Assistance (Patient = 25% or more. Minimum of 50 ft.) Wheelchair Propulsion Distance 250 Wheelchair FIM Score 6. Modified [place] (Wheels a minimum of 150 ft.) Eating Eating FIM Score 6. Modified [place] (Special consistency or uses device.) Dressing-Upper body Patient retrieves clothing Yes items: Patient applies/removes UE No prosthesis or orthosis: Upper Body Dressing FIM Score 6. Modified [place] (Needs equipment, velcro or pros./orth.) Dressing-lower body Patient retrieves clothing Yes items: Patient applies/removes LE Yes prosthesis or orthosis: Lower Body Dressing FIM Score 6. Modified [place] (Needs equipment, velcro or pros./orth.) - Labs CBC & Chem 7: 01/03/19 10:19 01/03/19 10:19 Labs: Laboratory Results - last 72 hr 01/01/19 01/01/19 01/01/19 06:36 06:36 07:37 WBC 8.8 RBC 2.99 L Hgb 10.0 L Hct 29.2 L MCV 98 H MCH 33 H MCHC 34 RDW 15.8 H Plt Count 303 Sodium 135 L Potassium 4.2 Chloride 94.0 L Carbon Dioxide 30 Anion Gap 15 BUN 21 H Creatinine 4.4 H Estimated GFR 14 BUN/Creatinine Ratio 5 Glucose 344 H POC Glucose 334 H Calcium 9.2 01/02/19 01/02/19 01/02/19 15:46 15:46 22:02 WBC 9.3 RBC 2.79 L Hgb 9.7 L Hct 27.0 L MCV 97 H MCH 35 H MCHC 36 H RDW 15.7 H Plt Count 326 Sodium 135 L Potassium 5.0 Chloride 94.9 L Carbon Dioxide 28 Anion Gap 17 BUN 48 H Creatinine 6.9 H D Estimated GFR 8 BUN/Creatinine Ratio 7 Glucose 168 H POC Glucose 186 H Calcium 9.5 01/03/19 01/03/19 10:19 10:19 WBC 9.1 RBC 3.32 L Hgb 10.9 L Hct 32.6 L MCV 98 H MCH 33 H MCHC 34 RDW 15.9 H Plt Count 371 Sodium 138 Potassium 5.0 Chloride 95.3 L Carbon Dioxide 25 Anion Gap 23 BUN 56 H Creatinine 7.6 H Estimated GFR 7 BUN/Creatinine Ratio 7 Glucose 223 H POC Glucose Calcium 10.0 Assessment and Plan Status post left BKA: Monitor residual limb for any signs of infection are skin breakdown. We'll also monitor for any phantom sensation or phantom pain which the patient denies at this time. Patient does have sharp postsurgical pain which is still present and poorly controlled. Encouraged patient to maintain the stump protector in order to protect the residual limb. We'll work with the patient to develop his ability to improve his independent mobility, range of motion and strengthening of the residual limb in order to be an acceptable candidate for a prosthesis. Have discussed with the patient the increased level of work that is required to ambulate with a prosthetic limb and will encourage him to continue with maintaining his cardiovascular health. Start vanc for wound infection ppx in residual limb. Diabetes type 1: Maintain the patient on his insulin pump. He is able to maintain his sugars reasonably at home and should be able to continue with that here. We will spot check him with our meter as well to ensure that he is not getting hyper-or hypoglycemic. Hypertension continue medications and adjust as needed for normotension. Impr himanshu, monitor End-stage renal disease on hemodialysis: Thursday. Medications have been started from previous hospital. Have consulted nephrology for management of end-stage renal disease and hemodialysis. CAD: Continue aspirin, monitor for any further signs of cardiac issues. Patient is s/p CABG Constipation: Problem for the patient at home as well, he states that he does take lactulose typically with every meal. Have order that for him here as well with hold orders. KUB showed significant stool burden. Several BMs. De- escalate as needed. Z73.6 ADL dysfunction: OT will work on improving ability to perform ADLs (including assistive devices) to increase independence and decrease caregiver burden and improve functional transfers and mobility training. R26.2 Difficulty walking: PT will work on gait training and proper use of assistive devices and advance as appropriate to use of stairs and outside ambulation on uneven surfaces. R26.81 Unsteadiness on feet: PT will work on improving static and dynamic sitting and standing balance as well as proper use of assistive devices to decrease risk of falls. R26.89 Abnormality of gait: PT will work to improve safety and efficiency of gait through neuromotor training and gait training along with instruction on proper use of assistive devices. M62.81 Muscle weakness: PT & OT will work on strengthening exercises to improve functional strength including mixture of closed and open kinetic chain exercises. R53.81 Debility: PT & OT will work on improving overall functional status to improve participation with ADLs, mobility and social involvement. R53.83 Fatigue: PT & OT will work on improving endurance through aerobic exercises and therapeutic activity while monitoring patients tolerance for activity and vital signs as needed. DVT ppx: Heparin Pain: Continue physical modalities in therapy and pain medications as needed to achieve functional pain control. Increase pain med frequency Sleep: Monitor and address as needed. Bowel: Monitor and address as needed. Appetite: Monitor and address as needed. Discharge planning: Pending therapy progress and care plan meeting. Will continue discussion with therapy team, SW, patient and family. Plan to discharge 01/04 with w/c, 3 in1 Restrictions/ Precautions: Falls WB status: FWB Functional Hx: ADLs: Independent Cognition: Independent Mobility: No AD Barriers to Discharge: Decreased mobility and ability to perform self care, balance deficits, weakness, poorly controlled pain, constipation Estimated Length of Stay: 1418 days Discharge Destination: Home with family
--- NOTE | 2019-01-03 16:20 | Progress Note ---
Assessment and Plan - Patient Problems (1) End stage renal disease Current Visit: Yes Status: Acute Plan to address problem: End-stage renal disease dialysis AV fistula continue dialysis Continue Thursday (2) Hyponatremia Current Visit: Yes Status: Acute Plan to address problem: Hyponatremia : - 2/2 free water excess : - free water restriction - continue HD. (3) Hypertension Current Visit: Yes Status: Acute Qualifiers: Hypertension type: essential hypertension Plan to address problem: Hypertension controlled Ensure medications Monitor blood pressure. (4) Diabetes mellitus Current Visit: Yes Status: Acute Qualifiers: Diabetes mellitus complication detail: with other circulatory complications Plan to address problem: Diabetes mellitus type 2 status below knee amputation ensure medications Monitor fingerstick. Subjective Principal diagnosis: Left BKA Interval history: 58-year-old gentleman with metastatic renal disease on hemodialysis Thursday Status post amputation below the knee amputation possible underlying history of diabetes and hypertension He is undergoing rehab. Denies any orthopnea PND Denies any fevers or chills I attest I saw the patient on dialysis He is being discharged tomorrow Objective - Vital Signs Vital signs: Vital Signs - 12hr 01/03/19 01/03/19 01/03/19 04:37 07:21 13:30 Temperature 97.8 F 98.2 F 97.7 F Pulse Rate 86 87 81 Respiratory 18 20 18 Rate Blood Pressure 131/47 139/49 117/54 O2 Sat by Pulse 98 97 Oximetry 01/03/19 01/03/19 01/03/19 13:39 13:45 14:00 Temperature Pulse Rate 76 78 73 Respiratory Rate Blood Pressure 125/50 129/54 125/55 O2 Sat by Pulse Oximetry 01/03/19 01/03/19 14:15 14:30 Temperature Pulse Rate 76 75 Respiratory Rate Blood Pressure 109/48 120/51 O2 Sat by Pulse Oximetry - General Appearance General appearance: well-developed, well-nourished EENT: ATNC, PERRL, mucous membranes moist Neck: no JVD Respiratory: Present: Clear to Ascultation Cardiology: regular, S1S2 Gastrointestinal: normal, normoactive bowel sounds Integumentary: no rash Neurologic: no focal deficit, CN 3-12 intact Psychiatric: mood/affect appropriate - Lab 01/03/19 10:19 01/03/19 10:19 Most recent lab results Calcium 10.0 mg/dL (8.4-10.2) 01/03/19 10:19 - Imaging Chest x-ray: image reviewed (I reviewed chest x-ray without edema) Medications & Allergies - Medications Allergies/Adverse Reactions: Allergies morphine Allergy (Verified 12/23/18 14:00) Nausea &VOMITING oxycodone Allergy (Verified 12/23/18 14:00) Nausea & VOMITING Home Medications: Home Medications Medication Instructions Recorded Confirmed Last Taken Type Ascorbic Acid [Vitamin C] 250 mg PO QDAY 12/24/18 12/24/18 Unknown History Bimatoprost [Lumigan] 1 drop OU HS 12/24/18 12/24/18 Unknown History Calcitriol [Rocaltrol] 0.25 mcg PO DAILY 12/24/18 12/24/18 Unknown History ISOSORBIDE MONOnitrate [Imdur ER] 60 mg PO DAILY 12/24/18 12/24/18 Unknown History Lactulose 20 gram PO TID 12/24/18 12/24/18 Unknown History Lanthanum Carbonate [Fosrenol] 1,000 mg PO DAILY 12/24/18 12/24/18 Unknown History Latanoprost 0.005% 1 drop OU HS 12/24/18 12/24/18 Unknown History Losartan [Cozaar] 25 mg PO DAILY 12/24/18 12/24/18 Unknown History Pantoprazole [Protonix] 40 mg PO QDAY 12/24/18 12/24/18 Unknown History Prochlorperazine [Compazine] 1 tab PO TID PRN 12/24/18 12/24/18 Unknown History Rivaroxaban [Xarelto] 2.5 mg PO DAILY 12/24/18 12/24/18 Unknown History Senna 1 tab PO BID 12/24/18 12/24/18 Unknown History Zinc Sulfate 1 cap PO DAILY 12/24/18 12/24/18 Unknown History amLODIPine [Norvasc] 10 mg PO DAILY 12/24/18 12/24/18 Unknown History Active Medications: Generic Name Dose Route Start Last Admin Trade Name Freq PRN Reason Stop Dose Admin Acetaminophen 650 mg 12/23/18 15:34 Tylenol PO Q6H PRN Non Cardiac Pain or Temp>100.5 Amlodipine Besylate 10 mg 12/24/18 08:00 01/03/19 08:28 Norvasc PO 10 mg QDAY ESTELA Administration Ascorbic Acid 250 mg 12/24/18 08:00 01/03/19 08:28 Vitamin C PO 250 mg QDAY ESTELA Administration Aspirin 81 mg 12/24/18 08:00 01/03/19 08:28 Halfprin Ec PO 81 mg QDAY ESTELA Administration Bisacodyl 10 mg 12/23/18 15:34 Dulcolax [place] QDAY PRN Constipation Calcitriol 0.25 mcg 12/24/18 08:00 01/03/19 08:28 Rocaltrol PO 0.25 mcg QDAY ESTELA Administration Dextrose 50 ml 12/23/18 15:18 D50w (25gm) Syringe IV PRN PRN Hypoglycemia Epoetin Zack 4,000 unit 12/24/18 09:00 12/31/18 19:33 Procrit IV 4,000 unit ALFRED PRN Administration hemodialysis Heparin Sodium (Porcine) 5,000 unit 12/23/18 22:00 01/03/19 14:10 Heparin SUB-Q Not Given Q8HR [facility] Heparin Sodium (Porcine) 2,000 unit 12/24/18 09:00 12/27/18 16:08 Heparin 10,000 Units/10 Ml IV 2,000 unit ALFRED PRN Administration hemodialysis Heparin Sodium (Porcine) 400 unit 12/24/18 09:00 12/27/18 16:12 Heparin 10,000 Units/10 Ml IV 400 unit ALFRED PRN Administration hemodialysis Hydromorphone HCl 2 mg 12/24/18 12:41 12/28/18 22:23 Dilaudid PO 2 mg Q4H PRN Administration Pain , Severe (7-10) Sodium Chloride 100 mls @ 999 mls/hr 12/24/18 09:00 Nacl 0.9% IV ALFRED PRN Hypotension Vancomycin HCl 1 gm in 250 mls @ 167.007 mls/hr 12/29/18 18:00 12/31/18 22:29 Vancomycin/Ns 1 Gm/250 Ml IV 01/10/19 19:30 167.007 mls/hr [email or web address] ESTELA Administration Isosorbide Mononitrate 60 mg 12/24/18 08:00 01/03/19 08:28 Imdur PO 60 mg QDAY [facility] Administration Lactulose 20 gm 12/23/18 20:00 01/03/19 14:02 Cephulac PO Not Given TID ESTELA Lanthanum Carbonate 1,000 mg 12/23/18 17:00 01/03/19 12:34 Fosrenol PO 1,000 mg TIDWM ESTELA Administration Miscellaneous Medication 0 pump 12/23/18 22:00 01/03/19 12:48 Nph SUB-Q Not Given ACHS ESTELA Multivit/Ca Carb/B Cmplx/FA/Prenat 1 cap 12/31/18 16:00 01/03/19 08:28 Renal Caps PO 1 cap QDAY ESTELA Administration Ondansetron HCl 8 mg 12/25/18 17:44 12/29/18 08:24 Zofran Odt PO 8 mg Q8H PRN Administration Nausea And Vomiting Pantoprazole Sodium 40 mg 12/24/18 08:00 01/03/19 08:28 Protonix PO 40 mg QDAY ESTELA Administration Paricalcitol 1 mcg 12/24/18 09:00 12/31/18 19:33 Zemplar IV 1 mcg ALFRED PRN Administration hemodialysis Polyethylene Glycol 17 gm 12/23/18 15:34 01/01/19 21:52 Miralax 3350 PO 17 gm QDAY PRN Administration Constipation Promethazine HCl 25 mg 12/25/18 17:52 12/30/18 08:15 Phenergan PO 25 mg Q6H PRN Administration Nausea And Vomiting Senna 8.6 mg 12/25/18 22:00 01/03/19 11:23 Senokot PO Not Given Q12H ESTELA Zinc Sulfate 220 mg 12/24/18 08:00 01/03/19 08:28 Zinc Sulfate PO 220 mg QDAY ESTELA Administration
[2019-01-03] MEDS: ZEMPLAR IV PRN (17:00)
[2019-01-03] MEDS: PROCRIT IV PRN (17:00)
[2019-01-03] MEDS: VANCOMYCIN/NS 1 GM/250 ML 1 GM/250 ML BAG IV SCH (17:51)
[2019-01-03] MEDS ORDERED: NACL 0.9 (PRIMING MACHINE ONLY DIALYSIS) MC ONE (18:01)
[2019-01-04] MEDS: HEPARIN SUB-Q SCH ×2 (05:13→14:41)
[2019-01-04] MEDS: [UNRECOGNIZED DRUG - OTHER] SUB-Q SCH ×2 (07:30→12:00)
[2019-01-04] MEDS: FOSRENOL PO SCH ×2 (08:33→13:56)
[2019-01-04] MEDS: NORVASC PO SCH (08:33)
[2019-01-04] MEDS: HALFPRIN EC PO SCH (08:34)
[2019-01-04] MEDS: VITAMIN C PO SCH (08:34)
[2019-01-04] MEDS: ZINC SULFATE PO SCH (08:34)
[2019-01-04] MEDS: ROCALTROL PO SCH (08:34)
[2019-01-04] MEDS: Renal Caps PO SCH (08:35)
[2019-01-04] MEDS: SENOKOT PO SCH ×2 (08:35→11:00)
[2019-01-04] MEDS: CEPHULAC PO SCH ×2 (08:39→14:41)
[2019-01-04] MEDS: IMDUR PO SCH (08:39)
[2019-01-04] MEDS: PROTONIX PO SCH (08:40)
--- NOTE | 2019-01-04 10:32 | Discharge Summary ---
Providers - Providers Date of Admission: 12/23/18 15:18 Date of discharge: 01/04/19 Attending physician: FELI PEDRAZA III, MD 12/23/18 15:18 Consult to Physician [CONS] Routine Comment: Consulting Provider: LINDSEY FONTENOT Physician Instructions: Reason For Exam: ESRD on HD Occupational Therapy Evaluate and Treat [CONS] Routine Comment: Reason For Exam: ADL dysfunction Physical Therapy Evaluation and Treat [CONS] Routine Comment: Reason For Exam: Mobility Dysfunction 12/23/18 15:22 Consult to Case Management [CONS] Routine Services Needed at Discharge: Home Health Services Notified:: yes Was contact made?: Yes Comment:: order given to CM 12/23/18 15:43 Consult to Wound/ET Nurse [CONS] Routine Reason For Exam: wound eval Primary care physician: COTTON CONVERTER Hospitalization Reason for admission: Left BKA Condition: Good Hospital course: 58-year-old gentleman with a recent history of left great toe amputation was discharged home with IV antibiotics. Developed worsening infection and upon evaluation at the ER was admitted for further treatment of the infection with m ore antibiotics. Vascular surgery was consulted and after further evaluation recommended BKA due to gangrenous changes and poor vascular supply. He was evaluated by therapy and found to need acute inpatient rehabilitation in order to facilitate a safe discharge home with the best functional improvement possible. He will need a follow-up appointment with his vascular surgeon in the next week or so. Pain is poorly controlled and the patient states that he was on IV pain medications up until time of discharge. Informed him that he will be on oral pain medications here and that he should've been transitioned to oral pain medications before he was transferred for rehabilitation. We'll monitor his pain level and treat appropriately he is currently taking Dilaudid by mouth. Patient also states that he is having significant nausea without vomiting. In going over his medications it also appears that he has chronic constipation at home for which he does take lactulose on a daily basis with each meal. After the patient was cleared medically he was transferred for further rehabilitation. Patient participated in therapy and made reasonable progress. He requested to discharge early. We will make arrangements to discharge him one day early. At the time of discharge the patient was modified independent for ambulation with a rolling walker for household distances. He was modified independent with ADLs. Pain better controlled and less frequent, he still describes the pain as sharp in nature with an occasional feeling of an electrical shock, improved with medication. May need low dose gabapentin if this worsens. Hypertension and diabetes were fairly well controlled on the patient's home regimen. Cont Vanc on HD days until 01/10. WBC improved, afebrile, no signs of infection. We will notify Dialysis center of early discharge, Rx for vanc sent. We have made arrangements and the patient home with home health nursing and therapy. After the patient has completed his antibiotics and his wound has healed well enough with the pao be removed and the surgeon is okay with a embroiderer hand being placed, we would recommend placement of the embroiderer hand and fitting of the prosthesis when reasonable. Once he has his prosthesis we would recommend follow-up with outpatient therapy for a short course of ambulatory training with the prosthesis. Disposition: DC/TX- HOME UNDER HOME HL Time spent for discharge: > 30 mins - Discharge Diagnoses (1) Status post below knee amputation of left lower extremity Status: Acute (2) Diabetes Status: Chronic Qualifiers: Diabetes mellitus type: type 1 Diabetes mellitus complication status: with kidney complications Diabetes mellitus complication detail: with chronic kidney disease Chronic kidney disease stage: on chronic dialysis Qualified Code(s): E10.22 - Type 1 diabetes mellitus with diabetic chronic kidney disease; N18.6 - End stage renal disease; Z99.2 - Dependence on renal dialysis (3) End stage renal disease Status: Chronic (4) Hypertension Status: Chronic Qualifiers: Hypertension type: essential hypertension Qualified Code(s): I10 - Essential (primary) hypertension Core Measure Documentation - Palliative Care Palliative Care/ Comfort Measures: Not Applicable - Core Measures Any of the following diagnoses?: none Exam - Physical Exam Narrative exam: MUSCULOSKELETAL SPECIALTY EXAM CONSTITUTIONAL: Well developed, well nourished, appropriately groomed EENT: EOMI. Hearing intact to soft voice RESPIRATORY: Clear to auscultation bilaterally, no increased work of breathing CARDIOVASCULAR: Regular Rate/ Rhythm, no swelling, edema or tenderness in BUE or BLE. All extremities warm. GI: + bowel sounds, soft, NTTP, nondistended. INTEGUMENTARY: Normal, no lesion, rash, masses or bruising noted in extremities except for left BKA which has sutures and pao in place. MUSCULOSKELETAL: BUE and BLE normal without defect, crepitus, subluxation, effusion, arthritic changes or TTP except for left BKA. BUE 4+/5, good ROM, with normal tone. RLE 4+/5 good ROM, with normal tone. LLE is reduced range of motion and strength primarily due to pain. NEURO: CN 2-12 grossly intact. Sensation intact in all extremities. No tremor noted in 4 extremities. POSTURE and GAIT: Sitting posture good. Balance appears reasonable. Gait with RW. Doing well with transfers PSYCH: Alert, oriented x3, affect appears normal. Insight appears intact. - Constitutional Vitals: Temp Pulse Resp BP Pulse Ox 36.7 C 89 20 131/54 100 01/04/19 07:30 01/04/19 08:39 01/04/19 07:30 01/04/19 08:39 01/04/19 07:30 Plan Activity: advance as tolerated, up only with assistance, fall precautions Diet: renal (/diabetic) Wound: keep clean and dry (follow up with surgeon for staple removal) Special Instructions: record daily weights, record daily BP diary, record blood sugar diary, physical therapy, occupational therapy, home health RN Durable Medical Equipment Needed Upon Discharge: Wheelchair (short-term until pr osthesis is available) Care Plan Goals: Continue improvement with mobility. Patient is doing fairly well in this respect with out his prosthesis. Monitor for falls. Once the patient has received his prosthesis will need to follow-up with outpatient physical therapy and his general internal medicine physician for further guidance on ambulation with his new prosthesis. Plan of Treatment: Continue vancomycin on dialysis days as ordered. Monitor wound for any signs of infection. Follow-up with vascular surgeon for staple removal, wound monitoring, and to receive the okay to proceed with embroiderer hand placement and prosthesis. Health Concerns: Diabetes type 1 fairly well controlled with insulin pump and knowledgeable patient. Hypertension well controlled with current medications. Chronic constipation seems to be an issue for the patient and he frequently takes lactulose at home. May benefit from GI referral as outpatient. Follow up with: PRIMARY CARE, [Primary Care Provider] - 7 Days STEVE PERES MD [Staff Physician] - 7 Days Prescriptions: Lactulose [Cephulac] 20 gm PO TID 15 Days oral.liqd HYDROmorphone [Dilaudid] 2 mg PO Q4H PRN #30 tablet PRN Reason: Pain , Severe (7-10) Lanthanum Carbonate [Fosrenol] 1,000 mg PO TIDWM #90 tab.chew Aspirin EC [Halfprin EC] 81 mg PO QDAY #30 tablet ISOSORBIDE MONOnitrate [Imdur ER] 60 mg PO QDAY #30 tablet Polyethylene Glycol 3350 [Miralax 3350] 17 gm PO QDAY PRN 30 Days powd.pack PRN Reason: Constipation amLODIPine [Norvasc] 10 mg PO QDAY #30 tablet Pantoprazole [Protonix TAB] 40 mg PO QDAY #30 tablet Calcitriol [Rocaltrol] 0.25 mcg PO QDAY #30 capsule Sennosides Tab [Senokot] 8.6 mg PO Q12H #60 tablet Ascorbic Acid [Vitamin C] 250 mg PO QDAY #30 tablet Zinc Sulfate 220 mg PO QDAY #30 capsule
--- NOTE | 2019-01-04 12:02 | Progress Note ---
Assessment and Plan Impression: * End stage renal disease on HD MWF * s/p Left BKA * Type I DM * Peripheral artery disease * Hypertension * Anemia secondary to ESRD * Secondary hyperparathyroidism Plan: * Patient is s/p HD yesterday * No acute need for HD today. Continue MWF schedule * Abx arranged at [facility] stop date 01/10 * Stable for d/c from a renal standpoint Subjective Date of service: 01/04/19 Principal diagnosis: Left BKA Objective - Vital Signs Vital signs: Vital Signs - 12hr 01/04/19 01/04/19 01/04/19 00:08 05:32 07:30 Temperature 97.8 F 98.4 F 98.1 F Pulse Rate 88 88 89 Respiratory 18 17 20 Rate Blood Pressure 122/50 Blood Pressure 113/35 131/54 [Left] O2 Sat by Pulse 99 98 100 Oximetry 01/04/19 01/04/19 08:33 08:39 Temperature Pulse Rate 89 89 Respiratory Rate Blood Pressure 131/54 131/54 Blood Pressure [Left] O2 Sat by Pulse Oximetry - General Appearance General appearance: well-developed, well-nourished EENT: ATNC Respiratory: Present: Clear to Ascultation Cardiology: regular, S1S2 Gastrointestinal: normal, no tenderness, no distended Integumentary: no rash Musculoskeletal: other (left BKA) Psychiatric: cooperative - Lab 01/03/19 10:19 01/03/19 10:19 Most recent lab results Calcium 10.0 mg/dL (8.4-10.2) 01/03/19 10:19 Medications & Allergies - Medications Allergies/Adverse Reactions: Allergies morphine Allergy (Verified 12/23/18 14:00) Nausea &VOMITING oxycodone Allergy (Verified 12/23/18 14:00) Nausea & VOMITING Home Medications: Home Medications Medication Instructions Recorded Confirmed Last Taken Type Ascorbic Acid [Vitamin C] 250 mg PO QDAY #30 tablet 01/04/19 Unknown Rx Aspirin EC [Halfprin EC] 81 mg PO QDAY #30 tablet 01/04/19 Unknown Rx Calcitriol [Rocaltrol] 0.25 mcg PO QDAY #30 capsule 01/04/19 Unknown Rx Epoetin Zack 10,000 Unit [Procrit] 4,000 unit IV ALFRED PRN vial 01/04/19 Unknown Rx Folic Acid/Vit B Comp W-C [Renal 1 cap PO QDAY capsule 01/04/19 Unknown Rx Caps] HYDROmorphone [Dilaudid] 2 mg PO Q4H PRN #30 tablet 01/04/19 Unknown Rx ISOSORBIDE MONOnitrate [Imdur ER] 60 mg PO QDAY #30 tablet 01/04/19 Unknown Rx Lactulose [Cephulac] 20 gm PO TID 15 Days oral.liqd 01/04/19 Unknown Rx Lanthanum Carbonate [Fosrenol] 1,000 mg PO TIDWM #90 tab.chew 01/04/19 Unknown Rx Nph 0 pump SUB-Q ACHS 01/04/19 Unknown Rx Pantoprazole [Protonix TAB] 40 mg PO QDAY #30 tablet 01/04/19 Unknown Rx Paricalcitol [Zemplar] 1 mcg IV ALFRED PRN vial 01/04/19 Unknown Rx Polyethylene Glycol 3350 [Miralax 17 gm PO QDAY PRN 30 Days 01/04/19 Unknown Rx 3350] powd.pack Sennosides Tab [Senokot] 8.6 mg PO Q12H #60 tablet 01/04/19 Unknown Rx Zinc Sulfate 220 mg PO QDAY #30 capsule 01/04/19 Unknown Rx amLODIPine [Norvasc] 10 mg PO QDAY #30 tablet 01/04/19 Unknown Rx Active Medications: Generic Name Dose Route Start Last Admin Trade Name Freq PRN Reason Stop Dose Admin Acetaminophen 650 mg 12/23/18 15:34 Tylenol PO Q6H PRN Non Cardiac Pain or Temp>100.5 Amlodipine Besylate 10 mg 12/24/18 08:00 01/04/19 08:33 Norvasc PO 10 mg QDAY ESTELA Administration Ascorbic Acid 250 mg 12/24/18 08:00 01/04/19 08:34 Vitamin C PO 250 mg QDAY ESTELA Administration Aspirin 81 mg 12/24/18 08:00 01/04/19 08:34 Halfprin Ec PO 81 mg QDAY ESTELA Administration Bisacodyl 10 mg 12/23/18 15:34 Dulcolax [place] QDAY PRN Constipation Calcitriol 0.25 mcg 12/24/18 08:00 01/04/19 08:34 Rocaltrol PO 0.25 mcg QDAY ESTELA Administration Dextrose 50 ml 12/23/18 15:18 D50w (25gm) Syringe IV PRN PRN Hypoglycemia Epoetin Zack 4,000 unit 12/24/18 09:00 01/03/19 17:00 Procrit IV 4,000 unit ALFRED PRN Administration hemodialysis Heparin Sodium (Porcine) 5,000 unit 12/23/18 22:00 01/04/19 05:13 Heparin SUB-Q Not Given Q8HR ESTELA Heparin Sodium (Porcine) 2,000 unit 12/24/18 09:00 12/27/18 16:08 Heparin 10,000 Units/10 Ml IV 2,000 unit ALFRED PRN Administration hemodialysis Heparin Sodium (Porcine) 400 unit 12/24/18 09:00 12/27/18 16:12 Heparin 10,000 Units/10 Ml IV 400 unit ALFRED PRN Administration hemodialysis Hydromorphone HCl 2 mg 12/24/18 12:41 12/28/18 22:23 Dilaudid PO 2 mg Q4H PRN Administration Pain , Severe (7-10) Sodium Chloride 100 mls @ 999 mls/hr 12/24/18 09:00 Nacl 0.9% IV ALFRED PRN Hypotension Vancomycin HCl 1 gm in 250 mls @ 167.007 mls/hr 12/29/18 18:00 01/03/19 17:51 Vancomycin/Ns 1 Gm/250 Ml IV 01/10/19 19:30 167.007 mls/hr [email or web address] ESTELA Administration Isosorbide Mononitrate 60 mg 12/24/18 08:00 01/04/19 08:39 Imdur PO Not Given QDAY ESTELA Lactulose 20 gm 12/23/18 20:00 01/04/19 08:39 Cephulac PO Not Given TID ESTELA Lanthanum Carbonate 1,000 mg 12/23/18 17:00 01/04/19 08:33 Fosrenol PO 1,000 mg TIDWM ESTELA Administration Miscellaneous Medication 0 pump 12/23/18 22:00 01/03/19 21:06 Nph SUB-Q Not Given ACHS ESTELA Multivit/Ca Carb/B Cmplx/FA/Prenat 1 cap 12/31/18 16:00 01/04/19 08:35 Renal Caps PO 1 cap QDAY ESTELA Administration Ondansetron HCl 8 mg 12/25/18 17:44 12/29/18 08:24 Zofran Odt PO 8 mg Q8H PRN Administration Nausea And Vomiting Pantoprazole Sodium 40 mg 12/24/18 08:00 01/04/19 08:40 Protonix PO Not Given QDAY ESTELA Paricalcitol 1 mcg 12/24/18 09:00 01/03/19 17:00 Zemplar IV 1 mcg ALFRED PRN Administration hemodialysis Polyethylene Glycol 17 gm 12/23/18 15:34 01/01/19 21:52 Miralax 3350 PO 17 gm QDAY PRN Administration Constipation Promethazine HCl 25 mg 12/25/18 17:52 12/30/18 08:15 Phenergan PO 25 mg Q6H PRN Administration Nausea And Vomiting Senna 8.6 mg 12/25/18 22:00 01/04/19 08:35 Senokot PO 8.6 mg Q12H ESTELA Administration Zinc Sulfate 220 mg 12/24/18 08:00 01/04/19 08:34 Zinc Sulfate PO 220 mg QDAY ESTELA Administration
[2019-01-04 12:11] VITALS: BP 158/49
== END 2019-01-04 14:30 | disposition home health service (06) | DRG 299 ==
LOC: UNDOADMIN 13:56 → 3A 13:56 → 3B 15:18
PROVIDERS: ADMIT Physical Medicine & Rehabilitation; ATTEND Physical Medicine & Rehabilitation
PROC: 5A1D70Z Performance of Urinary Filtration, Intermittent, Less than 6 Hours Per Day (ICD-10-PCS; principal; 2018-12-24)
PROC: 5A1D70Z Performance of Urinary Filtration, Intermittent, Less than 6 Hours Per Day (ICD-10-PCS; 2018-12-27)
PROC: 5A1D70Z Performance of Urinary Filtration, Intermittent, Less than 6 Hours Per Day (ICD-10-PCS; 2018-12-29)
PROC: 5A1D70Z Performance of Urinary Filtration, Intermittent, Less than 6 Hours Per Day (ICD-10-PCS; 2018-12-31)
PROC: 5A1D70Z Performance of Urinary Filtration, Intermittent, Less than 6 Hours Per Day (ICD-10-PCS; 2019-01-03)
DX: E10.51 Type 1 diabetes mellitus with diabetic peripheral angiopathy without gangrene (principal); N18.6 End stage renal disease; E87.1 Hypo-osmolality and hyponatremia; I12.0 Hypertensive chronic kidney disease with stage 5 chronic kidney disease or end stage renal disease; N25.81 Secondary hyperparathyroidism of renal origin; E10.59 Type 1 diabetes mellitus with other circulatory complications; E10.22 Type 1 diabetes mellitus with diabetic chronic kidney disease; K59.00 Constipation, unspecified; I25.10 Atherosclerotic heart disease of native coronary artery without angina pectoris; R26.89 Other abnormalities of gait and mobility; Z96.41 Presence of insulin pump (external) (internal); D63.1 Anemia in chronic kidney disease; R53.81 Other malaise; Z95.1 Presence of aortocoronary bypass graft; Z89.519 Acquired absence of unspecified leg below knee; Z89.412 Acquired absence of left great toe; Z79.899 Other long term (current) drug therapy; Z90.49 Acquired absence of other specified parts of digestive tract; Z82.49 Family history of ischemic heart disease and other diseases of the circulatory system; Z83.3 Family history of diabetes mellitus; Z82.3 Family history of stroke; Z88.5 Allergy status to narcotic agent; Z99.2 Dependence on renal dialysis; Z88.8 Allergy status to other drugs, medicaments and biological substances
CPT/HCPCS: 36415; 74018; 80048; 80053; 80074; 80202; 82962; 85027; G0378; A6260; J0885; J1644; J2501; J3370; J7030; J7050; Q0162; Q0169